=== PATIENT | male | born 1960 | race Caucasian/White ===

== ENCOUNTER 2016-07-16 12:22 | Emergency (ER) | payer OTHER ==
[~2016-07-16] VITALS: Ht 198.1 cm; Wt 104.3 kg
[2016-07-16] MEDS ORDERED: LOVASTATIN 20 M20 MG PO (12:30)
[2016-07-16] MEDS ORDERED: NEURONTIN600 MG PO (12:31)
[2016-07-16] MEDS ORDERED: PRINIVIL20 M1 PO (12:31)
[2016-07-16] MEDS ORDERED: PROAIR HFA8.5 GM INH (13:13)
[2016-07-16] MEDS ORDERED: DOXYCYCLINE 10100 MG PO (13:13)
[2016-07-16] MEDS ORDERED: PREDNISONE 20 M20 MG PO (13:13)
[2016-07-16 13:58] VITALS: BP 145/88
== END 2016-07-16 13:59 | disposition home or self-care (01) ==
LOC: ER 12:22
DX: J44.1 Chronic obstructive pulmonary disease with (acute) exacerbation (principal); J98.01 Acute bronchospasm; F17.200 Nicotine dependence, unspecified, uncomplicated; E11.9 Type 2 diabetes mellitus without complications; F17.210 Nicotine dependence, cigarettes, uncomplicated; I10 Essential (primary) hypertension; E78.00 Pure hypercholesterolemia, unspecified; Z88.0 Allergy status to penicillin

== ENCOUNTER 2018-11-10 09:19 | Emergency (ER) | payer OTHER ==
[~2018-11-10] VITALS: Ht 198.1 cm; Wt 99.8 kg
[~2018-11-10 09:19] MED LIST: DOXYCYCLINE 10100 MG PO; LOVASTATIN 20 M20 MG PO; NEURONTIN600 MG PO; PREDNISONE 20 M20 MG PO; PRINIVIL20 M1 PO; PROAIR HFA8.5 GM INH
[2018-11-10] MEDS ORDERED: CYMBALTA30 MG PO (09:24)
[2018-11-10] MEDS ORDERED: AMARYL2 MG PO (09:24)
[2018-11-10] MEDS ORDERED: GUAIFEN-CODEINE10 ML PO (10:09)
[2018-11-10 10:24] VITALS: BP 127/96
== END 2018-11-10 10:19 | disposition home or self-care (01) ==
LOC: ER 09:19
DX: J06.9 Acute upper respiratory infection, unspecified (principal); E11.9 Type 2 diabetes mellitus without complications; I10 Essential (primary) hypertension; E78.00 Pure hypercholesterolemia, unspecified; F17.210 Nicotine dependence, cigarettes, uncomplicated; Z88.0 Allergy status to penicillin; Z79.899 Other long term (current) drug therapy

== ENCOUNTER 2018-12-28 10:18 | Emergency (ER) | payer OTHER ==
[~2018-12-28] VITALS: Ht 198.1 cm; Wt 102.1 kg
[~2018-12-28 10:18] MED LIST changes: +AMARYL2 MG PO; +CYMBALTA30 MG PO; +GUAIFEN-CODEINE10 ML PO
[2018-12-28 10:25] VITALS: BP 145/78
[2018-12-28] MEDS ORDERED: MEDROLDOSEPACK PO (10:56)
== END 2018-12-28 11:07 | disposition home or self-care (01) ==
LOC: ER 10:18
DX: R21 Rash and other nonspecific skin eruption (principal); I10 Essential (primary) hypertension; E11.9 Type 2 diabetes mellitus without complications; E78.00 Pure hypercholesterolemia, unspecified; F17.210 Nicotine dependence, cigarettes, uncomplicated; Z88.0 Allergy status to penicillin

== ENCOUNTER → 2019-08-26 | Outpatient (CLI) | payer OTHER ==
[~2019-08-26] MED LIST changes: +MEDROLDOSEPACK PO
== END ==
LOC: ULTRA 11:28
DX: I70.213 Atherosclerosis of native arteries of extremities with intermittent claudication, bilateral legs (principal); E78.5 Hyperlipidemia, unspecified; I10 Essential (primary) hypertension; E11.40 Type 2 diabetes mellitus with diabetic neuropathy, unspecified; E11.9 Type 2 diabetes mellitus without complications

== ENCOUNTER → 2020-01-02 | Outpatient (CLI) | payer OTHER | LOC: CAT 13:31 | PROVIDERS: ATTEND Family Medicine | DX: Z12.2 Encounter for screening for malignant neoplasm of respiratory organs (principal); E78.5 Hyperlipidemia, unspecified; I10 Essential (primary) hypertension; E11.40 Type 2 diabetes mellitus with diabetic neuropathy, unspecified; R91.8 Other nonspecific abnormal finding of lung field; F17.200 Nicotine dependence, unspecified, uncomplicated ==

== ENCOUNTER → 2020-02-15 | Outpatient (CLI) | payer OTHER | LOC: PET 14:30 | PROVIDERS: ATTEND Internal Medicine | DX: R91.8 Other nonspecific abnormal finding of lung field (principal) ==

== ENCOUNTER 2020-03-09 06:08 | Inpatient (IN) | payer OTHER ==
[2020-03-06 10:51] LABS: BASOPHILS 2.2 % (0.0-2.0); EOSINOPHILS 1.7 % (0.0-3.0); HEMATOCRIT 46.3 % (42.0-52.0); HEMOGLOBIN 15.3 gm/dL (14.0-18.0); LYMPHOCYTES 28.1 % (24.0-44.0); MCHC 33.1 g/dL (28.0-37.0); MCV 90.5 fL (80.0-100.0); PLATELET COUNT 306 thou/uL (150-400); RBC 5.11 mil/uL (4.50-6.00); RDW 13.2 % (10.5-14.5); WBC 6.8 thou/uL (4.0-11.0)
[2020-03-06 11:05] LABS: URINE BILIRUBIN NEGATIVE (Negative); URINE BLOOD NEGATIVE (Negative); URINE CLARITY CLEAR; URINE COLOR YELLOW; URINE GLUCOSE-RANDOM* NEGATIVE (Negative); URINE KETONES NEGATIVE (Negative); URINE LEUKOCYTES-REFLEX NEGATIVE (Negative); URINE NITRITE-REFLEX NEGATIVE (Negative); URINE PROTEIN (DIPSTICK) NEGATIVE (Negative); URINE UROBILINOGEN 0.2 E.U./dl (0.2-1.0)
[2020-03-06 11:15] LABS: APTT 27.6 Seconds (24.5-32.8); PROTIME 10.5 Seconds (9.3-11.4)
[2020-03-06 11:18] LABS: ALBUMIN 4.2 g/dL (3.4-5.0); CALCIUM 9.4 mg/dL (8.5-10.1); CREATININE 0.9 mg/dL (0.7-1.3); POTASSIUM 4.5 mmol/L (3.5-5.1); TOTAL BILIRUBIN 0.6 mg/dL (0.2-1.0); TOTAL PROTEIN 7.3 g/dL (6.4-8.2)
--- NOTE | 2020-03-06 15:52 | EKG ---
[facility] [place] [address] ELECTROCARDIOGRAM REPORT Name: TRINITYSHAN Manuel Room #: PRE IN ..#: [id number] Admission: Attend Phys: Ankush Mandujano MD Discharge: Date of : 56 Report #: [id number] THIS REPORT FOR: cc: Gary Wade David J. 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
[~2020-03-09] VITALS: Ht 195.6 cm; Wt 107.3 kg
[~2020-03-09 06:08] MED LIST changes: +AMARYL2 MG PER TUBE; -AMARYL2 MG PO; +LOVASTATIN 20 M20 MG PER TUBE; -LOVASTATIN 20 M20 MG PO
[2020-03-09 07:53] VITALS: BP 141/79
[2020-03-09 14:39] VITALS: BP 117/64
[2020-03-09 15:39] VITALS: BP 112/56
[2020-03-09 16:38] VITALS: BP 113/55
--- NOTE | 2020-03-09 18:21 | NUR ---
PT ARRIVED TO ICU ROOM 251 VIA BED FROM PACU @ APPROX 1430. PT DROWSY BUT EASILY AWAKENED, IS APPROPRIATE AND FOLLOWS COMMANDS. O2 3L/MIN VIA NC PLACED, CONTINUOUS CARDIAC MONITORING W/ FREQUENT VS IN PROGRESS. R LAT CHEST TUBE TO 20CM SUCTION. CARDENE INFUSING @ 15MG/HR VIA PUMP. L RADIAL A-LINE IN PLACE AND FUNCTIONAL, ZEROED AND FLUSHED WITHOUT DIFFICULTY. GRADES 1 THRU 6 VISITING TEACHER SET UP UPON ARRIVAL TO UNIT. IV SITES BILATERAL FOREARMS FUNCTIONAL. PT REQUESTS "SOMETHING TO DRINK."
[2020-03-09 19:39] VITALS: BP 119/59
[2020-03-09 21:55] VITALS: BP 109/53
[2020-03-10] VITALS (15 sets, daily range): BP systolic 93–135; BP diastolic 49–75
[2020-03-10 06:21] LABS: HEMATOCRIT 38.9 % (42.0-52.0); HEMOGLOBIN 13.2 gm/dL (14.0-18.0); MCH 30.3 pg (26.0-34.0); MCV 89.3 fL (80.0-100.0); RBC 4.35 mil/uL (4.50-6.00); RDW 13.3 % (10.5-14.5); WBC 19.3 thou/uL (4.0-11.0)
[2020-03-10 06:56] LABS: CALCIUM 8.5 mg/dL (8.5-10.1); CREATININE 0.8 mg/dL (0.7-1.3); POTASSIUM 4.1 mmol/L (3.5-5.1)
--- NOTE | 2020-03-10 10:01 | NUR ---
SON CALLED AT 1000 TO CHECK ON THE PATIENT. HE WANTED TO MAKE SURE HE HAD A GOOD NIGHT AND WAS PROGRESSING IN HIS POC. I INFORMED HIM THAT HE IS IN PAIN DUE TO THE SURGERY AND CHEST TUBE BUT HAS BEEN SLEEPING OFF AND ON AND HE HAD A GOOD NIGHT. SON SAID HE WOULD CALL BACK THIS EVENING TO SEE HOW THE PATIENTS DAY WENT.
[2020-03-11] VITALS (68 sets, daily range): BP systolic 52–187; BP diastolic 31–102
--- NOTE | 2020-03-11 08:47 | NUR ---
ASSUMED CARE OF PT.PT UP IN CHAIR ON ARRIVAL INTO ROOM.VERY RESTLESS,ANXIOUS.GOTTEN BACK TO BED W ASSIST X1 (INITIALLY)-SAT ON SIDE OF BED.PT PALE,DIAPHORETIC,SKIN CLAMMY.HANDS,FINGERS,KNEES MOTTLED PURPLE.QUICK LISTEN WHILE PT UPRIGHT-JOHAN MOVING ANY AIR RT [place] POST.ASSITED INTO BED BY 2.O2 SATS DOWN INITIALLY TO .87-88%,HFNC UP TO 15L. HAD CALLED RE:? IV TYLENOL OR TORADOL PT SPLINTING,NOT COUGHING WELL, FULL OF RHONCHI. PCXR DONE (FULL UPRIGHT). PLACED ON BIPAP & UP TO 100%.2ND CALL TO .--VW
[2020-03-11 14:03] LABS: BE(vivo) -3.2 mmol/L (-2 to +3); HCO3 25.2 mmol/L (22.0-26.0); PCO2 58.8 mmHg (35.0-45.0); PO2 88.4 mmHg (80.0-100.0); sO2 95.2 % (92.0-98.0)
[2020-03-11 15:08] LABS: BE(vivo) -0.7 mmol/L (-2 to +3); HCO3 25.4 mmol/L (22.0-26.0); sO2 96.6 % (92.0-98.0)
--- NOTE | 2020-03-11 16:32 | NUR ---
CONSULTED TO PLACE A MIDLINE FOR A PATIENT NEEDING ADDITIONAL ACCESS. THE RIGHT CEPHALIC VEIN WAS WIDLEY PATENT. A #4F POWER INJECTABLE MIDLINE WAS PLACED. THE LINE WAS TRIMMED TO 12CM AND ADVANCED WITHOUT DIFFICULTY. SECURED AND RELEASED FOR USE
[2020-03-11 22:38] LABS: HEMATOCRIT 41.1 % (42.0-52.0); HEMOGLOBIN 13.1 gm/dL (14.0-18.0); MCH 29.6 pg (26.0-34.0); MCV 92.7 fL (80.0-100.0); RBC 4.44 mil/uL (4.50-6.00); RDW 13.8 % (10.5-14.5); WBC 19.1 thou/uL (4.0-11.0)
[2020-03-11 22:41] LABS: BE(vivo) -5.1 mmol/L (-2 to +3); HCO3 22.7 mmol/L (22.0-26.0); PCO2 53.5 mmHg (35.0-45.0); PO2 112.3 mmHg (80.0-100.0); sO2 97.3 % (92.0-98.0)
[2020-03-11 22:42] LABS: pH 7.246 (7.360-7.450)
[2020-03-11 22:44] LABS: CALCIUM 8.5 mg/dL (8.5-10.1); POTASSIUM 5.1 mmol/L (3.5-5.1)
[2020-03-12] VITALS (50 sets, daily range): BP systolic 88–162; BP diastolic 35–109
--- NOTE | 2020-03-12 03:51 | NUR ---
ASSUMED PT CARE AT 1900. VSS PT HOWEVER GETTING INCREASINGLY CONFUSED, WAS TRYING PULL ON BIPAP. PT STATED " I WANT SOMETHING TO DRINK, I AM TIRED, I DONT WANT TO THIS THIS ANYMORE, JUST PUT ME OUT, JUST KILL ME NOW." RN ATTEMPTED TO REASSURE AND EDUCATE PT. 1999; PT PULLED OUT LEFT RADIAL ART LINE 2007; DR. GUEVARA NOTIFIED OF ART BEING PULLED OUT BY PT AND THE STATEMENT PT MADE. RN NOTIFIED DR THAT PT WAS WEARING OUT. DR GUEVARA ASKED RN TO CALL DR LANGSTON AND UPDATE HIM ON PT STATUS SUGGESTING PT MAY NEED TO BE INTUBATED 2020; RN CALLED DR LANGSTON, RN UPDATED HIM ON PT STATUS, DR LANGSTON RX ONETIME DOSE OF 2MG ATIVAN AND THAT HE WILL CALL BACK 2028; DR LANGSTON CALLED RN BACK, ASKED THAT RN CALL ER DOC TO COME INTUBATE PT STAT. DR LANGSTON ALSO ORDERED ABG FOR 30 MINUTES POST INTUBATION. 2030; CALLED ER TO REQUEST DR PHAM FOR A STAT INUBATION
--- NOTE | 2020-03-12 04:13 | NUR ---
INTUBATION 2049; ASSISTED VENTILATION 2051; PADS APLLIED 2052; PT HR 48; 0.5 ATROPINE GIVEN PER ER DR. PHAM 2058; PT HR 52, 0.5 ATROPINE GIVEN 2099; PT BP 57/37, LEVO GTT STATED PER DR. PHAM 2106; 40MG OF ETOMIDATE 2107; 100MG OF ROCURONIUM 2108; PT INTUBAED BY DR. PHAM WITH A 8.0 ETT 25 AT LIP. VENT SETINGS; AC-20, TV-550, PEEP-5 & FIO2-80% 2112; OGT PLACED AT 60CM 2129; CXR TO CONFIRM TUBE PLACEMENT 2138; LEFT RADIAL ART LINE PLACED BY DR GUEVARA
[2020-03-12 04:18] LABS: BE(vivo) -0.8 mmol/L (-2 to +3); HCO3 24.4 mmol/L (22.0-26.0); PCO2 42.6 mmHg (35.0-45.0); PO2 245.7 mmHg (80.0-100.0); pH 7.376 (7.360-7.450); sO2 99.5 % (92.0-98.0)
--- NOTE | 2020-03-12 04:29 | NUR ---
PT IS STABLE NOW, PT CURRENTLY ON PROPOFOL, CARDIZEM, NS, AND INSULIN GTT. PT SPONTANEOUSLY OPENS EYES WHEN SEDATION IS LIGHTED, PT HAS POSIIVE COUGH AND GAG, FENTANYL 25-50MCG PRN. CHEST TUBES INTACT. WILL CONTINUE TO CLOSELY MOTITOR.
[2020-03-12 04:48] LABS: HEMATOCRIT 38.6 % (42.0-52.0); HEMOGLOBIN 12.7 gm/dL (14.0-18.0); MCH 30.1 pg (26.0-34.0); MCHC 32.8 g/dL (28.0-37.0); MCV 91.9 fL (80.0-100.0); RBC 4.2 mil/uL (4.50-6.00); RDW 13.8 % (10.5-14.5); WBC 14.7 thou/uL (4.0-11.0)
[2020-03-12 04:56] LABS: CALCIUM 8.7 mg/dL (8.5-10.1); CREATININE 0.9 mg/dL (0.7-1.3); POTASSIUM 4.7 mmol/L (3.5-5.1)
--- NOTE | 2020-03-12 07:15 | EKG ---
[facility] [place] [address] ELECTROCARDIOGRAM REPORT Name: SHAN PETERSEN Room #: 251-P ADM IN M.R.#: [id number] Admission: 03/09/20 Attend Phys: Ankush Mandujano MD Discharge: Date of : 56 Report #: [id number] THIS REPORT FOR: cc: Gary Wade David J. DO Santiago, Patrick MD 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[facility] : 1960 Requested By: Ankush Mandujano Order Number: [id number] MD: Vignesh Denson Measurements Intervals Rew Rate: 149 P: [place]: QRS: 63 QRSD: 103 T: 70 QT: 304 QTc: 479 Interpretive Statements Suspect Atrial flutter with varied AV block, Low voltage, extremity and precordial leads Compared to ECG 03/06/2020 10:46:58 ST (T wave) deviation now present Sinus rhythm no longer present Electronically Signed On 03-12-2020 7:15:12 ANALYST GEOCHEMICAL PROSPECTING by Vignesh Denson [email or web address] <ELECTRONICALLY SIGNED> By: Vignesh Denson MD, FACC 03/12/20 0715 134 134 Vignesh Denson MD, FACC /EPI
--- NOTE | 2020-03-12 07:31 | NUR ---
PT'S SON UPDATED ABOUT MOST RECENT EVENTS AT 0732AM.
--- NOTE | 2020-03-12 09:29 | NUR ---
UPDATED DR. GUEVARA AND GEORGE JEFFERSON ON PT STATUS INCLUDING HIS RESTLESSNESS, THEN ACCOMPANIED RESP DISTRESS, AFIB RVR.
--- NOTE | 2020-03-12 09:40 | NUR ---
pt became anxious, then despite rebecca wrist restraints intact, he pulled out his OGT and disconnected the vent tubing from the ett tube. copious clear saliva all over his lower face and neck. face red, pulling at rebecca wrist restraints, tachypneic, resp labored, afib rvr-150's, replaced on vent. sedation increased. pt nodding yes to complaint associated with alcohol withdraw- see ciwa.
--- NOTE | 2020-03-12 11:15 | NUR ---
VAT CONSULTED FOR A PICC FOR MORE ACCESS PT ONLY HAS A ML NOW. OTW EXCHANGE NOT DONE PT NEEDED ML FOR ACCESS FOR PROPOFOL AND NEED FOR PT TO REMAIN CALM FOR PROCEDURE. A 5FRTLPICC PLACED IN RUABRACHIAL AND CXR ORDERED FOR TIP CONFIRMATION. IF TIP IS IN THE SVC IT IS APPROPRIATE FOR USE. PLEASE SEE NI FOR DETAILS
--- NOTE | 2020-03-12 11:43 | NUR ---
ASSESSMENT: CM REVIEWED CHART. PT IS S/P BRONCH AND POD 3 RIGHT THORACTOMY. PT IS CURRENTLY ON THE VENTILATOR AND SEDATED. PT IS A RECENT DIAGNOSIS OF SMALL CELL LUNG CA. PT ADMITS FROM HOME WHERE HE LIVES ALONE. CM SPOKE WITH PATIENTS SON JANEEN WHO REPORTS HE IS ABLE TO HELP ASSIST PT NEEDED. PT LIVES IN A SPLIT LEVEL HOME WITH ABOUT 5 STEPS WITH HANDRAILS TO THE UPPER LEVEL AND ABOUT 5 STEPS WITH HANDRAILS TO THE LOWER LEVEL. PT IS NORMALLY INDEPENDENT WITH ADLS AND AMBULATION AND DOES NOT HAVE ANY DME. PT IS STILL DRIVING AND HAS NO HX OF HH/SNF/ACUTE REHAB. CM DISCUSSED ROLE. CM AVAILABLE TO ASSIST NEEDED ONCE PATIENT IS MORE STABLE TO ASSIST WITH ANY DISCHARGE NEEDS.
--- NOTE | 2020-03-12 12:00 | NUR ---
DR. SANDERSON PREVIOUSLY PRESENT. UPDATED ON PT STATUS INCLUDING RESTLESSNESS, PULLING OUT OG TUBE AND VENT TUBING DESPITE GREG WRIST RESTRAINTS. INFORMED OF PT NODDING YES TO THE MAJORITY OF THE CIWA SCALE SYMPTOMS.
--- NOTE | 2020-03-12 19:00 | NUR ---
PT ON LATERAL ROTATION, THEN WHEN ON RIGHT SIDE & EXPERIENCING RESP DISTRESS, HE BROUGHT UP LARGE AMOUNT THICK MERCADO SECRETIONS PER ETT. RESP STATUS IMPROVED, PT CALMER. STATUS IMPROVED AT THIS TIME. SON CALLED X 2 TODAY, INQUIRING REGARDING PT STATUS. UPDATED. ALL QUESTIONS ANSWERED.
[2020-03-13] VITALS (21 sets, daily range): BP systolic 104–165; BP diastolic 38–77
[2020-03-13 00:10] LABS: HEMATOCRIT 36.7 % (42.0-52.0); MCH 29.6 pg (26.0-34.0); MCHC 32.5 g/dL (28.0-37.0); MCV 90.9 fL (80.0-100.0); RBC 4.04 mil/uL (4.50-6.00); RDW 13.3 % (10.5-14.5); WBC 14.7 thou/uL (4.0-11.0)
--- NOTE | 2020-03-13 06:00 | NUR ---
REMAINS INTUBATED AND SEDATED WITH PROPOFOL GTT 30 MCG BECOMES VERY AGITATED AT TIMES. PRN MED FOR SEDATION. RESTRAINED 190 CC RIGHT CHEST TUBE drg this shift. cardizem 15 mg amio gtt 23 cc/hr insulin gtt. 1200 cc uo this shift will cont to monitor.
[2020-03-13 06:44] LABS: CALCIUM 8.3 mg/dL (8.5-10.1); CREATININE 0.6 mg/dL (0.7-1.3); POTASSIUM 3.7 mmol/L (3.5-5.1)
--- NOTE | 2020-03-13 09:08 | NUR ---
Recommend start enteral nutrition in next 24 hr. Suggest vital AF 1.2 at goal of 70ml/hr. If no feeding pump available, use jevity 1.5, 5 cartons per day. Cl lab is elevated, defer fluid needs to physician.
--- NOTE | 2020-03-13 16:37 | NUR ---
ASSUMED CARE @ 0700 03/13/20, PT ASSESSMENTS AND VSS COMPLETE PER ICU PROTOCOL. PT ENCOUNTERED ON A PROPOFOL GTT FOR VENT MANAGEMENT. DR GUEVARA AND JANEEN VAZQUEZ TO HERE THIS AM FOR TO ROUND, ORDERS FOR PRECEDEX PLACED TO TRY AND TITRATE OFF PROPOFOL OFF, RN NOTICES THAT PRECEDEX IS TITRATED UP , PT STARTS TO GET BRADYCARDIC, PRECEDEX TURNED OFF AND DR GUEVARA INFORMED, PT PLACED BACK ON PROPOFOL. DURING THIS BRADYCARDIC EPISODE, AMIO AND CARDIZEM GTT IS TURNED OFF AND DR GUEVARA AND DR CHEN IS MADE AWARE OF THIS. 09 HANNAH PETERSEN CALLED FOR AN UPDATE ON THE PATIENT, RN VERIFIES CODE AND UPDATE IS GIVEN AT THIS TIME.
[2020-03-14] VITALS (24 sets, daily range): BP systolic 97–151; BP diastolic 41–74
--- NOTE | 2020-03-14 04:04 | NUR ---
ASSUMED PT CARE AT 1900. PT INTUBATED AT SEDATED ON PROPOFOL AT 50MCG. PT DOESNT FOLLW COMMANDS BUT MOVES ALL EXTREMITIES WHENEVER SEDATION IS LIGHTENED. SYSTOLIC BP ELEVATED RANGE OF 180s - 200s AROUND 8PM.ENALAPRILAT GIVEN, BP DOWN TO 130s-150s. PT REMAINED STABLE OVER NOC, NO ACUTE EVENTS, WILL CONTINUE TO MONITOR PER POC.
--- NOTE | 2020-03-14 07:21 | NUR ---
PATIENT CONTINUES TO BE INTUBATED. WHEN SUCTIONING PATIENT RT GOT THICK WHITE/YELLOW WITHOUT A GAG FROM PATIENT.
[2020-03-14 09:44] LABS: CALCIUM 8.2 mg/dL (8.5-10.1); CREATININE 0.5 mg/dL (0.7-1.3); POTASSIUM 3.2 mmol/L (3.5-5.1)
--- NOTE | 2020-03-14 09:58 | 2DMMODE ---
[facility] [place] [address] 2 D/M-MODE ECHOCARDIOGRAM Name: SHAN PETERSEN Room #: 251-P ADM IN M.R.#: [id number] Admission: 03/09/20 Attend Phys: Ankush Mandujano MD Discharge: Date of : 56 Report #: [id number] THIS REPORT FOR: cc: Gary Wade,Vignesh Taylor MD [facility] ~ APPROVED REPORT Study performed: 03/14/2020 09:23:37 EXAM: Comprehensive 2D, Doppler, and color-flow Echocardiogram Patient Location: ICU Room #: 251 Status: routine BSA: 2.35 HR: 84 bpm BP: 118/50 mmHg Rhythm: Atrial Fibrillation Other Information Study Quality: Technically Difficult Technically limited study due to lung disease, patient on ventilator, inability to position patient. Indications Diabetes Atrial Fibrillation Hypertension/HDD 2D Dimensions IVC: 24.00 mm Aortic Valve AoV Peak Edil.: 0.71 m/s AO Peak Gr.: 2.04 mmHg LVOT Max P.58 mmHg LVOT Max V: 0.80 m/s Left Ventricle The left ventricle is normal size. There is normal LV segmental wall motion. There is normal left ventricular wall thickness. Left ventricular systolic function is normal. The left ventricular ejection fraction is within the normal range. LVEF is 55-60%. This study is not technically sufficient to allow evaluation of the LV diastolic function due to atrial fibrillation. [facility] [address] [place] [address] 2 D/M-MODE ECHOCARDIOGRAM Name: SHAN PETERSEN Room #: 251-P ADM IN M.R.#: [id number] Admission: 03/09/20 Attend Phys: Ankush Mandujano MD Discharge: Date of : 56 Report #: [id number] Right Ventricle The right ventricle is normal size. The right ventricular systolic function is normal. Atria The left atrium size is normal. The right atrium size is normal. Aortic Valve The aortic valve is normal in structure. No aortic regurgitation is present. There is no aortic valvular stenosis. Mitral Valve The mitral valve is normal in structure. There is no mitral valve regurgitation noted. No evidence of mitral valve stenosis. Tricuspid Valve The tricuspid valve is normal in structure. There is no tricuspid valve regurgitation noted. Pulmonic Valve The pulmonary valve is normal in structure. There is no pulmonic valvular regurgitation. Great Vessels The aortic root is normal in size. The inferior vena cava is dilated with no inspiratory collapse. Pericardium There is no pericardial effusion. <Conclusion> Study performed in atrial fibrillation Normal ventricular size and wall thickness Ejection fraction 55% Normal right ventricular size and function Normal atrial size No evidence of aortic/mitral valve dysfunction No tricuspid valve insufficiency No pericardial effusion <ELECTRONICALLY SIGNED> By: Vignesh Denson MD, [facility] 11/957 7 7 Vignesh Denson MD, FACC /INF
--- NOTE | 2020-03-14 20:06 | PATH ---
[facility] [place] [address] PATHOLOGY RPT PROCEDURE Name: CLIFFORD HI Room #: 251-P ADM IN M.R.#: [id number] Admission: 03/09/20 Date of : 56 Discharge: Report #: [id number] Path Case #: [id number] [facility] Accession Number: [id number] . 01 Material submitted: . PART A: lung - RIGHT LOWER LOBE BIOPSY - FS. Modifiers: right, lower lobe PART B: lymph node - RIGHT INTERLOBAR NODE 9. Modifiers: right PART C: lymph node - PULMONARY LIGAMENT LYMPH NODE 11 PART D: lymph node - HILAR LYMPH NODE 10 PART E: lymph node - SECOND HILAR NODE 10. Modifiers: second PART F: lymph node - THRID HILAR NODE 10. Modifiers: third PART G: lymph node - 11R LYMPH NODE PART H: lung - RIGHT LOWER LOBE LUNG. Modifiers: right, lower lobe . 01 Clinical history: . RIGHT LUNG MASS PATIENT UNDERGOING THORACOSCOPY, BRONCHOSCOPY AND THORACOTOMY. . 02 Frozen section diagnosis: . FROZEN SECTION DIAGNOSIS: (Marilyn Bond M.D.) . FSA1. Right lower lobe biopsy: - POSITIVE FOR MALIGNANCY, FAVOR NON-SMALL CELL CARCINOMA. . . These findings are discussed with Dr. Ankush Mandujano in OR7 at [facility] and a written report is placed in the patient's chart. . . FROZEN SECTION GROSS DESCRIPTION: A. Specimen is received fresh from the OR labeled with patient's name, and "right lower lobe biopsy", consists of 10 needle core biopsies of white kaye and necrotic tissue measuring an aggregate of 0.3 x 0.3 x 0.1 cm. These represent approximately three cores submitted on gauze. The specimen is entirely submitted for frozen section as FSA1, subsequently submitted for permanent sections as A1. . . Frozen section performed at [facility], [address] [place] [address] , [place] [address]. IZV/QMS . 03 Diagnosis: A. "Right lower lobe biopsy", biopsy: - INVASIVE NON-SMALL CELL CARCINOMA. . B. "Right inner lobar node 9", biopsy: [address] [address] PATHOLOGY RPT PROCEDURE Name: CLIFFORD HI Room #: 251-P [facility] IN .R.#: [id number] Admission: 03/09/20 Date of : 56 Discharge: Report #: [id number] Path Case #: [id number] - Lymph node with no evidence of metastatic carcinoma. (1 node). . C. "Pulmonary ligament lymph node 11", biopsy: - Lymph node with no evidence of metastatic carcinoma. (1 node). . D. "Hilar lymph node 10", biopsy: - Lymph node with no evidence of metastatic carcinoma. (1 node). . E. "Second hilar node 10", biopsy: - Lymph node with no evidence of metastatic carcinoma. (1 node). - Prominent blood vessel and nerve also present. . F. "Third hilar node 10", biopsy: - Lymph node with no evidence of metastatic carcinoma. (1 node). . G. "11 r lymph node", biopsy: - Lymph node with no evidence of metastatic carcinoma. (1 node). . H. "Right lower lobe lung", lobectomy: - LUNG WITH INVASIVE POORLY DIFFERENTIATED CARCINOMA SHOWING SQUAMOUS DIFFERENTIATION AND BASALOID FEATURES, MEASURING 4.8 CM GROSSLY; MARGINS FREE OF INVASIVE CARCINOMA, CLOSEST MARGIN (PARENCHYMAL STAPLE LINE) 0.2 CM AWAY. - Lymph nodes, 4 parenchymal, with no evidence of metastatic carcinoma. (4 nodes). . (CLW:marycruz; 03/14/2020) . . Surgical Pathology Cancer Case Summary LUNG: Resection . Procedure ___ Lobectomy . Specimen Laterality ___ Right . Tumor Site ___ Lower lobe of lung . Tumor Size Greatest dimension (centimeters): 4.8 cm . Tumor Focality ___ Single focus . Histologic Type [address] [address] PATHOLOGY RPT PROCEDURE Name: CLIFFORD HI Room #: 251-P ADM IN M.R.#: [id number] Admission: 03/09/20 Date of : 56 Discharge: Report #: [id number] Path Case #: [id number] ___ Other histologic type not listed (specify): Invasive poorly differentiated carcinoma with squamous differentiation and basaloid features. . + Histologic Grade + ___ G3: Poorly differentiated . Visceral Pleura Invasion ___ Not identified . Lymphovascular Invasion ___ Not identified . Direct Invasion of Adjacent Structures ___ No adjacent structures present . Margins ___ All margins are uninvolved by tumor . Margins examined (specify): Parenchymal and bronchovascular . Distance of invasive carcinoma from closest margin (centimeters): 0.2 cm Specify closest margin: Parenchymal . Regional Lymph Nodes Number of Lymph Nodes Involved: 0 . Number of Lymph Nodes Examined: 10 . Treatment Effect ___ No known presurgical therapy . Pathologic Stage Classification (pTNM) (AJCC 8th Edition) Primary Tumor (pT) ___ pT2b:Tumor >4 cm, but <=5 cm in greatest dimension . Regional Lymph Nodes (pN) ___ pN0:No regional lymph node metastasis . (CLW:marycruz; 03/14/2020) R 03/14/20201957 Local . 03 Comment: Properly controlled immunohistochemical stains are performed. . Block H4: AE1/AE3 - tumor cells very focally reactive; [address] [address] PATHOLOGY RPT PROCEDURE Name: CLIFFORD HI Room #: 251-P ADM IN M.R.#: [id number] Admission: 03/09/20 Date of : 56 Discharge: Report #: [id number] Path Case #: [id number] P63 - tumor cells very focally reactive; P40 - tumor cells very focally reactive; TTF-1 - tumor cells nonreactive; Napsin A - tumor cells nonreactive; CD56 - tumor cells nonreactive; Synaptophysin - tumor cells nonreactive; CK7 - tumor cells very focally reactive; CK20 - tumor cells nonreactive. . Block H7: AE1/AE3 - nonreactive. . Block H4 is co-reviewed with Dr. Ashley Mancera. Clinical and radiographic correlation is recommended. . (CLW:marycruz; 03/14/2020) . 03 Electronically signed: . Yelena Serrano MD, Pathologist NPI- [id number] . 01 Gross description: . A. PLEASE SEE GROSS DESCRIPTION UNDER FROZEN SECTION. . B. The specimen is received in formalin, labeled "Kolton Clifford, right interlobar node 9" and consists of a lymph node measuring 0.5 x 0.4 x 0.3 cm showing black-kaye cut surfaces. The specimen is entirely submitted in B1. . C. The specimen is received in formalin, labeled "Kolton, Clifford, pulmonary ligament lymph node 11" and consists of 2 segments of yellow-black tissue measuring 0.6 x 0.4 x 0.2 cm and 0.7 x 0.6 x 0.3 cm which are entirely submitted in C1. . D. The specimen is received in formalin, labeled "Hi Clifford, hilar lymph node 10" and consists cysts of a segment of black-yellow tissue measuring 1.4 x 1.4 x 0.7 cm showing black-hill cut surfaces. The specimen is entirely submitted in D1. . E. The specimen is received in formalin, labeled "Hi Clifford, second hilar node 10" and consists of a segment of yellow-black tissue measuring 0.6 x 0.4 x 0.3 cm which is entirely submitted in E1. . F. The specimen is received in formalin, labeled "HiClifford, third hilar node 10" and consists of a fragment of brown tissue measuring 0.4 x 0.4 x 0.2 cm which is entirely submitted in F1. . G. The specimen is received in formalin, labeled "Cliffodr Hi, 11R [facility] [address] [place] [address] PATHOLOGY RPT PROCEDURE Name: CLIFFORD HI E Room #: 251-P ADM IN M.R.#: [id number] Admission: 03/09/20 Date of : 56 Discharge: Report #: [id number] Path Case #: [id number] lymph node" and consists of a segment of black brown tissue measuring 1.4 x 1.2 x 0.8 cm showing black hill cut surfaces. The specimen is entirely submitted in G1. . H. The specimen is received in formalin, labeled "Clifford Hi, right lower lobe lung" and consists of a 244 g right lower lobe measuring 15.5 x 12.5 x 5.7 cm with a 0.5 cm long bronchovascular stump. There are 2 lines of irvin measuring 1.6 cm and 2.6 cm. The visceral pleural is purple with a palpable mass/induration that grossly approaches the longer staple line measuring approximately 4.2 cm in greatest dimension. The pleura in this area is inked blue, and the staple lines are removed and further inked yellow. The bronchi are opened revealing no gross lesions. Serial sectioning reveals a white mass with firm to friable cut surfaces measuring 4.8 x 3.1 cm that abuts the pleura, 0.8 cm to the bronchovascular stump, and approaches the longer staple line. The mass grossly approaches one bronchi. The uninvolved parenchyma is brown to maroon with no additional masses. 4 additional lymph nodes are identified at the hilum. [employer] sections are submitted as follows: . H1: Bronchovascular stump H2: Longer staple line H3: Mass to bronchi H4: Mass to pleura H5: Additional mass H6: Uninvolved parenchyma H7: 1 trisected lymph node H8: 3 intact lymph nodes (SDY; 03/11/2020) SYU/SYU 03/12/2020 0703 Local . 03 Pathologist provided ICD-10: C34.31 . 03 CPT . 032153, 198803, 058240, T75121, J15912 Specimen Comment: A courtesy copy of this report has been sent to [phone], [phone] Specimen Comment: [phone] Specimen Comment: Report sent to / DR MAGANA Performed at: [address] [id number] MD Kalin Brand MD Phone: [phone] Performed at: [address] [id number] MD Marilyn Bond MD Phone: [phone] Performed at: [address] [address] PATHOLOGY RPT PROCEDURE Name: CLIFFORD HI Room #: 251-P [facility] IN M.R.#: [id number] Admission: 03/09/20 Date of : 56 Discharge: Report #: [id number] Path Case #: [id number] [facility] [place] [address] [place] [address], [place], [place] [id number] MD Brooke Calles MD Phone: [phone]
[2020-03-15] VITALS (20 sets, daily range): BP systolic 91–140; BP diastolic 40–71
--- NOTE | 2020-03-15 03:53 | NUR ---
Arterial line went flat and nurse went to assess it. Nurse flushed it, pulse felt, it is weak. Waver form is back, however, it is dampened. Nurse to continue to monitor arterial line site.
--- NOTE | 2020-03-15 04:46 | NUR ---
Patient not progressing towards plan of care. When sedation lightened, he becomes tachypnic RR upper 20's, tachycardic with heart rates in the lower 100's, and hypertensive with blood pressures reading in the upper 100's. He opened his eyes and nurse asked him if he were in pain, in which he relied yes by nodding with eyes wide open. Pain medication was provided. Arterial line no longer has a good wave form and will not draw. Cuff pressures are 30-50 points higher. It is a dampened waveform. Nurse to continue to monitor patient status. Plan of care is to continue to evaluate readiness to wean off ventilator, lighten sedation as patient tolerates, monitor vital signs, monitor chest tube site and output. No crepitus noted.
[2020-03-15 06:23] LABS: CALCIUM 8.2 mg/dL (8.5-10.1); CREATININE 0.7 mg/dL (0.7-1.3); POTASSIUM 3.6 mmol/L (3.5-5.1)
--- NOTE | 2020-03-15 11:04 | O ---
[facility] [place] [address] OPERATIVE REPORT Name: SHAN PETERSEN Room #: 251-P [facility] IN M.R.#: [id number] Admission: 03/09/20 Attend Phys: Ankush Mandujano MD Discharge: Date of : 56 Report #: [id number] THIS REPORT FOR: cc: Gary Wade David J. DO Forman, John M. MD ~ CC: Gary Mandujano DATE OF SERVICE: 03/09/2020 PREOPERATIVE DIAGNOSIS: Right lower lobe of lung lesion. POSTOPERATIVE DIAGNOSIS: Right lower lobe of lung lesion, suspicious for non-small cell carcinoma by frozen section. OPERATION: Bronchoscopy, right thoracotomy with lower lobectomy and mediastinal lymph node dissection. SURGEON: Ankush Mandujano MD COVERAGE ANALYST: GEORGE Wall. ANESTHESIA: General. INDICATIONS: The patient is a 60-year-old with a right lower lobe pulmonary lesion found when the patient had a screening CT scan. PET scan shows activity in this lesion. The patient has decent pulmonary function by spirometry. 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 FINDINGS AND TECHNIQUE: After general anesthesia was established, a flexible diagnostic bronchoscopy was performed. No endobronchial lesions were noted. A double lumen tube was placed, but we could not get a good position of the tube and therefore, a standard tube was placed with a bronchial lois. This was positioned under bronchoscopic guidance. The patient was positioned with right side up. Exposure was obtained through right posterolateral thoracotomy entering the fifth interspace using a nerve sparing, rib sparing approach. The lesion in the lower lobe was along the oblique fissure, but did not appear across it grossly. Core biopsies were taken of this and this showed a suspicion of non-small cell carcinoma by frozen. With this information, the lobectomy was performed. Dissection was began at the hilum to expose the interlobar pulmonary artery dissection along the pleural [facility] [address] [place] [address] OPERATIVE REPORT Name: TRINITYSHAN Room #: 251-P [facility] IN ..#: [id number] Admission: 03/09/20 Attend Phys: Ankush Mandujano MD Discharge: Date of : 56 Report #: [id number] reflection of the mediastinum was performed. Pulmonary ligament was divided. Pulmonary ligament lymph nodes were submitted for permanent pathology. Inferior pulmonary vein was identified. Pulmonary arterial branches to the lower lobe were ligated and divided. Inferior pulmonary vein was stapled and divided. Centrally, the rudimentary fissure between the middle lobe and lower lobe was completed with the stapler to exclude any communication with the lower lobe. When all of the vessels were divided, the bronchus was clamped and the ventilation was tested. Bronchus was stapled and divided. The lobe was submitted for permanent pathology. Bronchial stump was tested and found to be secure. Hemostasis was ascertained. Lymph nodes in the hilum were dissected and submitted for permanent pathology and the area above the azygos vein was explored for nodes. When hemostasis was satisfactory, chest was irrigated with antibiotic solution. The middle lobe and upper lobe were tacked together to prevent torsion. Two chest tubes were brought through separate stab wounds and then the chest was closed in the usual fashion to complete the nerve sparing, rib sparing approach. The patient was taken to the recovery area in good condition having tolerated the procedure well. All counts reported as correct. <ELECTRONICALLY SIGNED> By: Ankush Mandujano MD 03/15/20 1104 1310 1355 Ankush Mandujano MD /nt
--- NOTE | 2020-03-15 14:37 | NUR ---
0700-ASSUMED CARE OF PT.--VW
[2020-03-16] VITALS (34 sets, daily range): BP systolic 87–216; BP diastolic 45–89
--- NOTE | 2020-03-16 05:23 | NUR ---
ASSUMED PT ARE AT 1900. VSS. PT INTUBATED AT SEDATED. SEDATION VACATION FOR 7 MINUTES FROM PROPOFOL AT 50MCG. PT FOLLOWS PARTIAL COMMANDS; WILL OPEN EYES BUT WONT SQUEEZ RN'S HANDS OR WIGGLE TOES. PT NOW ON 40MCG OF PROPOFOL; HE IS TOLERATING THIS WELL. DRESSING CHANGE TO R SIDE SURGICAL SITE THIS SHIFT, SITE UNDER DRESSING IS APPROXIMATED WELL AND INTACT. CHEST TUBE IN PLACE; DRESSING CDI. PT GOT I CARTON OF JEVITY 1.5 BOLUS AT 2029; TOLERATED WELL. PT IS STABLE FOR NOW. WILL CONTINUE TO CLOSELY MONITOR.
[2020-03-16 07:46] LABS: HEMATOCRIT 34.5 % (42.0-52.0); HEMOGLOBIN 11.7 gm/dL (14.0-18.0); MCH 30.1 pg (26.0-34.0); MCHC 33.7 g/dL (28.0-37.0); MCV 89.1 fL (80.0-100.0); RBC 3.88 mil/uL (4.50-6.00); RDW 13.4 % (10.5-14.5); WBC 15.7 thou/uL (4.0-11.0)
[2020-03-16 08:07] LABS: CREATININE 0.7 mg/dL (0.7-1.3); POTASSIUM 3.2 mmol/L (3.5-5.1)
[2020-03-16 11:57] LABS: BE(vivo) 2.3 mmol/L (-2 to +3); PO2 99.7 mmHg (80.0-100.0); pH 7.464 (7.360-7.450); sO2 97.9 % (92.0-98.0)
--- NOTE | 2020-03-16 12:23 | NUR ---
TOOK OVER CARE OF PATIENT AT 0700. CPAP TRIAL DONE AT 1030 TO 1130, RT ARLETH BLOOD FOR ABG. DR. HULL AT BEDSIDE AT 1200 AND SAID LONG PATIENTS ABG LOOKS GOOD AND DR. WICK IS OK WITH IT THEN WE WILL WORK ON EXTUBATION. DR. WICK AT BEDSIDE AT 1225 AND HE SAID LONG THE ABG RESULTS ARE GOOD THEN WE WILL WORK ON EXTUBATION.
[2020-03-16 16:11] LABS: BE(vivo) 1.6 mmol/L (-2 to +3); HCO3 25.2 mmol/L (22.0-26.0); PCO2 36.5 mmHg (35.0-45.0); PO2 77.2 mmHg (80.0-100.0); pH 7.457 (7.360-7.450); sO2 96.1 % (92.0-98.0)
[2020-03-17] VITALS (42 sets, daily range): BP systolic 82–158; BP diastolic 31–74
[2020-03-17 04:51] LABS: BE(vivo) -2.3 mmol/L (-2 to +3); HCO3 21.8 mmol/L (22.0-26.0); PCO2 35.3 mmHg (35.0-45.0); PO2 83.1 mmHg (80.0-100.0); pH 7.408 (7.360-7.450); sO2 96.4 % (92.0-98.0)
[2020-03-17 05:08] LABS: HEMATOCRIT 35.8 % (42.0-52.0); HEMOGLOBIN 11.4 gm/dL (14.0-18.0); MCHC 31.8 g/dL (28.0-37.0); MCV 91.2 fL (80.0-100.0); RBC 3.93 mil/uL (4.50-6.00); RDW 13.9 % (10.5-14.5); WBC 16.1 thou/uL (4.0-11.0)
[2020-03-17 05:18] LABS: POTASSIUM 3.1 mmol/L (3.5-5.1)
[2020-03-17 05:19] LABS: CALCIUM 7.8 mg/dL (8.5-10.1); CREATININE 0.8 mg/dL (0.7-1.3)
--- NOTE | 2020-03-17 10:35 | NUR ---
ASSUMED CARE OF PATIENT AT 0700. DR. MARCH AT BEDSIDE AT 0930 HE SAID HE THINKS THE PATIENT HAS CRITICAL CARE NEUROMYOPATHY AND THAT THE ONLY THING TO DO IS GIVE THE PATIENT TIME. HE CALLED BACK ABOUT 1 MINUTES LATER WITH NEW LAB PALLAVI.
[2020-03-17 14:06] LABS: ANA INTERPRETATION Negative (Negative)
[2020-03-18] VITALS (31 sets, daily range): BP systolic 104–159; BP diastolic 35–67
[2020-03-18 05:34] LABS: HEMATOCRIT 36.2 % (42.0-52.0); HEMOGLOBIN 11.8 gm/dL (14.0-18.0); MCH 29.1 pg (26.0-34.0); MCHC 32.5 g/dL (28.0-37.0); MCV 89.6 fL (80.0-100.0); RBC 4.04 mil/uL (4.50-6.00); RDW 13.6 % (10.5-14.5); WBC 19.2 thou/uL (4.0-11.0)
[2020-03-18 05:45] LABS: CALCIUM 7.9 mg/dL (8.5-10.1); CREATININE 0.6 mg/dL (0.7-1.3); POTASSIUM 3.8 mmol/L (3.5-5.1)
--- NOTE | 2020-03-18 09:00 | NUR ---
Assumed care from night RN, Danyelleece at 0700 today. Patient placed on a sedation vacation 0835 to 0855, please refer to vital sign entry. Patient would open eyes and look around but would not follow any commands. VSS except BP increased when awake. Tube feeding tiatrated for low residuals. Will continue to monitor.
[2020-03-18 11:34] LABS: HEMATOCRIT 35.7 % (42.0-52.0); HEMOGLOBIN 11.4 gm/dL (14.0-18.0); MCH 28.8 pg (26.0-34.0); MCHC 31.9 g/dL (28.0-37.0); MCV 90.1 fL (80.0-100.0); RBC 3.97 mil/uL (4.50-6.00); RDW 13.7 % (10.5-14.5); WBC 17.5 thou/uL (4.0-11.0)
[2020-03-18 11:48] LABS: INR 1.1; PROTIME 11.1 Seconds (9.3-11.4)
--- NOTE | 2020-03-18 13:15 | NUR ---
CARDIOLOGY IN AT 1200 AND INFORMED OF COOLER FOOT, NO ORDERS DR KO IN AT 1300 AND ALSO INFORMED OF LEFT FOOT BEING COOLER, ORDER NOTED. PATIENT IS ON HEPARIN DRIP FOR BILATERAL UPPER EXTERMITY CLOTS.
--- NOTE | 2020-03-18 19:00 | NUR ---
PATIENT IS SLOWLY PROGRESSING TOWARDS OUTCOME GOALS. WILL MOVE R ARM AND LEG WHEN SEDATION IS LIGHTENED, OPENS EYES SPONTANOUSLY. ARTERIAL DOPPLER OF LEFT LEG DONE AT BEDSIDE. TOLERATING TUBE FEEDING AND RATE INCREASED TO GOAL.
[2020-03-19] VITALS (24 sets, daily range): BP systolic 110–160; BP diastolic 49–75
--- NOTE | 2020-03-19 03:54 | NUR ---
ASSUMED PT CARE AT 1900. VSS. PT INTUBATED AND SEDATED. TRACKS WITH EYES BUT DOESNT FOLLOW COMMANDS. PT HAD AN UNEVENTFUL NIGHT. CHEST TUBE, SURGICAL DRESSING INTACT. PT IS STABLE, WILL CONTINUE TO MONITOR.
[2020-03-19 05:10] LABS: BE(vivo) 4.3 mmol/L (-2 to +3); HCO3 28.9 mmol/L (22.0-26.0); PCO2 43.2 mmHg (35.0-45.0); pH 7.443 (7.360-7.450); sO2 92.5 % (92.0-98.0)
[2020-03-19 06:09] LABS: HEMATOCRIT 34.9 % (42.0-52.0); HEMOGLOBIN 11.5 gm/dL (14.0-18.0); MCH 29.7 pg (26.0-34.0); MCV 89.9 fL (80.0-100.0); RBC 3.88 mil/uL (4.50-6.00); RDW 13.5 % (10.5-14.5); WBC 22.8 thou/uL (4.0-11.0)
[2020-03-19 06:19] LABS: CALCIUM 8.3 mg/dL (8.5-10.1); CREATININE 0.6 mg/dL (0.7-1.3); POTASSIUM 3.6 mmol/L (3.5-5.1)
--- NOTE | 2020-03-19 14:44 | NUR ---
chart review. unable to visit with annabella rt remains on vent, chest tube and has nutritional support. will cont following as needed for dc needs.
--- NOTE | 2020-03-19 15:33 | NUR ---
ASSUMED CARE OF THE PATIENT AT 0700. DR. GUEVARA AND JANEEN AT BEDSIDE AT [address] GUEVARA WONDERING IF THERE ARE ANY PLANS TO WEEN OR EXTUBATE HIM. I TOLD HIM I HADN'T HEARD OF ANY TODAY.
--- NOTE | 2020-03-19 17:58 | NUR ---
SPOKE TO SON AT 1100 AND JUST GAVE AN UPDATE BASED ON THE POC. SPOKE TO HER DAUGHTER IN ORDER TO FILL OUT THE MRI SHEET AT 1500. I ALSO GAVE HER AN UPDATE BASED ON POC AND SHE WOULD LIKE TO SEE IF IT'S POSSIBLE TO CALL AND SEE HER MOM. DR. RIVERA AT BEDSIDE AT 1659. NO NEW ORDERS GIVEN SPOKE TO DR. LANGSTON AT 1750 TO SEE IF HE WANTED TO START TUBE FEEDS BASED ON DIETARIES RECOMMENDATIONS AND HE SAID THAT WOULD BE FINE.
[2020-03-20] VITALS (24 sets, daily range): BP systolic 108–157; BP diastolic 49–85
[2020-03-20 04:57] LABS: HEMATOCRIT 34.6 % (42.0-52.0); HEMOGLOBIN 11.1 gm/dL (14.0-18.0); MCH 28.9 pg (26.0-34.0); MCHC 32.1 g/dL (28.0-37.0); MCV 90.1 fL (80.0-100.0); PLATELET COUNT 283 thou/uL (150-400); RBC 3.85 mil/uL (4.50-6.00); RDW 13.7 % (10.5-14.5); WBC 22.1 thou/uL (4.0-11.0)
[2020-03-20 05:03] LABS: BE(vivo) 4.6 mmol/L (-2 to +3); HCO3 28.8 mmol/L (22.0-26.0); PCO2 40.9 mmHg (35.0-45.0); PO2 61.1 mmHg (80.0-100.0); pH 7.465 (7.360-7.450); sO2 92.7 % (92.0-98.0)
--- NOTE | 2020-03-20 05:09 | NUR ---
Patient not progressing towards plan of care as evidenced by continued need for ventilator, no weaning trials at this time. Patient has large amount of inline sputum that is mainly brought up by coughing when sedation is paused. Patient has a strong gag/cough and does not tolerate lightened sedation as it alarms the vent and his oxygenation levels lower into the 90% range. When he is sedated, his respiratory rate and effort is not as labored and his coughing is not as strong, which appears to affect his breathing. Plan of care is to continue to monitor patient vital signs, assessments, and need for breathing support.
[2020-03-20 05:31] LABS: ALBUMIN 1.3 g/dL (3.4-5.0); CALCIUM 8.2 mg/dL (8.5-10.1); CREATININE 0.6 mg/dL (0.7-1.3); POTASSIUM 3.6 mmol/L (3.5-5.1); TOTAL BILIRUBIN 0.3 mg/dL (0.2-1.0); TOTAL PROTEIN 5.4 g/dL (6.4-8.2)
[2020-03-20 06:47] LABS: ABSOLUTE NEUTROPHILS 17.7 thou/uL (1.4-8.2); LARGE PLATELETS FEW; PLATELET ESTIMATE NORMAL
--- NOTE | 2020-03-20 15:42 | NUR ---
PT SEEN TODAY BY , PLAN IS TO DC THE AMIO GTT AND CONVERT TO PO, AND TO DECREASE PO DOSE IN COUPLE WEEKS. PT ALSO SEEN BY , NEUROLOGIST WOULD LIKE AN MRI DONE TO EVALUATE NEUROMUSCULAR FUNCTIONS OR LACK THEREOF. GAVE THE CLEARANCE FOR MRI WITH THE CHEST TUBE STILL IN PLACE, PER CHEST TUBE CAN COME OUT WHEN VENTILATOR IS NO LONGER A NECESSITY. ALSO WANTED TO DO A CERVICAL SPINE IMAGING DURING MRI. RADIOLOGY CALLED FOR CLARIFICATION. AT THIS CURRENT TIME. MRI IS NOT FEASIBLE DUE TO PATIENT CONDITION AND PT'S REQUIREMENT FOR DRIP MEDICATION (HEPARIN/PROPOFOL/AMIO), RN WILL COMMUNICATE WITH ONCOMING RN TO FACILIATE A GOAL TO WORK TOWADS WEANING PT OFF DRIPS TO GET DIAGNOSTICS DONE. 1509 - RN SPOKE WITH SON REGARDING PT'S CURRENT STATUS AND SPOKE ABOUT NOT BEING ABLE TO GO TO MRI WELL PT STILL NEEDING VENTILATION AND SEDATION GTT. PT ALSO STATED THAT HE WILL UPDATE PT'S FRIENDS ON HIS FATHER'S BEHALF. RN IS COMMUNICATING WITH RT AT THIS TIME TO FORMULATE A PLAN OF CPAP TRIAL, CURRENT HINDRANCES ARE INCREASES IN PT'S RR DURING PROPOFOL WEANING WELL SA THE RATE OF PROPOFOL INFUSION/PT'S TOLERANCE TO PROPOFOL. WILL CONTINUE TO ASSESS/INTERVENE UPDATE NEEDED
[2020-03-21] VITALS (20 sets, daily range): BP systolic 103–152; BP diastolic 45–91
[2020-03-21 05:19] LABS: BE(vivo) 3.2 mmol/L (-2 to +3); HCO3 26.7 mmol/L (22.0-26.0); PCO2 36.8 mmHg (35.0-45.0); PO2 62.3 mmHg (80.0-100.0); pH 7.478 (7.360-7.450); sO2 93.4 % (92.0-98.0)
[2020-03-21 06:26] LABS: HEMATOCRIT 31.5 % (42.0-52.0); HEMOGLOBIN 10.1 gm/dL (14.0-18.0); MCH 28.9 pg (26.0-34.0); MCHC 32.1 g/dL (28.0-37.0); MCV 89.9 fL (80.0-100.0); PLATELET COUNT 326 thou/uL (150-400); RDW 13.4 % (10.5-14.5); WBC 22.3 thou/uL (4.0-11.0)
--- NOTE | 2020-03-21 06:40 | NUR ---
PATIENT REMAINS SEDATED ON VENT. NO CHANGE IN VENT THIS SHIFT; TOLERATED. TOLERATED TUBE FEEDING WITH 20CC RESIDUALS. TUBE FEEDINGS AT GOAL. REMAINS WITH COPIOUS SECRETIONS. SUNCTIONED FREQUENTLY. BATH GIVEN. [id number]. REMAINS WITH MILD FEVER, TYNENOL GIVEN X1. DOES LIFT ARMS AND MOVES FINGERS AT TIMES. OPEN EYES SOME. CONTINUE TO WORK ON POC AND MONITOR CLOSELY.
[2020-03-21 06:49] LABS: ALBUMIN 1.3 g/dL (3.4-5.0); CREATININE 0.6 mg/dL (0.7-1.3); POTASSIUM 3.4 mmol/L (3.5-5.1); TOTAL BILIRUBIN 0.2 mg/dL (0.2-1.0); TOTAL PROTEIN 4.7 g/dL (6.4-8.2)
[2020-03-21 11:24] LABS: LARGE PLATELETS OCCASIONAL; METAMYELOCYTES 1 %
--- NOTE | 2020-03-21 12:14 | NUR ---
DIETARY CAME BY AT 0930 AND I ASKED ABOUT WATER FLUSHES. SHE SAID DUE TO THE EDEMA THAT WE NEEDED TO ASK DR. LANGSTON OR THE [employer] AT [facility] ABOUT IT.
[2020-03-22] VITALS (22 sets, daily range): BP systolic 90–166; BP diastolic 44–79
[2020-03-22 04:17] LABS: BE(vivo) 6.2 mmol/L (-2 to +3); HCO3 30.2 mmol/L (22.0-26.0); PCO2 41.3 mmHg (35.0-45.0); PO2 59.1 mmHg (80.0-100.0); pH 7.482 (7.360-7.450); sO2 92.3 % (92.0-98.0)
--- NOTE | 2020-03-22 04:59 | NUR ---
Assumed pt care at 1900. Pt sedated, opens eyes but unable to follow command. No sign of distress noted in pt. Vital signs stable. Fall precaution in place. Assessment completed and documented. Scheduled meds administered pt. No acute events overnight. Continue to monitor. No futher needs at this time.
[2020-03-22 06:45] LABS: HEMATOCRIT 31.3 % (42.0-52.0); MCH 28.7 pg (26.0-34.0); MCHC 31.9 g/dL (28.0-37.0); MCV 89.8 fL (80.0-100.0); PLATELET COUNT 357 thou/uL (150-400); RBC 3.48 mil/uL (4.50-6.00); RDW 13.8 % (10.5-14.5); WBC 17.6 thou/uL (4.0-11.0)
[2020-03-22 07:08] LABS: ALBUMIN 1.3 g/dL (3.4-5.0); CALCIUM 8.4 mg/dL (8.5-10.1); CREATININE 0.7 mg/dL (0.7-1.3); POTASSIUM 3.4 mmol/L (3.5-5.1); TOTAL BILIRUBIN 0.2 mg/dL (0.2-1.0); TOTAL PROTEIN 5.6 g/dL (6.4-8.2)
[2020-03-22 09:21] LABS: ABSOLUTE NEUTROPHILS 12.8 thou/uL (1.4-8.2); METAMYELOCYTES 2 %; MYELOCYTES 2 %
[2020-03-22 09:22] LABS: ANISOCYTOSIS SLIGHT
[2020-03-22 10:56] LABS: BE(vivo) 6.5 mmol/L (-2 to +3); HCO3 32.2 mmol/L (22.0-26.0); PCO2 49.8 mmHg (35.0-45.0); PO2 60.8 mmHg (80.0-100.0); pH 7.429 (7.360-7.450); sO2 91.6 % (92.0-98.0)
--- NOTE | 2020-03-22 17:53 | NUR ---
0800 CPAP TRIAL ORDERED PER IVIS. PT IN CPAP [phone]. RETURNED TO AC DUE TO HR 110'S AND SYSTOLIC BP IN 150'S. AFEBRILE. CONTINUING HEPARIN GTT. CHEST TUBE OUTPUT 70 ML THROUGHOUT SHIFT. PROGRESSING IN PLAN OF CARE
[2020-03-23] VITALS (29 sets, daily range): BP systolic 103–148; BP diastolic 41–78
--- NOTE | 2020-03-23 06:45 | NUR ---
ASSUMED PT CARE AT 1900. VSS. PT STILL ON PROPOFOL AND HEPARIN. HEPARIN ADJUSTED PER PT. PT STILL REQUIREING PROPOFOL AT 60MCG HE TRASHES AND BECOMES TACHPNEIC WHEN DOSE LESS THAN THAT. PT FOLLOWS COMMANDS WHEN SEDATION IS LIGHTENED, FACIAL GRIMACES TO PAIN AND HAS POSITIVE COUGH AND GAG. CHEST TUBE SITE INTACT. 150 OUT THIS SHIFT. WILL CONTINUE TO MONITOR.
--- NOTE | 2020-03-23 10:14 | NUR ---
ASSUMED CARE OF PATIENT AT 0700. DR. BARNES FROM NEURO AT BEDSIDE AT 1012. SHE INDICATED DUE TO THE SMOKING AND POOR LUNG HEALTH HE MAY BE DIFFICULT TO GET OFF THE VENTALATOR.
--- NOTE | 2020-03-23 15:44 | NUR ---
chart review. he cont to require vent, with nutritional support. cm visited with libia loza via home call, no concerns or needs voiced. " talk with staff often and going to be up for visit soon. thank you for calling"/libia loza. no anticipated dc over the weekend. will cont following as needed for dc needs.
[2020-03-24] VITALS (26 sets, daily range): BP systolic 91–144; BP diastolic 47–70
--- NOTE | 2020-03-24 01:22 | NUR ---
PATIENT HAD A BOWEL MOVEMENT, BATH GIVEN, TURNED SIDE TO SIDE. PATIENT HAS A PRODUCTIVE COUGH, HOWEVER, WHEN SUCTIONED, NOTHING COMES INLINE, SPUTUM ORTIZ. AFTER HIS BATH, HIS OXYGEN SATURATION DECREASED TO THE LOWEST AT 85%. NURSE PERFORMED 100% O2 SUCTION, WHICH ELEVATED HIS OXYGENATION LEVEL TO 95%. THIS HELPED FOR A BIT, THEN WHEN THE TIME FRAME WAS OVER, HIS OXYGENATION SATURATION DROPPED AGAIN, AT 40% FIO2. HME WAS CONGESTED, IT WAS CHANGED. SUCTION WAS PROVIDED AGAIN. NURSE TALKED WITH RT AND FIO2 WAS INCREASED TO 75%. AT THIS TIME, HIS OXYGENATION SATURATION IS 89%. NURSE TO TURN HIM BACK TO HIS BACK TO SEE IF THIS HELPS INCREASE HIS OXYGEN SATRUATION.
--- NOTE | 2020-03-24 03:35 | NUR ---
Patient not progressing towards plan of care as evidenced by when he is turned, he desaturates and does not tolerate it. He is able to communicate when he is in pain and nod yes/no. Chest tube is in place as documented. Plan is to wean off ventilator as tolerated and directed by physician.
[2020-03-24 04:48] LABS: HEMATOCRIT 31.6 % (42.0-52.0); MCH 28.5 pg (26.0-34.0); MCHC 31.5 g/dL (28.0-37.0); MCV 90.2 fL (80.0-100.0); RBC 3.5 mil/uL (4.50-6.00); RDW 13.9 % (10.5-14.5); WBC 20.8 thou/uL (4.0-11.0)
[2020-03-24 07:33] LABS: CALCIUM 8.9 mg/dL (8.5-10.1); CREATININE 0.6 mg/dL (0.7-1.3); POTASSIUM 3.6 mmol/L (3.5-5.1)
[2020-03-24 12:31] LABS: BE(vivo) 5.3 mmol/L (-2 to +3); HCO3 31.7 mmol/L (22.0-26.0); PCO2 55.9 mmHg (35.0-45.0); PO2 79.2 mmHg (80.0-100.0); pH 7.372 (7.360-7.450); sO2 95.2 % (92.0-98.0)
--- NOTE | 2020-03-24 12:43 | O ---
[facility] [place] [address] OPERATIVE REPORT Name: SHAN PETERSEN Room #: 251-P [facility] IN M.R.#: [id number] Admission: 03/09/20 Attend Phys: Ankush Mandujano MD Discharge: Date of : 56 Report #: [id number] THIS REPORT FOR: cc: Gary Wade,Gary Fraser,Ankush Villalobos MD ~ CC: Gary Mandujano DATE OF SERVICE: 03/23/2020 PREOPERATIVE DIAGNOSIS: Pulmonary dysfunction (status post right lower pulmonary lobectomy). POSTOPERATIVE DIAGNOSIS: Pulmonary dysfunction (status post right lower pulmonary lobectomy). PROCEDURE: Flexible bronchoscopy. SURGEON: Ankush Mandujano MD ANESTHESIA: IV sedation. INDICATIONS: The patient is a 60-year-old who approximately 10 days previously had a right lower pulmonary lobectomy. The patient had a satisfactory early postoperative course, but he had excessive secretions as well as toxic metabolic encephalopathy, requiring intubation. The patient has had a slow postoperative course and has failed extubation once for secretion problems. He is being treated for hospital-acquired pneumonia, but the essence of the problem appears to be problems with secretions. FINDINGS AND TECHNIQUE: After satisfactory propofol level was established, flexible diagnostic and therapeutic bronchoscopy was performed. The distal trachea and the bronchi were full of somewhat inspissated white secretions. No purulent secretions were encountered. Tedious suctioning was performed so that we could clear all of the subsegments, the bronchial stump and the right lower lobe was found to be well healed and the middle lobe was clearly open without evidence of torsion. Secretions were present in both the dependent portions of the right side as well as the left side. When all of the secretions had been cleared satisfactorily, the original [facility] [address] [place] [address] OPERATIVE REPORT Name: SHAN PETERSEN Room #: 251-P [facility] IN .R.#: [id number] Admission: 03/09/20 Attend Phys: Ankush Mandujano MD Discharge: Date of : 56 Report #: [id number] propofol regimen was reinstituted. The patient tolerated all of these well without drop in blood pressure or oxygen saturation. <ELECTRONICALLY SIGNED> By: Ankush Mandujano MD 03/24/20 1243 1016 1344 Ankush Mandujano MD /nt
--- NOTE | 2020-03-24 18:28 | NUR ---
[address] LANGSTON WHEN ROUNDING ABOUT STARTING PRECEDEX AND WEENING PROPOFAL. PLAN IS TO EXTUBATE TOMOROW PER IVIS. PT ON CPAP MODE FROM [phone]. PRECEDEX INTIATED AT 1500. PT AFEBRILE W/GOOD OUTPUT.
[2020-03-25] VITALS (25 sets, daily range): BP systolic 94–170; BP diastolic 43–85
[2020-03-25 10:33] LABS: BE(vivo) 5.8 mmol/L (-2 to +3); HCO3 31.8 mmol/L (22.0-26.0); PCO2 52.1 mmHg (35.0-45.0); PO2 70.8 mmHg (80.0-100.0); pH 7.404 (7.360-7.450); sO2 94.1 % (92.0-98.0)
--- NOTE | 2020-03-25 10:54 | NUR ---
ASSUMED CARE OF PATIENT AT 0700. DR. LANGSTON AT BEDSIDE AT 0900 AND WANTS TO TRY TO EXTUBATE HIM TODAY. SPOKE TO DR. LANGSTON AT 1051 AFTER CPAP TRIAL TO TELL HIM THE PT ABG'S. HE ASKED ME TO STOP THE PRECEDEX AND NOTIFY HIM WHEN PATIENT IS AWAKE AND INTERACTIVE AND HE WANTS TO EXTUBATE HIM AT THAT TIME.
[2020-03-25 17:56] LABS: BE(vivo) 5.8 mmol/L (-2 to +3); HCO3 37.8 mmol/L (22.0-26.0); sO2 96.8 % (92.0-98.0)
[2020-03-25 17:57] LABS: PCO2 105.6 mmHg (35.0-45.0); pH 7.172 (7.360-7.450)
[2020-03-25 19:52] LABS: BE(vivo) 4.4 mmol/L (-2 to +3); HCO3 31.4 mmol/L (22.0-26.0); PCO2 58.2 mmHg (35.0-45.0); sO2 86.6 % (92.0-98.0)
[2020-03-25 19:53] LABS: PO2 55.2 mmHg (80.0-100.0)
[2020-03-25 21:37] LABS: BE(vivo) 6.2 mmol/L (-2 to +3); HCO3 31.2 mmol/L (22.0-26.0); PCO2 46.6 mmHg (35.0-45.0); PO2 60.8 mmHg (80.0-100.0); pH 7.443 (7.360-7.450)
[2020-03-26] VITALS (58 sets, daily range): BP systolic 106–175; BP diastolic 53–90
[2020-03-26 04:41] LABS: HCO3 29.5 mmol/L (22.0-26.0); PCO2 38.4 mmHg (35.0-45.0); PO2 171.3 mmHg (80.0-100.0); pH 7.503 (7.360-7.450); sO2 99.3 % (92.0-98.0)
--- NOTE | 2020-03-26 05:19 | NUR ---
ASSUMED PT CARE AT 1900. PT WAS JUST INTUBATED 10 MINUTES PRIOR TO ASSUMPTION OF CARE, SATS 84% SO FIO2 TURNED UP TO 100%, ABGS GOTTEN, DR LANGSTON NOTIFIED; VENT SETTINGS ADUSTED THOUGH THE NOC PRN. PT NOW DOWN TO FIO2 OF 50% WITH PEEP OF 12. PT FOLOWS COMMANDS. AWAKENS WITH EASE ON PROPOFOL FOR VENT MNGT. PT IS STABLE NOW, ABGS BETTER THIS AM. U/O.1500 AFTER ONTIME DOSE OF LASIX. CHEST TUBE INTACT. WILL CONTINUE TO CLOSELY MONITOR PT.
[2020-03-26 06:17] LABS: HEMATOCRIT 29.7 % (42.0-52.0); HEMOGLOBIN 9.7 gm/dL (14.0-18.0); MCH 28.9 pg (26.0-34.0); MCHC 32.5 g/dL (28.0-37.0); RBC 3.34 mil/uL (4.50-6.00); RDW 14.1 % (10.5-14.5); WBC 21.8 thou/uL (4.0-11.0)
[2020-03-26 06:35] LABS: ALBUMIN 1.8 g/dL (3.4-5.0); CREATININE 0.7 mg/dL (0.7-1.3); POTASSIUM 4.3 mmol/L (3.5-5.1); TOTAL BILIRUBIN 0.2 mg/dL (0.2-1.0); TOTAL PROTEIN 6.5 g/dL (6.4-8.2)
--- NOTE | 2020-03-26 11:06 | NUR ---
Nutrition: REC restart tube feeds. Suggest 5 cartons Vital HP daily via gravity drip while pt with high propofol demands.
--- NOTE | 2020-03-26 16:33 | NUR ---
chart review. noted he was extubated over the weekend and requested to be intubated again. has require bronch as well. will cont following as needed for dc needs. bedside nurse has provide updates to libia loza.
--- NOTE | 2020-03-26 17:13 | NUR ---
1300 DR GUEVARA AT BEDSIDE FOR BRONCHOSCOPY. SON CALLED FOR CONSET AND UPDATED ON PT STATUS. 1600 SON AT BEDSIDE INQUIRING ABOUT PT STATUS. ASKING WHAT COULD BE CAUSE OF THE PT TENATIOUS SECRETIONS. INFORMED HIM THAT MAY BE A BETTER QUESTION FOR PULMONOLOGY BUT I WOULD INQUIRE. 1645 DR RIVERA AT BEDSIDE INFORMED PT ABOUT CURRENT PLAN OF CARE FROM ID STANDPOINT WELL POSSIBILITY OF TRACH.
--- NOTE | 2020-03-26 19:25 | NUR ---
Patient not progressing towards plan of care as evidenced by continued need for intubation and assistance with breathing, continued need for chest tube, and tachypnic when slightly awake. He is able to nod yes/no to pain, however he only intermittently follows commands. Heparin gtt was off for proceedure, then resumed when physician expressed to resume it. Tube feeding initated tonight per Dr. Galeana order. Plan of care is to continue to monitor patient vital signs, assessments, and need for sedation with ventilator.
[2020-03-27] VITALS (19 sets, daily range): BP systolic 104–151; BP diastolic 54–92
[2020-03-27 04:54] LABS: HEMATOCRIT 28.1 % (42.0-52.0); HEMOGLOBIN 8.9 gm/dL (14.0-18.0); MCH 28.4 pg (26.0-34.0); MCHC 31.8 g/dL (28.0-37.0); MCV 89.4 fL (80.0-100.0); RBC 3.14 mil/uL (4.50-6.00); RDW 14.4 % (10.5-14.5); WBC 20.1 thou/uL (4.0-11.0)
[2020-03-27 05:34] LABS: CREATININE 0.7 mg/dL (0.7-1.3); POTASSIUM 4.3 mmol/L (3.5-5.1)
--- NOTE | 2020-03-27 19:04 | NUR ---
ASSESSMENTS AND INTERVENTIONS DOCCUMENTED. RN ASKING DR. GUEVARA ABOUT CHEST TUBE REMOVAL DUE TO POTENTIAL FOR INFECTION. DR. GUEVARA STATING CHEST TUBE DAVID BE REMOVED ONCE PATIENT IS EXTUBATED. PATIENT RESTING THROUGH OUT SHIFT. URINE OUTPUT LOW, RN BLADDER SCANNING PATIENT 600 IN, RN FLUSHING NO OUTPUT. LOPEZ CHANGED DUE TO SEDIMENT. URINE OUTPUT IMPROVING. SON AT BEDSIDE AROUND 1645, RN CALLING DR. WICK FOR SON. DR. WICK SPEAKING TO SON ABOUT POC AND NEXT STEPS. PATIENT NOT PROGRESSING TOWARDS GOALS AT THIS MARY EVIDENCE BY REMIANING INTUBATED AT THIS TIME.
[2020-03-28] VITALS (19 sets, daily range): BP systolic 98–174; BP diastolic 53–87
[2020-03-28 04:56] LABS: HEMATOCRIT 27.8 % (42.0-52.0); HEMOGLOBIN 8.8 gm/dL (14.0-18.0); MCH 28.6 pg (26.0-34.0); MCHC 31.8 g/dL (28.0-37.0); RBC 3.09 mil/uL (4.50-6.00); RDW 13.9 % (10.5-14.5); WBC 13.6 thou/uL (4.0-11.0)
[2020-03-28 05:12] LABS: CALCIUM 8.8 mg/dL (8.5-10.1); CREATININE 0.5 mg/dL (0.7-1.3); POTASSIUM 4.2 mmol/L (3.5-5.1)
--- NOTE | 2020-03-28 10:22 | NUR ---
0700-ASSUMED CARE OF PT.--VW 0800- & JNAEENCV PA,IN.--VW
[2020-03-29] VITALS (17 sets, daily range): BP systolic 114–156; BP diastolic 51–99
[2020-03-29 05:48] LABS: HEMATOCRIT 29.6 % (42.0-52.0); HEMOGLOBIN 9.6 gm/dL (14.0-18.0); MCH 29.2 pg (26.0-34.0); MCHC 32.5 g/dL (28.0-37.0); RBC 3.29 mil/uL (4.50-6.00); RDW 13.6 % (10.5-14.5); WBC 14.6 thou/uL (4.0-11.0)
[2020-03-29 06:05] LABS: CALCIUM 8.6 mg/dL (8.5-10.1); CREATININE 0.5 mg/dL (0.7-1.3); POTASSIUM 3.7 mmol/L (3.5-5.1)
--- NOTE | 2020-03-29 14:02 | NUR ---
ASSESSMENTS AND INTERVENTIONS DOCCUMENTED. SON CALLING AROUND 1403. SON ASKING ABOUT TRACH AND PEG PLANS. RN UPDATING HIM ABOUT POC.
--- NOTE | 2020-03-29 14:37 | NUR ---
assumed care of pt.--vw
[2020-03-30] VITALS (17 sets, daily range): BP systolic 109–142; BP diastolic 51–71
--- NOTE | 2020-03-30 05:04 | NUR ---
ASSUMED PT AT 1900. VSS. PT ON PROPOFOL AND HEPARIN GTT. SEDATION VACATION FOR 10 MINS THIS AM, PT FOLLOWS COMMANDS; WILL SQUEEZ RN HANDS AND WIGGLE TOES, TRACKS WITH EYES, HAS POSITIVE COUGH AND GAG. BATH AND BM THIS SHIFT, TOTAL U/O OF 825ML THIS SHIFT. CHEST TUBE INTACT; 80ML OUT THIS SHIFT. PT IS STABLE, WILL CONTINUE TO GLCBF1P PER POC.
[2020-03-30 06:44] LABS: HEMOGLOBIN 10.2 gm/dL (14.0-18.0); MCH 28.3 pg (26.0-34.0); MCHC 31.8 g/dL (28.0-37.0); RBC 3.6 mil/uL (4.50-6.00); RDW 13.9 % (10.5-14.5); WBC 17.4 thou/uL (4.0-11.0)
[2020-03-30 07:04] LABS: CALCIUM 8.9 mg/dL (8.5-10.1); CREATININE 0.6 mg/dL (0.7-1.3); POTASSIUM 3.4 mmol/L (3.5-5.1)
--- NOTE | 2020-03-30 07:50 | NUR ---
ASSUMED CARE OF PATIENT AT 0700 DR. CHEN AT BEDSIDE AT 0747
--- NOTE | 2020-03-30 09:53 | NUR ---
ON-GOING ASSESSMENT: CM REVIEWED CHART. PT REMAINS ON THE VENT SEDATED. PT REMAINS ON HEP GTT, IV ANBX, AND IV STEROIDS. CM SPOKE WTIH DR. MCDONOUGH WHO REPORTS PLANS ARE FOR LIKELY TRACH/PEG NEXT WEEK. CM WILL CONTINUE TO FOLLOW TO ASSIST NEEDED.
[2020-03-30 10:45] LABS: MAGNESIUM 2.1 mg/dL (1.8-2.4)
[2020-03-31] VITALS (22 sets, daily range): BP systolic 115–150; BP diastolic 60–86
[2020-03-31 05:15] LABS: HEMATOCRIT 32.9 % (42.0-52.0); HEMOGLOBIN 10.4 gm/dL (14.0-18.0); MCH 28.5 pg (26.0-34.0); MCHC 31.6 g/dL (28.0-37.0); MCV 90.4 fL (80.0-100.0); RBC 3.64 mil/uL (4.50-6.00); RDW 13.9 % (10.5-14.5); WBC 22.2 thou/uL (4.0-11.0)
[2020-03-31 05:25] LABS: CALCIUM 9.1 mg/dL (8.5-10.1); CREATININE 0.5 mg/dL (0.7-1.3); POTASSIUM 3.5 mmol/L (3.5-5.1)
--- NOTE | 2020-03-31 05:30 | NUR ---
REMAINS INTUBATED AND SEDATED WITH PROPOFOL 40 MCG HEPARIN GTT PER PROTOCAL. FOLLOWS NO COMMANDS WILL OPEN EYES TO NAME AND THEN QUICKLY CLOSE ORALLY SUCTIONED FOR A MOD AMT SECRETIONS 1200 CC UO THIS SHIFT. SKIN INTACT. KAYLEE VITAL HP TF AT 60 CC/HR 30 CC CHEST TUBE DRAINAGE. BATHED. PLAN IS FOR TRACH AND PEG NEXT WEEK WILL CONT TO MONITOR.
--- NOTE | 2020-03-31 11:57 | O ---
[facility] [place] [address] OPERATIVE REPORT Name: SHAN PETERSEN Room #: 251-P [facility] IN M.R.#: [id number] Admission: 03/09/20 Attend Phys: Ankush Mandujano MD Discharge: Date of : 56 Report #: [id number] THIS REPORT FOR: cc: Gary Wade David J. DO Forman, John M. MD ~ DATE OF SERVICE: 03/26/2020 PREOPERATIVE DIAGNOSIS: Whiteout, right lung. POSTOPERATIVE DIAGNOSIS: Whiteout, right lung. OPERATION: Flexible bronchoscopy. SURGEON: Ankush Mandujano MD ANESTHESIA: IV sedation. INDICATIONS: The patient is a 60-year-old who has had a right lower pulmonary lobectomy. The patient has had pulmonary dysfunction requiring prolonged intubation. The patient was extubated on Thursday, but developed more problems with secretions and required reintubation today (Thursday). The chest x-ray shows a whiteout on the right side. FINDINGS AND TECHNIQUE: After IV sedation was established, the procedure was performed. Flexible bronchoscope was used to aspirate inspissated secretions; largely this was from the trachea on the right side, although there were some secretions on the left side. No endobronchial lesions were noted and the suture line in the lower lobe on the right side appeared secure. The middle lobe was patent and not torsed at least as it appears through the bronchoscope. It was a tedious procedure that required multiple placement and withdrawal of the bronchoscope to clear the inspissated secretions from both the patient and the scope. Nevertheless, we were able to accomplish this and at the end of the procedure, had good breath sounds bilaterally. No bleeding was incurred. The patient tolerated the procedure well and was returned to the regular sedation and ventilation regimen. Blood pressure and oxygen saturation were monitored throughout the case without and neither one showed any problem. <ELECTRONICALLY SIGNED> By: Ankush Mandujano MD 03/31/20 1157 1227 1247 Ankush Mandujano MD /nt
--- NOTE | 2020-03-31 18:12 | NUR ---
PT REMAINS SEDATED WITH PROPOFOL TODAY. SEDATION VACATION DONE BUT PT UNABLE TO TOLERATE. RR INCREASED AND FREQUENT COUGHING/GAGGING WHEN PROPOFOL OFF. TOLERATING TUBE FEEDING WELL WITH NO RESIDUALS. WILL CONTINUE TO MONITOR PATIENT.
[2020-04-01] VITALS (23 sets, daily range): BP systolic 108–156; BP diastolic 47–84
--- NOTE | 2020-04-01 03:07 | NUR ---
ASSUMED CARE AT 1900. 20 MINUTE SEDATION VACATION, PT ALERT, RESPONDED TO COMMAND TO SQUEEZE FINGERS AND WIGGLE TOES, PUPILS BRISKLY REACTIVE. RESUMED PROPOFOL DRIP. PASSIVE ROM COMPLETED. MEDIUM DARK GREEN STOOL; PT MORE RESTLESS AFTE TURN, INCREASED PROP GTT TO 50 THEN AFTER ABOUT 30 MINUTES DECREASED TO 45. RESTRAINTS IN PLACE, RELEASED Q2H PER POLICY. 0245-SPOKE TO EDGAR AYALA TO RENEW RESTRAINT ORDER.
[2020-04-02] VITALS (23 sets, daily range): BP systolic 97–162; BP diastolic 49–79
[2020-04-02 05:35] LABS: HEMATOCRIT 29.9 % (42.0-52.0); HEMOGLOBIN 9.8 gm/dL (14.0-18.0); MCH 29.6 pg (26.0-34.0); MCV 89.7 fL (80.0-100.0); RBC 3.33 mil/uL (4.50-6.00); RDW 13.9 % (10.5-14.5); WBC 19.8 thou/uL (4.0-11.0)
--- NOTE | 2020-04-02 05:40 | NUR ---
ASSUMED PT CARE AT 1900. VSS, PT ON PROPOFOL AND LIGHTLY SEDATED. PT OPENS EYES AND TRACKS WHILE CARE TEAM IS IN THE ROOM. PT NODS APPROPRIATELY AND FOLLOWS COMMANDS. PT IS STABLE, HAD AN UNEVENTFUL NOC, WILL CONTINUE TO MONITOR PER POC.
[2020-04-02 06:01] LABS: CREATININE 0.5 mg/dL (0.7-1.3); POTASSIUM 3.8 mmol/L (3.5-5.1)
--- NOTE | 2020-04-02 12:42 | NUR ---
0730-ASSUMED CARE OF PT. IN.--VW 0930-PROPOFOL AT 20MCG/KG/MIN p SEDATION VACATION.--VW 1230-PT W INCREASING RESTLESSNESS.VERY PURPOSEFUL, TRYING TO REACH ETT.ANGRY LOOKING,WOULD NOT SETTLE DOWN.PROPOFOL HAD TO BE INC'D FOR SAFETY OF TUBES & LINES.NOT FOLOWING COMMANDS.SPOKE W SON JANEEN, UPDATED.CONSENT FOR SURGERY OBTAINED.WILL ASK PHYSICIANS (SHARONDA & MANUEL) CALL & TOUCH BASE W SON.--VW
--- NOTE | 2020-04-02 13:56 | NUR ---
chart review. bedside has already spoken with libia loza. cm unable to visit with annabella rt remain on vent. annabella is on duc for trach and peg tomorrow with dr anaya. will cont following as needed for dc needs.
[2020-04-03] VITALS (26 sets, daily range): BP systolic 122–179; BP diastolic 50–80
--- NOTE | 2020-04-03 04:44 | NUR ---
ASSUMED CARE OF PATIENT AT 1900. MODERATE SEDATION. TURNED OF FOR SEDATION VACATION. AFTER 20 MINUTES, ABLE TO OPEN EYES AND SLOWLY BLINK EYES. SLIGHT SQUEEZE TO RIGHT HAND, NOT ABLE TO FOLLOW OTHER COMMANDS. TUBE FEED OFF AT MIDNIGHT, HEPARIN TO BE OFF AT 0500 FOR PLANNED TRACH/PEG.
--- NOTE | 2020-04-03 12:26 | NUR ---
AWAITING FOR SURGICAL TEAM AT THIS TIME, SEEN BY / THIS MORNING. PT IS AWAITING FOR SURGICAL TEAM AT THIS TIME. RN AWAITING CALL. NO SIGNFICANT CHANGES. TUBE FEEDING/HEPARIN GTT OFF WHEN RN PRESUMED CARE FOR PT PER 'S ORDERS. NO INSULIN GIVEN. WILL UPDATE WHEN PT IS TAKEN OFF THE UNIT FOR SURGERY
[2020-04-03 21:55] LABS: URINE BILIRUBIN NEGATIVE (Negative); URINE BLOOD NEGATIVE (Negative); URINE CLARITY CLEAR; URINE COLOR YELLOW; URINE GLUCOSE-RANDOM* NEGATIVE (Negative); URINE KETONES NEGATIVE (Negative); URINE LEUKOCYTES-REFLEX NEGATIVE (Negative); URINE NITRITE-REFLEX NEGATIVE (Negative); URINE PROTEIN (DIPSTICK) NEGATIVE (Negative); URINE UROBILINOGEN 0.2 E.U./dl (0.2-1.0)
[2020-04-04] VITALS (26 sets, daily range): BP systolic 79–170; BP diastolic 32–90
[2020-04-04 03:56] LABS: BE(vivo) 2.6 mmol/L (-2 to +3); HCO3 26.2 mmol/L (22.0-26.0); PCO2 36.6 mmHg (35.0-45.0); PO2 78.6 mmHg (80.0-100.0); pH 7.472 (7.360-7.450); sO2 96.4 % (92.0-98.0)
[2020-04-04 06:26] LABS: MCH 29.3 pg (26.0-34.0); MCHC 32.1 g/dL (28.0-37.0); PLATELET COUNT 479 thou/uL (150-400); RDW 14.5 % (10.5-14.5); WBC 14.9 thou/uL (4.0-11.0)
[2020-04-04 06:39] LABS: ALBUMIN 2.3 g/dL (3.4-5.0); CALCIUM 9.3 mg/dL (8.5-10.1); CREATININE 0.6 mg/dL (0.7-1.3); POTASSIUM 3.3 mmol/L (3.5-5.1); TOTAL BILIRUBIN 0.4 mg/dL (0.2-1.0); TOTAL PROTEIN 6.2 g/dL (6.4-8.2)
--- NOTE | 2020-04-04 07:13 | NUR ---
Pt was stable overnight, sinus gia with rates 48-54 when Propofol >50 mcg/kg/min, otherwise sinus rates 74-86. MAP remained > 65 throughout the shift. Pt tolerating vent well, good cough effort. Small to moderate amount of sanguinous drainage from new trache site, sputum thick and pink. PEG site clean, dry, drsg intact. Tube feeding started at 2315, initial rate 10 cc/hr, no residual at 0400 so rate increased to 20 cc/hr per physician orders. Pt had moderate amount of soft unformed greenish brown stool x1. On sedation vacation pt will open eyes, track speaker, moves upper extremities spontaneously but not to command, does not attempt to nod yes/no to questions. Right chest tube remains patent to -20 cmH2O without air leak or crepitous, minimal serous drainage.
[2020-04-04 10:47] LABS: ABSOLUTE NEUTROPHILS 10.4 thou/uL (1.4-8.2); METAMYELOCYTES 1 %; PLATELET ESTIMATE NORMAL
--- NOTE | 2020-04-04 12:09 | NUR ---
RECEIVED O.T. ORDERS THAT WERE WRITTEN PRIOR TO SURGERY: TRACHEOSTOMY AND PEG PLACEMENT. Pt WAS INTUBATED AND SEDATED FOLLOWING SURGERY. DUE TO CHANGE IN STATUS, NEW ORDERS NEEDED FOR O.T. EVALUATION. INFORMED RN.
--- NOTE | 2020-04-04 15:15 | NUR ---
Case reviewed and discussed with the care team. Pt had trach/peg placement yesterday. He remains sedated on the vent and tube feedings started. Chest tube injacob. [facility] referral for ongoing vent weaning and rehab. Will ask for OT to reeval. Will check with [employer] insurance regarding in network options for LTAC level of care. Will follow.
--- NOTE | 2020-04-04 17:59 | NUR ---
PT WAS SEEN TODAY BY , JOVANA VERNON, . PROPOFOL TITRATION HAS BEGUN PER NO LONGER INTUBATION AND TO PROGRESS TOWARDS TRANSFER/DC. PT STARTED AT 45 CURRENTLY AT 20. HEPARIN GTT HAS RESTARTED, PER NO BOLUS TO START AND APTT WAS DRAWN. PT APPEARED TO BE IN PAIN/DISTRESS THIS SHIFT, HR HAS BEEN INCREASING, WHEN FENTANY/LORAZEPAM IV IS ADMINSITERED, PT'S HR WOULD DECREASE TOWARDS BASELINE AT 80s OR 70s. PT IS PROGRESSING TOWARDS DISCHARGE R/T DEHISCENCE BEING INTERVENED, PROPOFOL DRIP BEING DECREASED, PT MAINTAINING SAT WITH TRACH USE, AND TRACH SITE HEALING. CONTINUING TO MONITOR WILL CONTINUE MONITOR AND UPDATE NECESSARY
[2020-04-05] VITALS (10 sets, daily range): BP systolic 126–209; BP diastolic 59–101
--- NOTE | 2020-04-05 07:23 | NUR ---
HEPARIN INCREASED BY 2.4, WAS RUNNING AT 17.39 NOW TO 19.04 UNITS. NEXT APTT IS 1300. CHANGES MADE AT 0700
--- NOTE | 2020-04-05 19:04 | NUR ---
PATIENT NOT PROGRESSING TOWARDS PLAN OF CARE. PATIENT CPAP TRIALX2 TODAY. PATIENT LASTED ABOUT OE HOUR EACH TIME PATIENT OFF PROPOFOL. PLANNING ON PRECDEX TO BE INITIATED. PATIENT HAVING INCREASING ANXIOUSNESS DURING THE COURSE OF THE DAY. AFTER CPAP TRIALS PATIENT HR AND SBP INCREASED. HYDRALAZINE GIVEN X2 FOR SBP >190. SPOKE WITH FAMILY ON THE PHONE TODAY FOR PATIENT UPDATE. TUBE FEEDINGS CONTINUE.
[2020-04-06] VITALS (24 sets, daily range): BP systolic 93–192; BP diastolic 48–82
--- NOTE | 2020-04-06 03:01 | NUR ---
ASSUMED PT CARE AT 1900. VSS, PT AWAKE BUT DROWSY. FOLLOWS COMMANDS; WILL SQUEEZ HANDS AND MOVE LEGS. PT ON VENT. TOLERATIN WELL PT WAS STARTED ON PRECEDEX AT 1. CHARGE NURSE KURT TOOK OVER PT CARE AT 0000. REPORT GIVEN TO DIRECTOR OF INDUSTRIAL RELATIONS AT 0255 THIS AM.
[2020-04-06 03:20] LABS: HEMATOCRIT 27.6 % (42.0-52.0); HEMOGLOBIN 8.8 gm/dL (14.0-18.0); MCH 28.8 pg (26.0-34.0); RBC 3.07 mil/uL (4.50-6.00); RDW 14.6 % (10.5-14.5); WBC 12.6 thou/uL (4.0-11.0)
[2020-04-06 03:21] LABS: PLATELET COUNT 363 thou/uL (150-400)
[2020-04-06 03:30] LABS: CALCIUM 8.9 mg/dL (8.5-10.1); CREATININE 0.6 mg/dL (0.7-1.3); TOTAL BILIRUBIN 0.5 mg/dL (0.2-1.0); TOTAL PROTEIN 5.5 g/dL (6.4-8.2)
[2020-04-06 04:09] LABS: HCO3 28.8 mmol/L (22.0-26.0); PCO2 39.4 mmHg (35.0-45.0); PO2 102.7 mmHg (80.0-100.0); pH 7.482 (7.360-7.450); sO2 98.1 % (92.0-98.0)
--- NOTE | 2020-04-06 10:23 | NUR ---
PT CURRENT HEPARIN WAS 21.79 UNIT/KG/HR. PTT 88.6 AT 0930. HEPARIN GTT REDUCED TO 19.79 UNIT/KG/HR. NEXT APTT IS 1530.
[2020-04-06 13:34] LABS: ABSOLUTE NEUTROPHILS 8.2 thou/uL (1.4-8.2)
[2020-04-06 13:35] LABS: METAMYELOCYTES 1 %
--- NOTE | 2020-04-06 14:28 | NUR ---
on-going assessment: CM REVIEWED CHART AND SPOKE WITH PTS SON JANEEN. PT REMAINS ON THE VENT. DISCUSSED POSSIBLE NEED FOR LTAC AT DISCHARGE BUT CM WORKING ON SEEING WHICH LTAC IS IN NETWORK WITH PTS INSURANCE VS IF PT WILL STAY HERE AT HOSPITAL FOR VENT WEANING. CM DISCUSSED WITH PTS SON AND WILL UPDATE.
--- NOTE | 2020-04-06 18:52 | NUR ---
ASSUMED PT CARE AT 0700. PT AWAKE AND RESPONSIVE THIS AM DURING 0800 ASSESSMENT. FOLLOWING COMMANDS AND NODDING HEAD TO QUESTIONS ALSO TRYING TO SPEAK. THIS FIRST BEGAN EARLY AM AROUND 0500. 1030 PT BEGAN CPAP TRIAL AND PLACED BACK ON AC AFTER BREATHING IN 30'S AND DECREASING IN SATS PER RT. 1100 PT AND OT AT BEDSIDE. RESPONDING TO QUESTIONS AND MOVING ALL 4 EXTREMITIES. STILL WEAK ONLY ABLE TO BEND AT [place] AND SLIGHTLY RIGID PER PT/OT.1200 DR JACKSON AT BEDSIDE INSPECTING TRACH SITE. DAILY DRESSING CHANGES NEEDED FOR TRACHEOSTOY PER MANUEL. 1345 SON AT BEDSIDE AND UPDATED REGARDING PROGRESS AND PLAN OF CARE. SON STATED HE WISHES TO SPEAK WITH CASE MANAGEMENT AND WOULD LIKE THEM TO CONTACT HIM AT THIS LISTED NUMBER. 1430 PRUVENA WOUND VAC IN PLACE ON PT R SHOULD SURGICAL SITE. PT IS PROGRESSING IN PLAN OF CARE. ADEQUATE OUTPUT. AFEBRILE. TOLERATING TUBE FEEDS W/MAX RESIDUAL 150 ML AT GOAL RATE 60 ML/HR.
[2020-04-07] VITALS (25 sets, daily range): BP systolic 101–136; BP diastolic 52–82
--- NOTE | 2020-04-07 02:00 | NUR ---
aPTT drawn at 0040 was 75.1, per protocol, rate decreased 2 units/kg/hr, heparin now infusing at 17.97 or 20.1 ml/hr. Weight also adjusted to 113 kg.
[2020-04-07 09:58] LABS: ABSOLUTE NEUTROPHILS 7.8 thou/uL (1.4-8.2); BASOPHILS 0.5 % (0.0-2.0); EOSINOPHILS 0.4 % (0.0-3.0); HEMATOCRIT 25.7 % (42.0-52.0); HEMOGLOBIN 8.3 gm/dL (14.0-18.0); LYMPHOCYTES 19.4 % (24.0-44.0); MCH 29.2 pg (26.0-34.0); MCHC 32.1 g/dL (28.0-37.0); MCV 90.9 fL (80.0-100.0); MONOCYTES 9.2 % (1.0-8.0); PLATELET COUNT 322 thou/uL (150-400); POLYS 70.5 % (36.0-66.0); RBC 2.83 mil/uL (4.50-6.00); RDW 14.9 % (10.5-14.5); WBC 11.1 thou/uL (4.0-11.0)
[2020-04-07 10:45] LABS: CALCIUM 9.1 mg/dL (8.5-10.1); CREATININE 0.5 mg/dL (0.7-1.3); MAGNESIUM 1.7 mg/dL (1.8-2.4); POTASSIUM 3.5 mmol/L (3.5-5.1); TOTAL BILIRUBIN 0.4 mg/dL (0.2-1.0); TOTAL PROTEIN 5.5 g/dL (6.4-8.2)
--- NOTE | 2020-04-07 17:11 | NUR ---
appt at 0918 69.2 - no change to gtt. redraw at 1630 71.0 decreased gtt by 2 units/kg/hr
--- NOTE | 2020-04-07 17:48 | NUR ---
DR. BERG LOOKING FOR LAB RESULTS, SPOKE WITH LAB AND STATED THEY WILL NOT BE RESULTS UNTIL TWO WEEKS FROM COLLECTION DATE, WHICH WOULD BE 04/18/20.
--- NOTE | 2020-04-07 18:04 | NUR ---
PATIENT STABLE THROUGH OUT THE SHIFT, TITRATING DOWN ON PRECEDEX GTT. REMOVED RESTRAINTS. PATIENT CALM AND FOLLOWING COMMANDS. CPAP TRIAL FOR 4 HOURS TODAY, TOLERATED WELL.
[2020-04-08] VITALS (22 sets, daily range): BP systolic 61–144; BP diastolic 25–75
[2020-04-08 06:25] LABS: ABSOLUTE NEUTROPHILS 8.5 thou/uL (1.4-8.2); BASOPHILS 0.7 % (0.0-2.0); EOSINOPHILS 0.4 % (0.0-3.0); HEMATOCRIT 25.9 % (42.0-52.0); HEMOGLOBIN 8.4 gm/dL (14.0-18.0); LYMPHOCYTES 19.6 % (24.0-44.0); MCH 29.3 pg (26.0-34.0); MCHC 32.5 g/dL (28.0-37.0); MCV 90.3 fL (80.0-100.0); MONOCYTES 9.2 % (1.0-8.0); PLATELET COUNT 320 thou/uL (150-400); POLYS 70.1 % (36.0-66.0); RBC 2.87 mil/uL (4.50-6.00); RDW 14.7 % (10.5-14.5); WBC 12.2 thou/uL (4.0-11.0)
--- NOTE | 2020-04-08 06:39 | NUR ---
Pt remains alert, oriented to person, place, somewhat to situation. Pt intially kept thinking he could get up to use restroom or get a drink, but now seems to accept that he is on vent and not able to get out of bed at this time. Has had periods of anxiety and restlessness; Precedex gtt titrated and Ativan given per tubee prn. Pt tolerating vent settings well, suctioning moderate amounts of thick hill-beige sputum approximately q 3-4 hours from trach and around trach. No signs of mucous plugging. Tolerating tube feeding well, no residuals or abdominal distention. Pt is having diarrhea, 100cc liquid brown stool in fecal management system. No changes in skin integrity.
[2020-04-08 06:46] LABS: MAGNESIUM 1.7 mg/dL (1.8-2.4); POTASSIUM 3.4 mmol/L (3.5-5.1)
[2020-04-08 07:03] LABS: CALCIUM 9.1 mg/dL (8.5-10.1); CREATININE 0.5 mg/dL (0.7-1.3); POTASSIUM 3.6 mmol/L (3.5-5.1)
--- NOTE | 2020-04-08 09:28 | NUR ---
0745- DR GUEVARA IN ROOM ROUNDING ON PT. NO NEW ORDERS RECEIVED. 0815- PT PLACED ON CPAP MODE AND PEEP DECREASED TO 5 BY RT.
--- NOTE | 2020-04-08 12:46 | NUR ---
RN CALLED AND SPOKE WITH PT'S SON JANEEN AND GAVE PT UPDATE. ALL QUESTIONS ANSWERED.
--- NOTE | 2020-04-08 18:10 | NUR ---
PT WAS STARTED ON CPAP TRIAL AT 0815 AND HAS REMAINED ON CPAP ENTIRE SHIFT. O2 SATS REMAINED 98-100%, ABG'S WERE DRAWN THIS AM AND RESULTS GIVEN TO DR. LANGSTON. PT IS PROGRESSING TOWARDS WEANING GOALS.
[2020-04-09] VITALS (24 sets, daily range): BP systolic 75–173; BP diastolic 40–136
--- NOTE | 2020-04-09 05:08 | NUR ---
ASSUMED PT CARE AT 1900. VSS, BP DROPS TO 40S WITH DEEP SLEEP. PT ON PRECEDEX AND HEPARIN DRIP. PT FOLLOWS COMMANDS. AROUND 10PM HE WAS GETTING MORE AGITTATED AND CONFUSED HE MENTIONED WANTING TO LEAVE. SO HE NEEDED MORE REASSURANCE, AND REORIENTING.. PT FINALLY SLEPT; HE RESTED WELL THROUGH THE NOC, HE IS STABLE, WILL CONTINUE TO MONITOR PER POC
[2020-04-09 08:51] LABS: PCO2 43.3 mmHg (35.0-45.0); PO2 84.5 mmHg (80.0-100.0); pH 7.443 (7.360-7.450)
[2020-04-09 08:52] LABS: BE(vivo) 4.4 mmol/L (-2 to +3); HCO3 28.9 mmol/L (22.0-26.0)
[2020-04-09 08:53] LABS: sO2 96.7 % (92.0-98.0)
--- NOTE | 2020-04-09 13:43 | NUR ---
AWAKE AND FOLLOWS COMMANDS, TITRATING PRECEDEX DOWN TOLERATED. VITALS STABLE. RIJ HD CATH IN PLACE. STARTED ON PUREED DIET PER SPEECH THERAPIST AND TOLERATING WELL. LOPEZ WITH ADEQUATE OUTPUT. WILL CONTINUE WITH POC.
--- NOTE | 2020-04-09 13:55 | NUR ---
ON THE VENT PER TRACH, VITALS STABLE. PLACED ON CPAP EARLIER TODAY BY R.T. TOLERATING TUBEFEEDING PER PEG TUBE. TITRATING PRECEDEX GTT TOLERATED. WOUND VAC AND CHEST TUBE DOCUMENTED. WILL CONTINUE WITH POC.
--- NOTE | 2020-04-09 16:12 | NUR ---
Case discussed with the care team. Pt is progressing slowly and now doing daily cpap trials for vent weaning. He is tolerating his peg tube feedings. Chest tube in place and draining. PT/OT working with pt. He is very weak but following commands. He is on a heprin and precedex gtt. DC needs and time frame are uncertain. Will follow.
[2020-04-10] VITALS (16 sets, daily range): BP systolic 107–160; BP diastolic 44–61
--- NOTE | 2020-04-10 11:38 | NUR ---
WOUND CARE F/U; F/U WAS ATTEMPTED TODAY. THE RN TODAY HAD ALREADY COMPLETED THE DRESSING CHANGE STATING THAT IT LOOKS THE SAME PREVIOUS ASSESSMENT. WE DISCUSSED THE PATIENTS NEEDS. THE RN STATED THE THE CARDIO THORASIC PA CAME AND CHANGED THE PRAVENA DRESSING ON THE RIDE SIDE OF THE BACK. WE ALSO DISCUSSED TURNING. RECOMMENDATIONS; 1-NO CHANGES AT THIS TIME. RN PRESENT
--- NOTE | 2020-04-10 18:37 | NUR ---
ON THE VENT PER TRACH, VITALS STABLE. PLACED ON CPAP EARLIER TODAY AND TOLERATED WELL. CHEST TUBE PLACED TO WATER SEAL BY JANEEN THIS AFTERNOON. TUBEFEEDING PER PEG, [employer] [facility] MANAGER CHANGED THE FORMULA TODAY AND ADDED WATER BOLUSES. PATIENT CONTINUES TO HAVE COPIOUS AMOUNTS OF SECRETIONS AROUND THE TRACH, SAMPLE SENT TO LAB FOR CULTURES. FLAVIA AND JESSICA DOCUMENTED. PATIENT'S SON CAME TO VISIT THIS EVENING. WILL CONTINUE WITH POC.
--- NOTE | 2020-04-10 18:41 | NUR ---
HEPARIN GTT DC'D THIS EVENING PER ORDER AND WILL BE STARTED ON LOVENOX TONIGHT.
[2020-04-11] VITALS (19 sets, daily range): BP systolic 125–194; BP diastolic 33–106
[2020-04-11 05:10] LABS: HEMATOCRIT 27.7 % (42.0-52.0); HEMOGLOBIN 8.9 gm/dL (14.0-18.0); MCH 29.1 pg (26.0-34.0); MCHC 31.9 g/dL (28.0-37.0); RBC 3.05 mil/uL (4.50-6.00); RDW 14.5 % (10.5-14.5); WBC 16.8 thou/uL (4.0-11.0)
[2020-04-11 05:12] LABS: CALCIUM 8.9 mg/dL (8.5-10.1); CREATININE 0.5 mg/dL (0.7-1.3)
--- NOTE | 2020-04-11 16:17 | NUR ---
ON THE VENT PER TRACH, VITALS STABLE. RESTLESS AND MORE CONFUSED THIS AFTERNOON AND STARTED PULLING GOWN AND CABLES OFF, TUGGING ON TRACH TUBING AND LOPEZ. REDIRECTED MULTIPLE TIMES AND ANTI ANXIETY PRN MEDS ADMINISTERED W/O SUCCESS. DR. MCDONOUGH NOTIFIED AND ORDERS RECEIVED FOR WRIST RESTRAINTS. DR. RIVERA RECONSULTED FOR POSITIVE SPUTUM CULTURES AND PATIENT STARTED ON ANTIBIOTICS. TOLERATING TUBEFEEDING PER PEG. WILL MONITOR CLOSELY.
[2020-04-12] VITALS (20 sets, daily range): BP systolic 108–163; BP diastolic 49–69
--- NOTE | 2020-04-12 06:44 | NUR ---
WOUND PICS UPDATED THIS SHIFT. COMPLETE BATH AND LINEN CHANGE. CT HAS LITTLE AMOUNT OF DRAINAGE. LARGE AMOUNT OF STOOL IN FMS; LEAKING AROUND TUBE; REPOSITIONED FMS; MALODOROUS OUTPUT; PASSING LARGE AMOUNT OF FLATUS IN TUBE. 11OO CC URINE IN LOPEZ OVERNIGHT. PT DOES NOT LIKE ORAL CARE. COUGHING WITH SUCTIONING. LARGE AMOUNT OF THICK YELLOW/GREEN SECRETIONS FROM TRACH SITE. DRESSING CHANGED NUMEROUS TIMES THROUGHOUT NIGHT. PT AGITATED AT TIMES; PRECEDEX GTT GIVEN THROUGHOUT NIGHT; DC'D AT 0600.
--- NOTE | 2020-04-12 07:22 | NUR ---
ASSUMMED CARE FROM THE NIGHT NURSE, MYLENE REYNOSO. PATIENT IS RESTING QUIETLY ON THE VENT WITH STABLE VS.
--- NOTE | 2020-04-12 08:45 | NUR ---
DR GUEVARA AND GEORGE KWONG IN TO EXAMINE RT THORACOTOMY WOUND. WOUND DEBRIDED BY MAUREEN AND WOUND VAC REINFORCED AND PATENT.
[2020-04-12 11:44] LABS: BE(vivo) 3.6 mmol/L (-2 to +3); HCO3 27.7 mmol/L (22.0-26.0); PCO2 39.8 mmHg (35.0-45.0); PO2 96.9 mmHg (80.0-100.0); sO2 97.7 % (92.0-98.0)
--- NOTE | 2020-04-12 16:00 | NUR ---
SPOKE WITH PATIENT'S SON, MAUREEN AND UPDATED HIM ON HIS FATHER CONDITION AND POC.
--- NOTE | 2020-04-12 19:00 | NUR ---
PATIENT IS PROGRESSING TOWARDS OUTCOME GOALS EVIEDENT BY REMAINING ON CPAP SINCE THIS AM WITH O2 SAT IN THE UPPER 90'S AND VSS. MONITOR SHOWING NSR. TOLERATING TUBE FEEDINGS WITH SMALL RESIDUALS. CONTINUES TO HAVE COPIOUS AMT OF YELLOW SECRETIONS AROUND THE TRACH, SWEET ODOR, AND REDNESS NOTED. AFEBRILE.
[2020-04-13] VITALS (14 sets, daily range): BP systolic 131–168; BP diastolic 57–76
--- NOTE | 2020-04-13 06:00 | NUR ---
REMAINS TRACHED AND VENTED. LARGE AMT OF THICK SECRETIONS FROM AROND TRACH MUCH MORE AWAKE THIS AM. RESTRAINTS REMOVED EARLIER. 1500 CC UO. ZERO CHEST TUBE AND ZERO FROM FMS. HAS A SMALL AMT BROWN LIQUID STOOL BATHED. PT IS AWAITING AN LTAC BED. WHEN AVAILABLE. PROGRESSING TOWARD GOALS.
[2020-04-13 06:03] LABS: CREATININE 0.5 mg/dL (0.7-1.3); POTASSIUM 3.6 mmol/L (3.5-5.1)
[2020-04-14] VITALS (17 sets, daily range): BP systolic 123–173; BP diastolic 57–82
--- NOTE | 2020-04-14 06:00 | NUR ---
REMAINS TRACHED AND ON CPAP FOR PAST 2 DAYS KAYLEE WELL. FREQ TRACH CARE GIVEN AREA IS REDDENED. SUTURES REMAIN IN PLACE. LARGE AMT THICK YELLOWISH FOUL SMELLING TRACH SECRETIONS. JEVITY AT 65 CC/HR VIA PEG WITH 300 CC WATER FLUSHES Q 6 HRS. LARGE AMT OF SOFT BROWN STOOL FROM AROUND FMS. RIGHT LATERAL CHEST TUBE WITH 70 CC YELLOWISH DRG AND 1300 CC UO THIS SHIFT. BATHED. WILL CONT TO MONITOR. ATIVAN AND FENTANYL PRN RESTLESSNESS AND COMFORT PROGRESSING TOWARD GOALS. AWAITING LTAC PLACEMENT.
--- NOTE | 2020-04-14 10:53 | NUR ---
0930-O.TElizabeth IN,WORKING W PT.--VW 1030- IN.--VW
[2020-04-14 12:26] LABS: ABSOLUTE NEUTROPHILS 8.1 thou/uL (1.4-8.2); BASOPHILS 0.5 % (0.0-2.0); HEMATOCRIT 30.6 % (42.0-52.0); HEMOGLOBIN 9.9 gm/dL (14.0-18.0); LYMPHOCYTES 14.1 % (24.0-44.0); MCH 29.5 pg (26.0-34.0); MCHC 32.3 g/dL (28.0-37.0); MCV 91.4 fL (80.0-100.0); MONOCYTES 10.1 % (1.0-8.0); PLATELET COUNT 268 thou/uL (150-400); POLYS 72.3 % (36.0-66.0); RBC 3.35 mil/uL (4.50-6.00); RDW 15.4 % (10.5-14.5); WBC 11.3 thou/uL (4.0-11.0)
[2020-04-14 12:33] LABS: ALBUMIN 2.3 g/dL (3.4-5.0); CREATININE 0.5 mg/dL (0.7-1.3); MAGNESIUM 1.9 mg/dL (1.8-2.4); PHOSPHORUS 3.4 mg/dL (2.6-4.7); POTASSIUM 3.7 mmol/L (3.5-5.1); TOTAL BILIRUBIN 0.3 mg/dL (0.2-1.0); TOTAL PROTEIN 5.8 g/dL (6.4-8.2)
[2020-04-15] VITALS (23 sets, daily range): BP systolic 118–163; BP diastolic 60–79
--- NOTE | 2020-04-15 07:34 | NUR ---
Pt has remained stable off vent overnight. Initially on 30% per T-piece, but changed to trache mask around 0300. Pt has good cough effort, requires suctioning q 2-3 hours when awake. Sputum thick greenish-yellow, small to moderate amounts through and around trache. Trache care done several times during shift. No new areas of skin breakdown. Tolerating tube feedings and water boluses well, no residual. Diarrhea beginning to slow down, minimal stool this shift in FMS. Wound vac on right thoracotomy incision remains clean, dry, intact.
--- NOTE | 2020-04-15 19:29 | NUR ---
RECEIVED PT'S CARE AROUND 729; PT. ON BED; ALERT; SR ON THE MONITOR; DR. GUEVARA ROUNDING; UPDATED ABOUT PT. OFF OF VENTILATOR DURING THE NIGHT; CT TUBE D/C BY DR. GUEVARA; DURING AM ASSESSMENT PT. ALERT TO PERSON, PLACE, SITUATION; FORGETFUL; ST. "I AM GOING HOME TODAY"; REMAINED ABOUT THE IMPORTANCE OF STAYING AT THE HOSPITAL UNTIL D/C BY PHYSICIAN; NO ANSWER BACK; AM MEDICATIONS GIVEN; NO C/O PAIN; THROUGH THE DAY SUCTIONED COPIUS SECREATIONS; PHYSICIAN AWARE OF IT; TRACH AND PEG TUBE DRESSING CHANGED; BUTTOCKS DRESSING CHANGED; TURNED FROM SIDE TO SIDE; NO RESIDUAL THROUGH THE DAY; ASSESSMENT CHARGED; FOLLOWING POC; PASSED ON REPORT;
[2020-04-16] VITALS (23 sets, daily range): BP systolic 139–216; BP diastolic 50–97
--- NOTE | 2020-04-16 03:24 | NUR ---
ASSUMED PT CARE AT 1900. VSS. PT ALERT, AWAKE, FOLLWS COMMANDS AND ABLE TO MOUTH WORDS TO COMMUNICATE HIS NEEDS. PT HAS A TRACH MASK TO 15L 35% O2. FREQUENT SUCTION NEEDED PT HAS LOTS OF SECRETIONS AROUND HIS TRACH. PT RESTED WELL OVER NOC. PT IS STABLE NO ISSUES. WILL CONTINUE TO MONITOR PER POC
--- NOTE | 2020-04-16 12:28 | NUR ---
WOUND CARE F/U; THE PATIENTS LEFT BUTTOCKS WOUND HAS IMPROVED. NO S/S OF INFECTION. THE VAC DRESSING IS INTACT AND WNL. RECOMMENDATIONS; CONTINUE CURRENT TREATMENT. RN PRESENT
--- NOTE | 2020-04-16 14:56 | NUR ---
on-going assessment: CM REVIEWED CHART. PT IS S/P RIGHT LOWER PLUMONARY LOBECTOMY. PT IS CURRENTLY ON TRACH SHIELD 15L. PT HAS THORACOTOMY WOUND WITH PREVENA SEALED ON. [facility] CONSULT WAS PLACED FOR PATIENT. [facility] IS FOLLOWING BUT STATES AT THIS TIME PT IS NOT APPROPRIATE FOR 5N BUT THEY WILL CONTINUE TO MONITOR HIS PROGRESSION. DISCHAREG PLANNING CONSIDERING REHAB VS LTAC. CM SPOKE WITH PATIENTS HANNAH VERNON AND HE STATES A REFERRAL CAN BE SENT TO AN LTAC AND JUST WANTS TO KNOW OPTIONS. CM FAXED REFERRAL TO [facility]. SHE REPORTS FOR LTAC IF WOULD FOLLOW UNDER HIS BCBS PLAN AND THEY ARE NOT ACCEPTING ANY BCBS. CM WILL FOLLOW UP FOR MORE CLARIFICATION WELL LTAC IS AN OPTION OR NOT FOR THIS PATIENT.
--- NOTE | 2020-04-16 21:00 | NUR ---
ASSESSMENT CHARTED - MEDS PER JUN - MEDS GIVEN VIA PEG TUBE - WATER FLUSHES GIVEN Q 6 AND JEVITY RUNNING AT 65CC AN HOUR. PT TURNED AND WEDGES USED AND PATIENT WOULD SCOOT BACK ONTO BACK AND BOTTOM. COPIOUS AMOUNSTS OF SPUTUM VIA TRACH. TRACH CARE GIVEN MULTIPL TIMES. SEEN BY WOUND CARE THIS SHIFT - CARDIO PA CHECKED WOUND VAC TO ENSURE HEALING OCCURRING. PT WITH REHAB CONSULT - SEEN BY PHY AND OCC THERAPY THIS SHIFT. PT WITH KAYLEN BACA INSITU. ENTERED PATIENT ROOM AFTER CARING FOR ANOTHER PATIENT TO FIND PICC LINE LAYING OF THE FLOOR AND PEG TUBE PULLED OUT AND LAYING IN BED. PT AGITATED AT TIMES THROUGHOUT DAY BUT WOULD REDIRECT AND CALM DOWN - PATIENT AGGITATED AND WANTING TO GO HOME LEGS OVER THE SIDE RAIL. NEW IV STARTED PER IV TEAM - DR CHRISTINE CALLED AND MEDICATIONS REVIEWED AND CHANGED UNTIL TUBE CAN BE REPLACED- ALEJANDRO CALLED ( [facility]ONG) AND NOTIFIED THAT PATIENT HAD PULLED OUT PEG - HOLDOL ORDERED FOR PATIENT AND IV FLUIDS - PATIENT CAN BE RESTRINED IF NEED BE PER ORDER IF MEDICATIONS DO NOT ASSIST WITH CALMING PATIENT DOWN.
[2020-04-17] VITALS (21 sets, daily range): BP systolic 121–193; BP diastolic 57–141
--- NOTE | 2020-04-17 00:25 | NUR ---
CALLED RACHAEL AYALA NP AT 2220, TO REPORT, NO IV ACCESS, NO PEG TUBE, NO LOPEZ CATH. SHE ADVISED TO REPLACE URINARY CATHETR LONG NOT DIFFICULTY WITH REPLACEMENT. SHE ADVISED CALLING DR GUEVARA TO ASK HOW TO DEAL WITH REPLACING CENTRAL LINE IV ACCESS. NO ONE WAS BELL HOLE DIGGER FOR HIS SERVICE. THIS RN THEN CALLED DR LANGSTON AT 2226 TO GET ADVISE ON NEXT ACTION. CLONIDINE PATCH ORDERED FOR HTN WITH NO IV OR PEG TUBE ACCESS, DC WHEN OBTAINED. LOPEZ CATHETER REPLACED AT 1054. 2300 ONE PIV OBTAINED, IV BP MED WAS GIVEN.
[2020-04-17 04:54] LABS: BE(vivo) 8.5 mmol/L (-2 to +3); HCO3 32.8 mmol/L (22.0-26.0); PCO2 44.5 mmHg (35.0-45.0); pH 7.485 (7.360-7.450); sO2 97.3 % (92.0-98.0)
--- NOTE | 2020-04-17 16:34 | NUR ---
ON-GOING ASSESSMENT: TRACI REACHED OUT TO [facility] WHO REPORTS THEY MAY BE ABLE TO ACCEPT PT AT DISCHARGE PENDING INSURANCE AUTH. TRACI REACHED OUT TO THE PRE-AUTH LINE GIVEN BY [employer] YESTERDAY [phone] AND SPOKE WITH SONNY WHO STATES THAT WITH [employer] LTAC IS NOT A COVERED BENEFIT UNDER OUR THAT PLAN. SHE STATES THAT LTAC IS NOT A COVERED BENEFIT AND WOULD BE PRIVATE PAY. TRACI ASKED IF THEN IT WOULD BE COVERED UNDER BCBS AND SHE STATED NO IT IS NOT A COVERED BENEFIT. TRACI NOTIFIED UR RN AND CM DIRECTOR WELL JESUS TRIMBLE WHAT WAS TOLD THAT IT IS NOT A COVERED BENEFIT. JESUS TRIMBLE STATED THEY WERE TRYING TO VERIFY BENEFITS BUT UNCERTAIN AT THIS TIME. SHE STATES CURRENTLY THEY SEE THAT PATIENT HAS LTAC BENEFITS AND POTENTIAL OPTION FOR A BETTER REIMBURSEMENT RATE OR THE REGULAR BCBS COMMERICAL RATE. TRACI NOTIFIED CM DIRECTOR WE WILL NEED FURTHER CLARIFICATION.
--- NOTE | 2020-04-17 19:26 | NUR ---
ASSUMED CARE OF PT AT SHIFT CHANGE. ASSESSMENTS CHARTED. MEDS GIVEN PER JUN. PT ALERT TO SELF. TRACH IN PLACE, PT PRODUCING COPUIS AMTS OF SECRETIONS. NO C/O PAIN. PERIPHERAL IV IN PLACE, LOPEZ IN PLACE. PEG TUBE TO BE REPLACED TOMORROW MORNING. CONSENT SIGNED. PT IN SOFT WRIST RESTRAINSTS. REPORT GIVEN TO NOC NURSE.
[2020-04-18] VITALS (22 sets, daily range): BP systolic 124–185; BP diastolic 48–134
--- NOTE | 2020-04-18 07:35 | NUR ---
Pt has remained stable overnight. Good cough effort, able to clear secretions to top of trache. Secretion load decreased from last week. Suction required approximately q 4 hours, sputum thick yellowish-white. Pt remains in bilateral soft wrist restraints due to attempting to disconnect tracheostomy and baeza catheter. Urine output 2550 cc for this shift. Monitor remains sinus rhythm. Wound vac to right thoracotomy incision remains clean, dry and intact. No changes in skin integrity this shift.
--- NOTE | 2020-04-18 10:24 | NUR ---
PT TAKEN TO SURGEY TO HAVE PEG REPLACED.
--- NOTE | 2020-04-18 10:24 | NUR ---
PT AWAKE VENT TRACH. PT WILL FOLLOW VERBAL COMMANDS. BP ELEVATED OTHER VSS. IVF INFUSING PER ORDER. PLANS TO REPLACE PEG TUBE TODAY. SPOKE WITH PT SON TO GIVE VERBAL CONSENT ALONG WITH WILL CONTINUE TO MONITOR
[2020-04-19] VITALS (19 sets, daily range): BP systolic 113–176; BP diastolic 51–87
--- NOTE | 2020-04-19 14:18 | NUR ---
ALERT AND FOLLOWS COMMANDS. VITALS STABLE. ON TRACH MASK AT 35% AND TOLERATING WELL. PEG TUBE CLAMPED AT THIS TIME. NO DISTRESS NOTED AT THIS TIME. WORKING WITH PT AND OT. WILL CONTINUE WITH POC.
--- NOTE | 2020-04-19 16:06 | PATH ---
[facility] [address] [place] [address] PATHOLOGY RPT PROCEDURE Name: SHAN PETERSEN Room #: 251-P ADM IN .R.#: [id number] Admission: 03/09/20 Date of : 56 Discharge: Report #: [id number] Path Case #: [id number] Note [facility] Accession Number: [id number] TESTS RESULT FLAG UNITS REF RANGE LAB Clinician Provided Cytology Information No. of containers..01 Other (Miscellaneous) Source: 01 RT MAINSTEM BAL DIAGNOSIS: 02 RIGHT MAINSTEM BAL NEGATIVE FOR MALIGNANT EPITHELIAL CELLS. REACTIVE BRONCHIAL CELLS ARE PRESENT. PULMONARY MACROPHAGES (DUST CELLS) ARE PRESENT. THIS INTERPRETATION INCLUDES EVALUATION OF A CELL BLOCK. Pathologist ICD10: 02 R91.8 Signed out by: 02 Marilyn Bond MD, Pathologist NPI- [id number] Performed by: Sharan Kearney, Instructional Paraprofessional ([facility]) Gross description: 01 10ML, MERCADO, 1TP 1CB /LCS 04/18/2020 0602 Local FLAG LEGEND: L-Low Normal,H-High Normal,LL-Alert Low,HH-Alert High <-Panic Low,>-Panic High,A-Abnormal,AA-Critical Abnormal Performed at: [address] [place] [address] Kalin Brand MD, [address] [id number] Marilyn Bond MD, Specimen Comment: A courtesy copy of this report has been sent to [phone] Specimen Comment: Report sent to Performed at: [address], [place], [place] [id number] MD Kalin Brand MD Phone: [phone]
[2020-04-20] VITALS (16 sets, daily range): BP systolic 101–157; BP diastolic 56–81
--- NOTE | 2020-04-20 04:17 | NUR ---
ASSUMED PT CARE AT 1900. VSS. PT ALERT, AWAKE, FOLLOWS COMMANDS AND MOUTH'S WORDS. PT HAD A FAIRLY DECENT NOC. NO ISSUES. JEVITY 1.5 STARTED TONIGHT, NOW AT 30ML/HR. PT TOLERATING TUBE FEEDS WELL. PT IS STABLE, WILL CONTINUE TO MONITOR PER POC.
--- NOTE | 2020-04-20 15:30 | NUR ---
PATIENT TRANSFERED TO ROOM 206 VIA BED WITH O2 AND BELONGINGS. REPORT GIVEN TO 2N NURSE.
--- NOTE | 2020-04-20 15:58 | NUR ---
ASSUMED CARE OF PT AT 1600. PT TRANSFER FROM ICU. PT ALERT AND ORIENTED TIMES THREE. VSS. PT HAS TRACH/ 35%FIO2. WOUND VAC IN PLACE. LOPEZ AND FMS BOTH TO DD. PT DENIES PAIN. PT SLOWLY PROGRESSING TOWRADS POC GOALS.
[2020-04-21] VITALS: BP 119/48
--- NOTE | 2020-04-21 03:56 | NUR ---
VSS-AFEBRILE. C/O GENERALIZED ALL OVER BODY ACHES. MEDICATED FREQUENTLY WITH IV PAIN MEDICATION, REPORTED RELIEF AND WAS ABLE TO REST. ALERT AND ORIENTED X 4, LUNGS COURSE, COPIUS AMOUNTS OF YELLOW SPUTUM. TRACH SHIELD REMAINS IN PLACE. LOPEZ AND FMS CONTINUE TO DRAIN WITHOUT DIFFICULTY. TURNED, AND PROVIDED ORAL CARE EVERY TWO HOURS FOR COMFORT. RELEASED RESTRAINTS DUE TO ABILITY TO FOLLOW INSTRUCTIONS, AND ACKNOWLEDGE ORDERS NOT TO PULL ON ANY LINES OR TUBING. FALL PRECAUTIONS IN PLACE.
[2020-04-21 04:14] LABS: HEMATOCRIT 29.8 % (42.0-52.0); HEMOGLOBIN 9.7 gm/dL (14.0-18.0); MCH 29.4 pg (26.0-34.0); MCHC 32.4 g/dL (28.0-37.0); MCV 90.5 fL (80.0-100.0); RBC 3.3 mil/uL (4.50-6.00); RDW 14.7 % (10.5-14.5); WBC 10.4 thou/uL (4.0-11.0)
[2020-04-21 04:37] LABS: ALBUMIN 2.2 g/dL (3.4-5.0); CALCIUM 8.8 mg/dL (8.5-10.1); CREATININE 0.5 mg/dL (0.7-1.3); MAGNESIUM 1.6 mg/dL (1.8-2.4); TOTAL BILIRUBIN 0.3 mg/dL (0.2-1.0); TOTAL PROTEIN 5.3 g/dL (6.4-8.2)
[2020-04-21 04:45] LABS: POTASSIUM 2.5 mmol/L (3.5-5.1)
[2020-04-21 05:05] VITALS: BP 156/39
--- NOTE | 2020-04-21 06:07 | NUR ---
RESTRAINTS REMOVED AT 2300, NO ISSUES PULLING ON TUBES OR LINES. RESTRAINTS LEFT OFF.
[2020-04-21 08:10] VITALS: BP 118/60
[2020-04-21 11:45] VITALS: BP 132/60
[2020-04-21 16:30] VITALS: BP 133/65
--- NOTE | 2020-04-21 18:21 | NUR ---
PT HAS NOT NEEDED RESTRAINTS TODAY, ALERT AND ORIENTED X 4, PLEASANT, DECLINED PAIN MEDS A COUPLE TIMES AND TOOK THEM THE OTHER TIMES THEY WERE OFFERED, PT AWARE OF POSSIBLE DISCHARGE TO 5N ANTICIPATED ON THURSDAY OR THURSDAY, SPOKE WITH SON WHO ALSO IS AWARE OF POC AND PLANS TO VISIT PT TOMORROW. L BUTTOCK NO LONGER RED, BUT APPLIED Z-GUARD CREAM, R BUTTOCK OPEN, CLEANSED AND DRESSING ON, SKIN AROUND SCROTUM AND THIGHS REDDENED, INTERDRY CLOTH APPLIED,
[2020-04-21 19:00] VITALS: BP 147/58
[2020-04-22 03:56] VITALS: BP 119/52
--- NOTE | 2020-04-22 07:50 | NUR ---
ASSUMED PATIENT CARE AT 1845. VITAL SIGNS STABLE WITH PATIENT HAVING NO COMPLAINTS OF NAUSEA. PATIENT DID COMPLAIN OF PAIN AND WAS TREATED APPROPRIATELY THROUGH MEDICATION AND REPOSITIONING. MOSTLY ORIENTED PATIENT IS ABLE TO MAKE MOUTH NEEDS. BREATHING STABLE ON TRACH SHIELD EVIDENCED BY ASSESSMENTS AND CONTINUOUS SATURATION MONITORING. FREQUENT SUCTIONING PROVIDED. PATIENT REFUSED ORAL CARE FROM NURSE FREQUENTLY. TURNS AND SKIN CARE PROVIDED. AROUND 1100 CC'S OUT THROUGH LOPEZ CATHETER. CONTINUE PLAN OF CARE.
[2020-04-22 07:55] VITALS: BP 135/68
[2020-04-22 12:05] VITALS: BP 151/75
[2020-04-22 16:55] VITALS: BP 147/69
--- NOTE | 2020-04-22 18:20 | NUR ---
AAOX4. NONVERBAL D/T TRACH. COPIOUS YELLOW/WHITE SECRETIONS, FREQUENT SUCTIONING. SR PER TELE. ABLE TO MAKE NEEDS KNOWN. K+ 3.2, REPLACED. FALL PRECAUTIONS IN PLACE.
[2020-04-22 20:00] VITALS: BP 146/72
[2020-04-23 03:26] VITALS: BP 153/62
[2020-04-23 04:19] LABS: CALCIUM 9.1 mg/dL (8.5-10.1); CREATININE 0.6 mg/dL (0.7-1.3); MAGNESIUM 1.6 mg/dL (1.8-2.4); POTASSIUM 3.2 mmol/L (3.5-5.1)
[2020-04-23 04:41] LABS: HEMOGLOBIN 10.1 gm/dL (14.0-18.0); MCHC 31.7 g/dL (28.0-37.0); MCV 91.6 fL (80.0-100.0); RBC 3.49 mil/uL (4.50-6.00); RDW 14.8 % (10.5-14.5); WBC 11.2 thou/uL (4.0-11.0)
--- NOTE | 2020-04-23 04:43 | NUR ---
PT IS ALERT AND ORIENTED X4. MOUTHS WORDS WITH NURSING CARE. PT TOLERATING TUBE FEEDS NO RESIDUAL. TURN Q 2 HOURS. LOPEZ CATH PRESENT. FECAL MANAGEMENT PRESENT. INLINE SUCTION WITH TRACH. YELLOW THICK SECREATIONS NOTED. COPIOUS SECREATIONS. WEARS THE BINDER. CHEST SITE DRY AND INTACT. TYLENOL GIVEN FOR PAIN REQUESTED SLEEPING MEDS. INFORM PT TO DISCUSS WITH PHSYICAN. ABDOMEN IS SOFT AND FLAT. SPONGE BATH GIVEN. CALL LIGHT WITHIN REACH IF NEEDS ASSISTANCE.
[2020-04-23 08:00] VITALS: BP 150/88
[2020-04-23 12:00] VITALS: BP 159/68
[2020-04-23 12:32] LABS: ALBUMIN 2.5 g/dL (3.4-5.0); DIRECT BILIRUBIN < 0.1 mg/dL (<0.1-0.2); LIPASE 139 U/L (73-393); SGOT 16 U/L (15-37); SGPT 37 U/L (30-65); TOTAL BILIRUBIN 0.3 mg/dL (0.2-1.0); TOTAL PROTEIN 5.5 g/dL (6.4-8.2)
--- NOTE | 2020-04-23 14:01 | NUR ---
WOUND CARE F/U; I WAS CALLED TO ASSESS THE PATIENT'S RIGHT PLANTAR FOOT. THERE IS A BRUISE UNDER THE SKIN THAT IS CALLUSED SKIN. IT WAS NOTED PREVIOUS. I CANNOT RULE OUT A DEEP TISSUE INJURY. wE WILL CONTINUE TO EVALUATE. RECOMMENDATIONS; PAINT WITH BETADINE DAILY/PRN DISCUSED WITH RN
[2020-04-23 15:25] VITALS: BP 159/65
--- NOTE | 2020-04-23 17:03 | NUR ---
BUSIER DAY FOR THIS PLEASANT BUT UNFORTUNATE PATIENT. MORE WORK WITH PT AND OT TOWARD A 5N TRANSFER. WOUND CARE TREATS. MEDICATED FOR NAUSEA WITH ZOFRAN AND PEPSID. SR PER TELE. FALL PRECAUTIONS IN PLACE.
[2020-04-23 20:02] VITALS: BP 138/61
--- NOTE | 2020-04-24 02:11 | NUR ---
PT IS SLEEPING TONIGHT . IS ALERT AND ORINENTED X4. LUNGS ARE COARSE. THICK YELLOW SECREATIONS. COMPLAINTS OF PAIN NOTED AND PAIN MEDS GIVEN WHICH I THINK TOO HELPED HIM REST. LOPEZ AND A FECAL MANAGMENT SYSTEM IN PLACE. BOOTS ON BILAERAL. TOLERATING TUBE FEEDING. ABDOMINAL BINDER ON AND CHEST DRESING IN PLACE DRY AND INTACT. MOUTHS WORDS FOR COMMUNICATION WITH STAFF. CALL LIGHT WTIHIN REACH IF NEEDS ASSISTANCE.
[2020-04-24 03:15] VITALS: BP 125/61
--- NOTE | 2020-04-24 07:45 | NUR ---
PT SELF PULLED HIS TRACH OUT AND RT AT BEDSIDE. AND REPLACED. AND OXYGEN SATURATION IS 97 PERCENT BUT WITH WHEN WE ENTERED THE ROOM HE WAS PALE AND BOO IN COLOR. RESTRAINTS APPLYIED NOW DUE TO INCIDENT WITH HIM PULLING HIS OWN TRACH OUT WILL NOTIFIY PULMONARY AND OBATAIN CHEST X RAY.
[2020-04-24 08:00] VITALS: BP 131/61
--- NOTE | 2020-04-24 08:05 | NUR ---
DR. WICK UPDATED AND NOTIFED OF SELF EXTUBATION NOTED ON THE PT AND RT REPLACED WITH BACK UP AND PT STABLE AT THIS TIME.
[2020-04-24 12:00] VITALS: BP 126/66
--- NOTE | 2020-04-24 12:53 | NUR ---
Per Director of Carmella Tolbert with no LTAC benefit. Cont plan for care inpatient with transition to 5N.
[2020-04-24 19:47] VITALS: BP 149/71
[2020-04-25 03:41] VITALS: BP 142/71
[2020-04-25 08:15] VITALS: BP 157/81
--- NOTE | 2020-04-25 08:30 | NUR ---
ASSUME CARE 1900. PT A/O X 4. DENIES ANY PAIN. MODERATE TOLERANCE TO ACTIVITY. PT HELPS OUT WITH TURSNS. SR ON MONITOR. ADEQUATE REST/NO DISTRESS NOTED THROUGH THE NIGHT. ASSESSMENT CHARTED. PROGRESSING WELL WITH POC. PLAN IS TO CONTINUE MONITORING RESP FUNCTION AND MONITOR FOR INFECTIO/WOUND HEALING. WILL CONTINUE TO FOLLOW WITH POC
--- NOTE | 2020-04-25 08:37 | NUR ---
RESTAINTS NOT USED. PT A/O X 4 AND DOES NOT PULL ON MEDICAL DEVICES. APPROPRIATEL BEHAVIOR NOTD. RESTRAINTS COMPLETED AND NOT RENEWED. WILL CONTINUE TO FOLLOW WITH POC
--- NOTE | 2020-04-25 11:46 | NUR ---
WOUND CAR F/U; THE WOUNDS TO THE BILATERAL FEET AND ANKLES ARE STABLE USING BETADINE AND BORDERED FOAMS. 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 CONT CURRENT TREATMENT. DISCUSSED WITH EDGARDO
[2020-04-25 11:59] VITALS: BP 107/60
--- NOTE | 2020-04-25 12:35 | NUR ---
Recommend discontinue D5 .45NS fluids since pt already on water flushes of 300ml every 6hr.
--- NOTE | 2020-04-25 12:53 | NUR ---
dc plan for patient is to discharge to 5N. Per phys patient stabe at this time.
[2020-04-25 16:33] VITALS: BP 142/66
--- NOTE | 2020-04-25 18:53 | NUR ---
PT IS ALERT AND ORIENTED. PT HAS TRACH WITH T TUBE, AND ONLY CAN MOUTH WORDS. NURSE SHOULD TAKE TIME TO READ LIPS OF PT. PT UP IN CARDIAC CHAIR FOR AM. PT HAD BRONCHOSCOPY IN AM. PT FECAL MGMT SYSTEM D/C'D. PT NEW IV IN L FOREARM, PROXIMAL TO PREVIOUS IV. PT/OT CONSULTED. DR OBANDO CONSULTED. RT CONTINUE POC. NURSING POC IS TO CONTINUE TO PREPARE PT FOR TRANSFER 5N FOR REHAB. PT SON AT BEDSIDE AT PM. FALL PRECAUTIONS IN PLACE. NO CONCERNS AT THIS TIME.
[2020-04-25 19:52] VITALS: BP 144/65
[2020-04-26 04:52] VITALS: BP 144/69
[2020-04-26 08:46] VITALS: BP 137/63
[2020-04-26 11:20] VITALS: BP 126/57
--- NOTE | 2020-04-26 13:34 | NUR ---
Pt cleared for dc to 5N acute rehab per CTS/Pulm. [facility] is getting report and plan for admission around 5:30pm today. All parties updated.
[2020-04-26] MEDS ORDERED: HYDROCODON-ACE1 EAC7 PER TUBE (13:38)
[2020-04-26] MEDS ORDERED: LORAZEPAM 1 MG T1 MG PER TUBE (13:39)
[2020-04-26] MEDS ORDERED: PRENATAL COMPL1 EACH PER TUBE (13:41)
[2020-04-26] MEDS ORDERED: LOPRESSOR50 PO (13:41)
[2020-04-26] MEDS ORDERED: VITAMIN B-1100 M2 PER TUBE (13:41)
[2020-04-26] MEDS ORDERED: ZESTRIL30 MG PO (13:41)
[2020-04-26] MEDS ORDERED: IPRAT-ALBUT 0.5-3 ML INH (13:41)
[2020-04-26] MEDS ORDERED: PERIDEX 0.12%473 M1 MUCOUS MEM (13:41)
[2020-04-26] MEDS ORDERED: S2 RACEPINEPHR1 EACH INH (13:41)
[2020-04-26] MEDS ORDERED: PACERONE 200 M200 M1 PER TUBE (13:41)
[2020-04-26] MEDS ORDERED: BENADRYL ALLERG25 MG PO (13:41)
[2020-04-26] MEDS ORDERED: ROBITUSSIN100 MG/53 PER TUBE (13:41)
[2020-04-26 15:20] VITALS: BP 134/39
--- NOTE | 2020-04-26 18:28 | NUR ---
ASSUMED CARE OF PT AT SHIFT CHANGE. ASSESSMENTS CHARTED. MEDS GIVEN PER JUN. PT A&OX4, NO C/O PAIN. TOLERATING TRACH WELL, SECRETIONS HAVE REDUCED SIGNIFICANTLY. PT SAT UP IN CARDIAC CHAIR, BUT COMPLAINED HIS "BUTT HURT" AFTER 2 HOURS SO MOVED HIM BACK INTO BED. DISCHARGE ORDERS COMPLETE. PT MOVED TO 5N, ROOM 504.
== END 2020-04-26 17:51 | DRG 4 ==
LOC: ICU 06:08 → TBA 06:08 → PRE 10:13 → ICU 14:30 → 2N 04-20 15:37
PROVIDERS: Hospitalist; Internal Medicine; Internal Medicine Pulmonary Disease; Nurse Practitioner Family; Pediatrics; Physician Assistant; Specialist; ADMIT Surgery Vascular Surgery; ATTEND Surgery Vascular Surgery
PROC: 07B Lymphatic and Hemic Systems, Excision (ICD-10-PCS; principal; 2020-03-09)
PROC: 0W9930Z Drainage of Right Pleural Cavity with Drainage Device, Percutaneous Approach (ICD-10-PCS; principal; 2020-03-09)
PROC: 0BBF8ZZ Excision of Right Lower Lung Lobe, Via Natural or Artificial Opening Endoscopic (ICD-10-PCS; principal; 2020-03-09)
PROC: 5A09357 Assistance with Respiratory Ventilation, Less than 24 Consecutive Hours, Continuous Positive Airway Pressure (ICD-10-PCS; 2020-03-10)
PROC: 5A09357 Assistance with Respiratory Ventilation, Less than 24 Consecutive Hours, Continuous Positive Airway Pressure (ICD-10-PCS; 2020-03-11)
PROC: 05HB33Z Insertion of Infusion Device into Right Basilic Vein, Percutaneous Approach (ICD-10-PCS; 2020-03-11)
PROC: 02H633Z Insertion of Infusion Device into Right Atrium, Percutaneous Approach (ICD-10-PCS; 2020-03-12)
PROC: 0B9F8ZZ Drainage of Right Lower Lung Lobe, Via Natural or Artificial Opening Endoscopic (ICD-10-PCS; 2020-03-23)
PROC: 0BJ08ZZ Inspection of Tracheobronchial Tree, Via Natural or Artificial Opening Endoscopic (ICD-10-PCS; 2020-03-25)
PROC: 5A09357 Assistance with Respiratory Ventilation, Less than 24 Consecutive Hours, Continuous Positive Airway Pressure (ICD-10-PCS; 2020-03-25)
PROC: 0B918ZZ Drainage of Trachea, Via Natural or Artificial Opening Endoscopic (ICD-10-PCS; 2020-03-26)
PROC: 0DH68UZ Insertion of Feeding Device into Stomach, Via Natural or Artificial Opening Endoscopic (ICD-10-PCS; 2020-04-04)
PROC: 0B110F4 Bypass Trachea to Cutaneous with Tracheostomy Device, Open Approach (ICD-10-PCS; 2020-04-04)
PROC: 0B938ZZ Drainage of Right Main Bronchus, Via Natural or Artificial Opening Endoscopic (ICD-10-PCS; 2020-04-17)
PROC: 0DH68UZ Insertion of Feeding Device into Stomach, Via Natural or Artificial Opening Endoscopic (ICD-10-PCS; 2020-04-18)
PROC: 0BJ08ZZ Inspection of Tracheobronchial Tree, Via Natural or Artificial Opening Endoscopic (ICD-10-PCS; 2020-04-25)
DX: C34.90 Malignant neoplasm of unspecified part of unspecified bronchus or lung (principal); J96.21 Acute and chronic respiratory failure with hypoxia; G92 Toxic encephalopathy; E43 Unspecified severe protein-calorie malnutrition; J15.1 Pneumonia due to Pseudomonas; G72.81 Critical illness myopathy; J93.9 Pneumothorax, unspecified; I82.613 Acute embolism and thrombosis of superficial veins of upper extremity, bilateral; J98.11 Atelectasis; I48.20 Chronic atrial fibrillation, unspecified; K94.23 Gastrostomy malfunction; I48.0 Paroxysmal atrial fibrillation; I82.819 Embolism and thrombosis of superficial veins of unspecified lower extremity; J44.0 Chronic obstructive pulmonary disease with (acute) lower respiratory infection; I10 Essential (primary) hypertension; E78.5 Hyperlipidemia, unspecified; E11.9 Type 2 diabetes mellitus without complications; F17.210 Nicotine dependence, cigarettes, uncomplicated; R41.0 Disorientation, unspecified; B96.1 Klebsiella pneumoniae [K. pneumoniae] as the cause of diseases classified elsewhere; F10.20 Alcohol dependence, uncomplicated; T17.990A Other foreign object in respiratory tract, part unspecified in causing asphyxiation, initial encounter; Z95.1 Presence of aortocoronary bypass graft; X58.XXXA Exposure to other specified factors, initial encounter; E87.6 Hypokalemia; D64.9 Anemia, unspecified; I25.10 Atherosclerotic heart disease of native coronary artery without angina pectoris; B96.5 Pseudomonas (aeruginosa) (mallei) (pseudomallei) as the cause of diseases classified elsewhere; R13.10 Dysphagia, unspecified; Y83.8 Other surgical procedures as the cause of abnormal reaction of the patient, or of later complication, without mention of misadventure at the time of the procedure; Y93.89 Activity, other specified; Y92.89 Other specified places as the place of occurrence of the external cause; Y99.8 Other external cause status; Z88.0 Allergy status to penicillin; Z90.49 Acquired absence of other specified parts of digestive tract; Z71.6 Tobacco abuse counseling; Y82.8 Other medical devices associated with adverse incidents; Z20.822 Contact with and (suspected) exposure to COVID-19
CPT/HCPCS: 10078; 10081; 10203; 27000; 47405; 50010; 50101; 50386; 50403; 50417; 50455; 50497; 50550; 50739; 50740; 50850; 50953; 51046; 51301; 52191; 52301; 52303; 54118; 56455; 56524; 56525; 56526; 56527; 56528; 62110; 62900; 65020; 65040; 65105; 70005; 85026

== ENCOUNTER 2020-04-26 14:11 | Inpatient (IN) | payer OTHER ==
[~2020-04-26] VITALS: Ht 198.1 cm; Wt 94.1 kg
[~2020-04-26 14:11] MED LIST changes: +BENADRYL ALLERG25 MG PO; +HYDROCODON-ACE1 EAC7 PER TUBE; +IPRAT-ALBUT 0.5-3 ML INH; +LOPRESSOR50 PO; +LORAZEPAM 1 MG T1 MG PER TUBE; +PACERONE 200 M200 M1 PER TUBE; +PERIDEX 0.12%473 M1 MUCOUS MEM; +PRENATAL COMPL1 EACH PER TUBE; +ROBITUSSIN100 MG/53 PER TUBE; +S2 RACEPINEPHR1 EACH INH; +VITAMIN B-1100 M2 PER TUBE; +ZESTRIL30 MG PO
[2020-04-26 18:10] VITALS: BP 136/59
--- NOTE | 2020-04-26 20:13 | NUR ---
PATIENT ADMITTED TO ROOM 504 AT 1810. TRACHE WAS OPEN, AND A PORTABLE O2 TANK WAS SET UP AT 6L VIA SIMPLE MASK, WHICH HAD BEEN STRAPPED OVER THE OPEN TRACHE. PATIENT WAS SLIGHTLY DYSPNEIC, AND NOTED THAT O2 SAT WAS 86-87%. RESPIRATORY THERAPY WAS CALLED IMMEDIATELY FOR SETUP WITH HUMIDIFIED TRACHE COLLAR OR T-PIECE AND THEY ARRIVED SHORTLY AFTER BEING CALLED. PT WAS PLACE DON T-PIECE WITH IN-LINE SUCTION, AND WAS SUCTIONED DEEPLY, WITH LARGE AMOUNT WHITE SECRETIONS. NOTED THAT PT HAS LOW-GRADE TEMP OF 99.1 AND DENIES ANY DISCOMFORT. LUNGS ARE COARSE THROUGHOUT. NOTED PRAVENA DRESSING IS INTACT AND HOOKED TO THE WOUND VAC. SURGICAL DRESSING REMAINS C/D/I TO RT LATERAL CHEST AND TORSO. ABD BINDER WAS UNHOOKED AND SKIN ASSESSED, THEN BINDER REPLACED AFTER PEG TUBE CLEANED. PT IS ON CONTINUOUS TUBE FEEDINGS AND INSPECTOR FINISHING HAS BEEN CONSULTED. NOTED ABS IS SOFT AND NON-TENEDER WITH ACTIVE BS'S. PT HAD SMALL INCONT PASTY BROWN BM WHEN SKIN AT BUTTOCKS WAS ASSESSED. WOUND NOTED AT LEFT BUTTOCK, PHOTO AND MEASUREMENTS TAKEN, AND PERIWOUND SKIN IS FRAGILE, PURPLE IN COLOR, AND COVERED IN Z-GUARD. AREA CLEANED AND MEPILEX BORDER DRESSING APPLIED. NOTED RED AND PURPLE RASK AT GROIN, AND THIS HAS POWDER TO THE AREA. PT DENIES PAIN. LOPEZ PATENT AND URINE CLEAR. CATH SECURE PLACED ON OPPOSITE LEG. NOTED EDEMA TO BLE AT ANKLES, LEFT SLIGHTLY WORSE THAN RIGHT. POSTERIOR TIBIAL PULSES 2+ BILAT. WOUND NOTED AT RT LATERAL MALLEOLUS AND RT LATERAL AND PLANTAR FOOT. PHOTOS AND MEASUREMENTS NOTED. DRESSING SEEN AT LEFT LATERAL ANKLE, AND THIS WAS REMOVED TO REVEAL NO SKIN ISSUE UNDERNEATH, SO THIS DRESSING REMAINS OFF. IV AT LEFT WRIST WAS LEAKING, SO SL REMOVED. NOTED IV AT LEFT FOREARM IS #22 AND DATED FOR 04/25. THIS SL FLUSHES WELL WITH GOOD BLOOD RETURN AND WILL REMAIN IN PLACE FOR NOW. RESPIRATORY THERAPY HAS RETURNED NOW TO COMPLETE TRACHE CARE. THEY HAVE REPLACED THE INNER CANNULA, PLACED A DRAIN SPONGE, AND REPOSITIONED THE T-PIECE. PT IS RESTING COMFORTABLY AND REPORT WAS GIVEN TO THE ONCOMING SHIFT.
--- NOTE | 2020-04-27 00:10 | NUR ---
PT ALERT AND ORIENTED X 4. LOPEZ PATENT DRAINING ADEQUATE AMTS CLEAR YELLOW URINE. PEG TUBE INTACT AND PATENT. JEVITY 1.5 INFUSING AT 65 ML/HR. NO RESIDUAL AT HS. MEDS GIVEN PER PEG ORDERED. WOUND VAC INTACT TO RIGHT BACK. LEFT BUTTOCKS DRESSING C/D/I. PT SUCTIONED FREQUENTLY FOR WHITE SPUTUM. INCONT OF SOFT BROWN STOOL. PT REFUSES TO BE TURNED TO SIDE. BED ALARM ON FOR SAFETY. PT CHECKED ON HOURLY ROUNDS. CALLS OUT FREQUENTLY FOR VARIOUS THINGS. APPEARS TO BE SLEEPING AT INTERVALS.
[2020-04-27 05:33] LABS: HEMATOCRIT 30.3 % (42.0-52.0); HEMOGLOBIN 9.7 gm/dL (14.0-18.0); MCH 29.1 pg (26.0-34.0); MCHC 32.1 g/dL (28.0-37.0); MCV 90.6 fL (80.0-100.0); RBC 3.35 mil/uL (4.50-6.00); RDW 14.7 % (10.5-14.5); WBC 10.4 thou/uL (4.0-11.0)
[2020-04-27 05:41] LABS: CALCIUM 9.5 mg/dL (8.5-10.1); CREATININE 0.6 mg/dL (0.7-1.3); POTASSIUM 3.3 mmol/L (3.5-5.1)
[2020-04-27 08:00] VITALS: BP 134/74
[2020-04-27 12:09] LABS: % SATURATION 14 % (20-39); IRON 26 ug/dL (65-175); TIBC 186 ug/dL (250-450)
[2020-04-27 12:37] LABS: FOLIC ACID 16.1 ng/mL (8.6-58.9)
--- NOTE | 2020-04-27 17:16 | NUR ---
Case opened to follow for dc planning. Pt admitted to acute rehab yesterday evening after a lengthy and complex hospital course. The pt is s/p rt lobectomy on 03/10/20 due to small cell lung cancer. His post surgical course involved being reintubated with trach and peg placement. Pt was able to wean off the vent and is now on O2 per shukri welsh. He continues to have a preevna vac on his surgical wound being managed by CTS. He is being seen by PT/OT/ST for intensive rehabiliation. The pt was working in the [facility] prior to admission. He was indep, active and driving. He lives alone in a split level home with 4 steps in and 5/5 to go upstairs or downstairs. His son Jagdish is his emergency contact and will be participating in dc planning discussions as the pt's main support. The pt has no prior dme/hh/snf history. Team conference next Thursday and Jagdish would like to be updated on his father's progress. Pt's goal is to get stronger. Will follow.
--- NOTE | 2020-04-27 18:51 | NUR ---
TRACH SUCTIONED NEEDED THROUGHOUT SHIFT-RT TO UNIT X 2 TO PROVIDE ADDITIONAL TRACH CARE-ON CONTINOUS 02 SAT MONITOR AND SATS RANGING FROM 94-98 PERCENT.JEVITY INFUSING VIA PEG TUBE 65 CC/HR-H20 FLUSHES Q 4-6 HOURS-ABDOMEN SOFT NON-TENDER WITH LESS THAN 10 CC RESIDUAL PRIOR TO MEDS AND [id number] CARE DONE TO RIGHT FOOT/ANKLE AND COCYX WOUND CLEANSED AND Z-JEFF APPLIED PER ORDER. ABLE TO REPOSITION SELF IN BED AND SITS AT SIDE OF BED X2 WITH MINIMAL ASSIST. SALINE LOCK LEFT FOREARM FLUSHES WITHOUT DIFFICULTY-NO REDNESS,EDEMA,TENDERNESS NOTED. HEEL PROTECTORS ON PER ORDER. LOPEZ PATENT DRAINING STRAW COLORED YELLOW URINE.
[2020-04-27 20:00] VITALS: BP 136/70
[2020-04-27 23:06] LABS: GLYCOHEMOGLOBIN (HGB A1C) 6.5 % (4.8-5.6)
--- NOTE | 2020-04-28 03:21 | NUR ---
ASSUMED CARE APPROX 1900 EVENING 04/27. PT LYING IN BED AT CHANGE OF SHIFT DOZING OFF AND ON. LOPEZ TO DD WITH YELLOW URINE TO BAG. WOUND VAC IN PLACE FUNCTIONING PROPERLY. TRACH IN PLACE WITH SHIELD AND SUCTIONING PRN. CONTINUOUS PULSE OXIMETER IN PLACE WITH SATS 92% AND GREATER. PT NPO WITH PEG TUBE IN PLACE WITH CONTINUOUS TUBE FEEDING AT 65/HR. MEDS CRUSHED AND GIVEN PER PEG TUBE. PRAFO BOOTS ON. BED ALARM ON AND CALL LIGHT IN REACH. WILL CONTINUE TO MONITOR.
[2020-04-28 07:20] VITALS: BP 120/65
--- NOTE | 2020-04-28 10:00 | NUR ---
ASSUMED CARE AT 0700. PT SLEPT FAIRLY WELL. ALERT, NON VERBAL, ABLE TO MAKE NEEDS KNOWN AND FOLLOW COMMANDS. MOUTH WORDS. DENIES ANY PAIN. GOOD BILATERAL FOOD MANAGEMENT AIDE. TRACH INTACT WITH VENTRIMASK AT 13L 02. CONT PULSE 02 AT 96-99% PT NOT IN ANY DISTRESS. INLINE SUCTIONING PRN WITH MODERATE AMT OF THICK GRAYISH SPUTUM. GOOD COUGH EFFORT AND YANKEUR USED PRN. PT TOLERATES PROCEDURE WELL. ST PLACED SPEAKING VALVE AND PT TOLERATED 20MIN X 2 WITH NO 0XYGEN. RT NOTIFIED OF PROGRESS. ALSO PLAN FOR SWALLOW STUDY ON THURSDAY PER ST. PT PARTICIPATED WITH PHY THERAPY AND ABLE TO STAND AND WALK A COUPLE OF STEPS WITH ASSISTANCE. INCONTINENCE OF BOWEL, HAD A LARGE BM TODAY. DRESSING CHANGE TO COCCYX, SKIN DRY AND SMALL AMOUNT OF SEROUS DRAINAGE. PT REFUSED MOUTH WASH, EDUCATION GIVEN. LUNGS CLEAR AND COARSE. PEG TUBE INTACT WITH CONT FEEDING AT 65ML/HR AND WATER BOLUS 200ML Q 4HR. NO RESIDUAL NOTED. MEDS CRUSHED AND GIVEN VIA PEG. LOPEZ DRAINING WELL WITH LARGE AMOUNT OF YELLOW URINE. WOUND VAC TO R RIB CAGE INTACT WITH MIN DRAINAGE AND CONT SUCTIONING. PT TURNED Q2-3 HOURS AND PT ABLE TO MOVE TO SIDE AND WEDGE APPLIED TO BACK. PRAFO BOOTS TO BOTH LEGS. ACCUCHECKS CHECKED AND TREATED WITH INSULIN.
[2020-04-28 19:16] VITALS: BP 137/66
--- NOTE | 2020-04-29 03:03 | NUR ---
assumed care approx 0 evening 04/28. pt awake, calm and cooperative. trach in place with shield and suctioning prn. baeza to dd with yellow urine to bag. peg tube in place with Jevity 1.5 continuous at 65/hr. continuous pulse oximeter on with sats 92% and greater. pt incontinent of bowel, assisted with turning and changing. prafo boots on. bed alarm on and call light in reach. will continue to monitor.
[2020-04-29 09:54] VITALS: BP 140/64
--- NOTE | 2020-04-29 12:51 | NUR ---
PT ALERT AND ORIENTED TIMES FOUR. PT MOUTHES WORDS DUE TO HAVING TRACH. VSS. PEG TUBE IN PLACE, PT TOLERATES TUBE FEEDING. WOUND VAC IN PLACE. DRESSING TO RIGHT LE CHANGED THIS SHIFT. JESSICA TO INGA. PT WORKED WELL WITH PT TODAY STANDING AT THE SIDE OF THE BED. PT PROGRESSING TOWRADS POC GOALS.
[2020-04-29 19:32] VITALS: BP 165/93
--- NOTE | 2020-04-29 23:04 | NUR ---
PT ASSESSMENT COMPLETED AND VSS. MEDS GIVEN ORDERED VIA PEG. TF RESIDUAL 20. FLUSHES GIVEN ORDERED. TF RUNNING CONT AT GOAL RATE OF 65. ASST WITH REPOSITION FOR COMFORT. TRACH CARE PROVIDED AND INTACT. SAT WNL ON MONITOR 98%. WOUND VAC WNL. DSG ON R FOOT DRY AND INTACT. PRAFO BOOTS IN PLACE. LOPEZ DRAINING DARK YELLOW URINE. PRN PAIN MEDICATION WORKING WELL. WILL CONTINUE TO MONITOR BG. SLEEPING. WILL CONTINUE TO MONITOR FREQUENTLY.
[2020-04-30 07:15] VITALS: BP 125/61
--- NOTE | 2020-04-30 12:47 | NUR ---
ASSUMED CARE AT 0700. PATIENT IS ALERT AND ORIENTED X4. PATIENT CACERES'S, BUT IS VERY WEAK. PATIENT IS ON LOW ENDURANCE PROGRAM WITH THERAPY. PATIENT HAS A TRACH AND IS BEING SUCTIONED PRN. PATIENT HAS HUMIDIFIED 02 TO HIS TRACH. PATIENT IS NPO AND IS ON T.F. JEVITY 1.5 AT 65 CC/HR PER PEG TUBE. PATIENT HAS WOUND VAC TO HIS BACK AND BOTH THE G-TUBE AND WOUND VAC ARE COVERED BY ABD BINDER. PATIENT HAD VIDEO SWALLOW TODAY. PATIENT ASPIRATED NECTAR THICK LIQUIDS, BUT NOT HONEY THICK. S.T. WILL CONTINUE TO WORK WITH THE PATIENT ON A DAILY BASIS. PATIENT HAS A I.V. IN HIS LEFT FORARM. PATIENT HAS LOPEZ TO DD, DRAINING TOMAS COLORED URINE. PATIENT HAS WOUND ON HIS ANKLE AND LEFT BUTTOCKS AND OPTIFOAM CHANGED.FALL AND SAFETY PROTOCOLS IN PLACE. DENIES PAIN AT THIS TIME. CONTINUES TO PROGRESS SLOWLY TOWARDS D/C GOALS. WILL CONTINUE TO MONITER.
--- NOTE | 2020-04-30 15:21 | NUR ---
WOUND CARE F/U; ALL THE WOUNDS SHOW IMPROVEMENT. THE LEFT BUTTOCKS, BILATERAL MALLEOLOUS, THRIGHT PLANTAR FOOT. TODAY THE LEFT BUTTOCKS IS SLOW TO JORDANA. I NOTIFIED THE RN AND EDITOR FARM JOURNAL WELL THE SUBSTATION ELECTRICIAN SUPERVISOR. NO S/S OF INFECTION TODAY. THIS PATIENT IS OVERALL BETTER SINCE HIS ADMISION. RECOMMEDATIONS; 1-TURN PATIENT Q2H (SPOKE WITH NURSING STAFF. DISCUSSED WITH RN
[2020-04-30 19:32] VITALS: BP 141/73
--- NOTE | 2020-04-30 23:04 | NUR ---
ASSUMED CARE OF PT AT 1915. PT IS ALERT. DENIES PAIN. TRACH INTACT WITH O2 ON 10L. PT PT IS STABLE. IS SUCKED PRN. JEVITY 1.5 AT 70 ML/HR/ PEG TUBE. ABD BINDER IN PLACE. IS UP WITH ASSIST X3, GB. FALL PRECAUTIONS & HOURLY ROUNDING CONTINUED THIS SHIFT. LABS & VITALS REVIEWED. PT IS TURNED Q2H FROM L TO R. HEELS OFF LOADED. DRSGS TO ANKLE & BUTTOCKS C/D/I. WOUND VAC IN PLACE. PT IS CURRENTLY ASLEEP. CALL LIGHT WITHIN REACH. WILL CONTINUE TO MONITOR.
[2020-05-01 07:20] VITALS: BP 129/74
[2020-05-01 07:21] LABS: ABSOLUTE NEUTROPHILS 7.5 thou/uL (1.4-8.2); EOSINOPHILS 2.2 % (0.0-3.0); HEMATOCRIT 33.1 % (42.0-52.0); HEMOGLOBIN 10.4 gm/dL (14.0-18.0); LYMPHOCYTES 15.8 % (24.0-44.0); MCH 28.7 pg (26.0-34.0); MCHC 31.4 g/dL (28.0-37.0); MCV 91.2 fL (80.0-100.0); MONOCYTES 9.6 % (1.0-8.0); PLATELET COUNT 366 thou/uL (150-400); POLYS 71.4 % (36.0-66.0); RBC 3.63 mil/uL (4.50-6.00); RDW 14.6 % (10.5-14.5); WBC 10.5 thou/uL (4.0-11.0)
[2020-05-01 07:35] LABS: CALCIUM 9.7 mg/dL (8.5-10.1); CREATININE 0.7 mg/dL (0.7-1.3); MAGNESIUM 1.9 mg/dL (1.8-2.4)
[2020-05-01 07:36] LABS: POTASSIUM 4.1 mmol/L (3.5-5.1)
--- NOTE | 2020-05-01 10:18 | EKG ---
[place] [address] [facility] [place] [address] ELECTROCARDIOGRAM REPORT Name: SHAN PETERSEN Room #: 504-1 ADM IN M.R.#: [id number] Admission: 04/26/20 Attend Phys: Gary Sarabia MD Discharge: Date of : 56 Report #: [id number] [facility] Test Date: 2020-05-01 Test Time: 09:42:58 Pat Name: SHAN PETERSEN Department: Room: [facility] Gender: M Exhibition Specialist: RONAK : 1960 Requested By: Amy Gamboa Order Number: [id number] MD: Vignesh Denson Measurements Intervals [place] Rate: 128 P: 70 IN: 156 QRS: 19 QRSD: 82 T: 68 QT: 299 QTc: 437 Interpretive Statements Sinus tachycardia Probable left atrial enlargement Low voltage, extremity and precordial leads Baseline wander in lead(s) V2 Compared to ECG 03/11/2020 13:42:55 Atrial flutter no longer present Electronically Signed On 05-01-2020 10:18:39 HOUSEMAN by Vignesh Denson [email or web address] <ELECTRONICALLY SIGNED> By: Vignesh Denson MD, [facility] 05/01/20 1018 0942 Vignesh Denson MD, [facility] /EPI
--- NOTE | 2020-05-01 10:52 | NUR ---
ASSUMED CARE AT 0700. PATIENT IS ALERT AND ORIENTED X4. PATIENT CACERES'S, FAMILY MEMBER CARETAKER ARE EQUAL. LUNGS ARE DEMINISHED WITH 02 TO TRACH SHIELD. ABD IS SOFT WITH BSX4. PATIENT HAD BM TODAY. G.T. PATENT. T.F. OF JEVITY 1.5 INFUSING AT 65 CC/HR. PLAN TO CHANGE TO BOLUS FEEDING AT 1200. LOPEZ TO BE D/C'D AT 1200. LOPEZ IS DRAINING TOMAS COLORED URINE. OPTIFOAM TO BUTTOCKS INTACT. PATIENT IS TURNING HIMSELF Q 2 HOURS. OPTIFOAM TO ANKLE DRY AND INTACT. S.L. IN PAITENTS LEFT FORARM IS INTACT. PATIENT SUCTIONED FOR THICK WHITE SECRETION. UP IN THE CHAIR FOR ST. PATIENT IS UP WITH WALKER TO AMBULATE BACK TO BED. WILL CONTINUE TO MONITER.
--- NOTE | 2020-05-01 16:01 | NUR ---
TEAM CONFERENCE: PT ADMITTED TO ARU W/DX OF [facility]. PT HAS TRACH, PT ASPIRATED ON NECTAR THCK LIQUIDS. PT IS NPO. PT HAD SWALLOW STUDY DONE YESTERDAY. PT HAS MILD TO MOD COGNITIVE DEFICIT AND MEMORY HAS TO BE ASSESSED. GAIT IS 1O FT W/ FWW AND MOD ASSIST. WOUND CARE FOLLOWING. PT NOTIFIED OF TEAM FINDINGS. PT SON, JANEEN ALSO NOTIFIED. JANEEN SAID HE AND HIS BROTHER ARE AVAIL TO PROVIDE BHARGAVI CHECKS AND/OR PT CAN STAY AT JANEEN'S HOME NEED BE, CURRENTLY JANEEN AND HIS ARE WORKNG FROM HOME AND THEY HAVE TEENAGERS. D/C PLAN IS TO RE-TEAM.
[2020-05-01 19:46] VITALS: BP 133/69
--- NOTE | 2020-05-02 02:52 | NUR ---
assumed care approx 1900 evening 05/01. pt appropriate and cooperative. trach in place with shield, suctioned prn. continuous pulse oximeter in place sats 92% and greater. wound vac in place operating without difficulty. pt voiding per urinal. pt NPO. peg tube in place with continous tube feeding. pt with no nausea, vomiting. call light in reach. will continue to monitor.
[2020-05-02 09:00] VITALS: BP 110/57
--- NOTE | 2020-05-02 15:31 | H ---
[facility] [place] [address] HISTORY AND PHYSICAL Name: SHAN PETERSEN Room #: 504-1 ADM IN M.R.#: [id number] Admission: 04/26/20 Attend Phys: Gary Sarabia MD Discharge: Date of : 56 Report #: [id number] THIS REPORT FOR: cc: Gary Wade David J. DO Smithson, David G. MD ~ DATE OF SERVICE: 04/26/2020 HISTORY OF PRESENT ILLNESS: The patient is now been admitted for acute in-hospital inpatient rehabilitation. Please see my prior consult note addendums and I agree with the history and physical as is documented. The patient's secretions have adequately decreased and he has improved as far as his overall orientation and ability to follow commands. He did pull out his trach a couple of days ago and was restrained, but has no longer needed restraint and appears appropriate as far as understanding the need for the trach. He is very low level as far as his functional endurance, but is felt to be ready for admission for acute in-hospital inpatient rehabilitation on a low endurance program. As far as past medical history, allergies, social history, habits, please see the above documentation. MEDICATIONS: Per the MAR. REVIEW OF SYSTEMS: As documented. He does have the secretions with coughing, but they have decreased down and he is able to cough them out of his trach. He does not have any specific chest pain, shortness of breath, or abdominal discomfort. PHYSICAL EXAMINATION: GENERAL: As documented. HEENT: He is on the T-tube. He is able to mouth his words. VITALS SIGNS: Are as noted. LUNGS: Coarse. CARDIOVASCULAR: Regular rate and rhythm. ABDOMEN: Bowel sounds positive. PEG tube with minimal drainage. He has Soler. RECTAL: He had a rectal tube before on acute which has been removed. CHEST: He has wound VAC on right posterior chest. EXTREMITIES: Bilateral large blisters noted on foot. NEUROMUSCULOSKELETAL: He follows basic one-step commands. He is min to mod assist with bed mobility, which is an improvement. He has not been able to ambulate, although we are getting him up sitting in a chair. ASSESSMENT: Are as documented. 1. He has critical illness myopathy. [address] [address] HISTORY AND PHYSICAL Name: SHAN PETERSEN Mar Room #: 504-1 ADM IN ..#: [id number] Admission: 04/26/20 Attend Phys: Gary Sarabia MD Discharge: Date of : 56 Report #: [id number] 2. Acute metabolic encephalopathy. 3. Non-small lung cancer, status post right thoracotomy. 4. Right lower lobectomy and lymph node dissection on 03/09/2020. 5. He has a history of upper respiratory infection with Pseudomonas aeruginosa. 6. History of recurrent hypoxic respiratory failure, status post trach on 04/04/2020. 7. Protein-calorie malnutrition, status post percutaneous endoscopic gastrostomy tube placement on 04/04/2020. 8. Buttock and ankle pressure wounds, bilateral cephalic veins, nonocclusive thrombus. 9. Atrial fibrillation, now in normal sinus rhythm. 10. Hypertension. 11. Diabetes mellitus type 2 with peripheral neuropathy. 12. Chronic obstructive pulmonary disease. 13. Hypertension. 14. Hyperlipidemia. 15. History of alcohol and tobacco abuse. PLAN: He is involved in the inpatient rehabilitation program. He has the multiple clinical documentation consultant physicians that are involved. We are continuing him with his DVT prophylaxis with Lovenox as he remains at significant risk with his lower level. He will be on the low endurance program. He will be monitored closely regarding his pulmonary status and Respiratory Therapy will be involved along with nursing care. The goal is to further maximize his functional independence, strength, and endurance. We will have the consultants continue to follow regarding his multiple medical comorbidities. The goal is to hopefully return him back to the home setting. We would anticipate a long acute inpatient rehabilitation stay at least 3-4 weeks. This is a history and physical addendum. Please see the documentation by Zahra Ramesh, nurse practitioner. <ELECTRONICALLY SIGNED> By: Gary Sarabia MD 05/02/20 1531 [id number] [id number] Gary Sarabia MD /nt
--- NOTE | 2020-05-02 15:31 | PLAN ---
[facility] [place] [address] REHAB UNIT PLAN OF CARE Name: SHAN PETERSEN Room #: 504-1 ADM IN M.R.#: [id number] Admission: 04/26/20 Attend Phys: Gary Sarabia MD Discharge: Date of : 56 Report #: [id number] THIS REPORT FOR: cc: Gary Wade David J. DO Smithson, David G. MD ~ DATE OF SERVICE: 04/28/2020 PROGRESS NOTE AND OVERALL PLAN OF CARE SUBJECTIVE: The patient was seen back earlier in followup. He is in no distress. Last recorded temperature 36.8, pulse 81, respirations 18, blood pressure is 120/65. He is alert. Noted to have the trach with trach tube, PEG tube, wound VAC to the upper back, Soler catheter. He is doing better as far as basic bed mobility. He is able now to participate in therapy and was standby assistance with basic bed mobility. He is able to sit at the edge of bed with standby without loss of balance and starting to work on basic reaching activities. He did actually complete 3 sit to stand with bed elevated with min assist x 2. He was able to stand up to 30 seconds on the first attempt. In occupational therapy, they are working with him in therapies as well. He is min assist lower body dressing. He does tend to fatigue, but is definitely motivated. Speech therapy is also involved. He is currently on tube feedings. ASSESSMENT: 1. Critical illness myopathy. 2. Acute metabolic encephalopathy. 3. Non-small cell lung cancer, status post right thoracotomy, right lower lobectomy and lymph node dissection on 03/09/2020. 4. Upper respiratory infection with Pseudomonas aeruginosa. 5. Recurrent hypoxic respiratory failure, status post tracheostomy. 6. Protein-calorie malnutrition, status post PEG tube placement. 7. Buttock and ankle pressure wounds. 8. Atrial fibrillation, now in normal sinus rhythm. 9. Diabetes mellitus type 2 with peripheral neuropathy. 10. Chronic obstructive pulmonary disease. 11. Hypertension. 12. Hyperlipidemia. PLAN: The overall plan of care is based on the preadmission screen and information garnered from therapy assessments. 1. Estimated length of stay is probably quite long, at least 3 weeks-4 weeks. 2. Medical prognosis is reasonably good. 3. Anticipated interventions includes the interdisciplinary acute inpatient rehabilitation program. 4. Anticipated functional outcomes would be for the patient to hopefully wean [address] [address] REHAB UNIT PLAN OF CARE Name: TRINITYSHAN Room #: 504-1 ADM IN ..#: [id number] Admission: 04/26/20 Attend Phys: Gary Sarabia MD Discharge: Date of : 56 Report #: [id number] off the trach, be able to start eating and decreased tube feeding, improve his overall strength and endurance and independence. 5. Discharge destination would be back to the home setting. He does have a supportive son who is in town. 6. Expected therapy by discipline includes PT, OT and speech 1 hour per day each 5 days a week throughout the duration of the acute inpatient rehabilitation program. He is on the low endurance program. The patient's prognosis for significant practical improvement within a reasonable period of time appears good. Given the patient's complex medical condition and risk of further medical complications, rehabilitation services could not be safely provided at a lower level of care such as a halfway facility. <ELECTRONICALLY SIGNED> By: Gary Sarabia MD 05/02/20 1531 [id number] Gary Sarabia MD /[facility]
--- NOTE | 2020-05-02 16:00 | NUR ---
ASSUMED CARE AT 0700. ALERT AND ORIENTATED. NON VERBAL AND ABLE TO MOUTH WORDS AND MAKE NEEDS KNOWN. DENIES ANY PAIN. TRACH MASK INTACT WITH 02 AT 10L WITH CONT PULSE 02 AT 99%. HAD A SMEAR THIS MORNING. WOUND CARE DONE AND DOCUMENTED. PARTICIPATING WITH THERAPY AND SHOWING SLOW PROGRESSSION AND ABLE TO WALK WITH WALKER WITH PHY THERAPY. NOCTURNAL FEEDING 2CAL HN AT 60ML/HR STARTED AT 1600, NO RESIDUAL NOTED. SPOKE TO SEAFOOD MANAGER ABOUT DAY FEEDING AND CLARIFY PT IS ON HIGH FORMULA AND NOCTURNAL FEEDING IS SUFFICIENT WITH BOLUS FEEDING Q4H. BENEPROTEIN GIVEN WITH FLUSHES. PT TOLERATED FEEDING. CONT TO MONITOR.
[2020-05-02 19:10] VITALS: BP 126/76
[2020-05-02 20:45] VITALS: BP 137/83
--- NOTE | 2020-05-02 23:06 | NUR ---
PT ALERT AND ORIENTED X 4. NO RESP DISTRESS AT START OF SHIFT. AT 2024, PT SOB, RESTLESS. SUCTIONED FOR SMALL AMT WHITE SPUTUM. BECAME INCREASINGLY MORE SOB AND WAS COUGHING AND TURNING RED IN THE FACE. CALLED RT TO COME UP AND ASSESS PT. AT 2034 PT BECAME BLUE AND HIS EYES ROLLED BACK IN HIS HEAD. DARCY CABELLO CALLED. RT RESPONDED AND FOUND T-TUBE OXYGEN WITH CAP ON. RT HAD BEEN IN EARLIER TO HOOK PT UP TO IN LINE SUCTION. WHEN CAP REMOVED, PT BECAME ALERT AND RESPONSIVE. RESP IMPROVED AND O2 SAT UP T0 97%. 02 SAT WENT DOWN TO THE 80'S WHEN IN RESPIRATORY DISTRESS. DARCY CABELLO CANCELLED. VS AT 2044 WERE 137/83, HR 107, RR 24. PT CHECKED ON EVERY 15 MINUTES SINCE THIS INCIDENT AND HE APPEARS TO BE SLEEPING WITH NO RESPIRATORY DISTRESS. CONT O2 SAT MONITOR ON AND SATS IN HIGH 90'S. PEG TUBE PATENT. KAYLEE FEEDINGS WELL. WOUND VAC INTACT TO RIGHT BACK. RIGHT ANKLE WITH OPTIFOAM DRESSINGS. PRAFO BOOTS ON. PT C/O HEADACHE. HYDROCODONE GIVEN AND PT SLEEPING UPON REASSESSMENT. BED ALARM ON FOR SAFETY.
[2020-05-03 06:13] LABS: ABSOLUTE NEUTROPHILS 6.5 thou/uL (1.4-8.2); BASOPHILS 0.9 % (0.0-2.0); EOSINOPHILS 1.8 % (0.0-3.0); HEMOGLOBIN 9.9 gm/dL (14.0-18.0); LYMPHOCYTES 24.8 % (24.0-44.0); MCH 29.1 pg (26.0-34.0); MCHC 31.8 g/dL (28.0-37.0); MCV 91.4 fL (80.0-100.0); MONOCYTES 9.1 % (1.0-8.0); PLATELET COUNT 352 thou/uL (150-400); POLYS 63.4 % (36.0-66.0); RBC 3.39 mil/uL (4.50-6.00); RDW 15.1 % (10.5-14.5); WBC 10.3 thou/uL (4.0-11.0)
[2020-05-03 06:29] LABS: ALBUMIN 2.6 g/dL (3.4-5.0); CALCIUM 9.4 mg/dL (8.5-10.1); CREATININE 0.7 mg/dL (0.7-1.3); POTASSIUM 3.4 mmol/L (3.5-5.1); TOTAL BILIRUBIN 0.3 mg/dL (0.2-1.0)
[2020-05-03 08:00] VITALS: BP 139/72
--- NOTE | 2020-05-03 11:40 | NUR ---
WOUND CARE F/U; THE PATIENT OVERALL HEALTH IS IMPROVING. THE RIGHT FOOT WOUNDS ARE HEALED. I WILL CONTINUE TO FOLLOW FOR ANY PROBLEMS. THE LEFT BUTTOCK WOUND IS CLINICALLY BETTER. THERE ARE NO S/S OF INFECTION. THIS PATIENT IS MOTIVATED. CONTINUE CURRENT ORDERS. DISCUSSED WITH EDGARDO
--- NOTE | 2020-05-03 15:00 | NUR ---
ASSUMED CARE AT 0700. ALERT AND ORIENTATED, NON VERBAL. TRACH MASK INTACT WITH 02 AT 35%. TOLERATING WELL WITH NO SIGN OF DISTRESS. SUCTIONING DONE PRN. LUNG COARSE AND RHONCHI. PT POSITIONED TO SEMI FOWELRS. TOLERATED NOCTURNAL FEEDING AND WATER BOLUSES WITH NO RESIDUAL. WOUND VAC TO R RIB CAGE SITE. WOUND CARE DONE ORDERED. PARTICIPATING WITH THERAPIES. PROGRESSING SLOWLY. SPOKE TO RT ABOUT FLUTTER PT IS HAVING DIFFICULTY WITH USING INCENTIVE SPIROMETRY. PT ALSO ENC TO SIT UP IN THE WC TO FACILITATE WITH BREATHING AND PREVENTION OF ANY WORSENING OF PRESSURE SORES. HE MANAGED TO SIT FOR 30 MIN AND REQUESTED TO LIE BACK IN BED DUE TO FATIGUE. GOAL IS TO ENC PT TO INCREASE DURATION OF SITTING EACH DAY.
[2020-05-03 19:49] VITALS: BP 127/62
--- NOTE | 2020-05-03 23:46 | NUR ---
PT ASSESSMENT COMPLETED AND VSS. MEDS GIVEN ORDERED AND WELL TOLERATED. FALL PRECAUTIONS IN PLACE. TRACH WNL AND SUCTIONED PRN. PEG TUBE FEEDING/FLUSHES/AND RESIDUAL CHECKS CONTINUE. ASST WITH REPOSITION FOR COMFORT. GREG PRAFO BOOTS ON. DENIES NEEDS. PRN PAIN MEDICATION WORKING WELL. SLEEPING. WILL CONTINUE TO MONITOR FREQUENTLY.
[2020-05-04 07:15] VITALS: BP 116/63
--- NOTE | 2020-05-04 07:51 | NUR ---
ASSUMED CARE AT 0700. PATIENT IS ALERT AND ORIENTED X4. PATIENT CACERES, DISTRICT FIRE MANAGEMENT OFFICER ARE EQUAL. LUNGS ARE COARSE AND DEMINISHED. PATIENT HAS 35% 02 TO TRACH. PATIENT SUCIONED FOR SMALL AMOUNT OF THICK WHITE SECRETIONS. PATIENT CONTINUES ON RESPIRATORY TX. ABD IS SOFT WITH BSX4. PATIENT HAS PEG TUBE WIH T.F. OF 2NHN INFUSING AT 60CC/HR PER PUMP TILL 8AM, THEN OFF. PATIENT HAS WOUND TO HIS BUTTOCKS, OPTIFOAM IN PLACE. RIGHT ANKLE OPEN TO AIR TX COMPLETED. PATIENT IS VOIDING TOMAS COLORED URINE PER URINAL. FALL AND SAFETY PROTOCOLS IN PLACE. DENIES PAIN AT THIS TIME. CONTINUES TO PROGRESS SLOWLY TOWARDS D/C GOALS. PATIENT HAS S.L. IN HIS LEFT FORARM. WILL CONTINUE TO MONITER.
--- NOTE | 2020-05-04 12:02 | EKG ---
[address] [place] [address] ELECTROCARDIOGRAM REPORT Name: SHAN PETERSEN Room #: 504-1 ADM IN M.R.#: [id number] Admission: 04/26/20 Attend Phys: Gary Sarabia MD Discharge: Date of : 56 Report #: [id number] [facility] Test Date: 2020-05-04 Test Time: 11:31:56 Pat Name: SHAN PETERSEN Department: Room: 504 Gender: M Technical Translator: RONAK : 1960 Requested By: Rose Marie Blackwell Order Number: [id number] MD: Vignesh Denson Measurements Intervals [place] Rate: 84 P: 55 UT: 173 QRS: 20 QRSD: 78 T: 52 QT: 356 QTc: 421 Interpretive Statements Sinus rhythmQ V1-2, old Baseline wander in lead(s) V5 Compared to ECG 05/01/2020 09:42:58 Sinus tachycardia no longer present Electronically Signed On 05-04-2020 12:02:18 [employer] by Vignesh Denson [email or web address] <ELECTRONICALLY SIGNED> By: Vignesh Denson MD, LOCATED WITHIN [facility] 05/04/20 1202 30 30 Vignesh Denson MD, LOCATED WITH[facility] /EPI
[2020-05-04 20:00] VITALS: BP 124/72
--- NOTE | 2020-05-05 03:45 | NUR ---
assumed care approx 1900 evening 05/04. pt lying in bed with head of bed elevated at change of shift. trach in place with shield on. pt with large amt white, cloudy secretions suctioned by RT and this technical document writer prn. pt voiding per urinal. pt NPO. peg tube in place with feeding infusing 60/hr. wound vac in place with little to no drainage in canister. meds crushed and given per peg without difficulty. pt appropriate and cooperative. continuous pulse oximeter in place with sats 92% and greater. pt with large bm in bedpan tonight. bed alarm on and call light in reach. will continue to monitor.
[2020-05-05 08:00] VITALS: BP 113/64
--- NOTE | 2020-05-05 10:42 | NUR ---
ASSUMED CARE AT 0700. SLEPT FAIRLY WELL. ALERT, NON VERBAL, TRACH WITH MASK AT 35% 10L 02. SUCTIONING PRN. TUBE FEEDING STOPPED AT 0800 THIS MORNING.TOLERATED FEEDING WITH MIN RESIDUAL. DENIES ANY PAIN. GIVEN HIS AM MEDS WITH BENEPROTEIN AND WATER FLUSHES. PARTICIPATING WITH FRANCISCA THERAPIES. PT ENC TO SIT ON THE CHAIR LONG TOLERATED AND PT IS COMPLIANT WITH REQUEST. USES URINAL AND DIURESING ADEQUATELY. 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 NO OTHER CONCERNS, WILL CONT TO MONITOR.
[2020-05-05 19:10] VITALS: BP 112/70
--- NOTE | 2020-05-06 01:33 | NUR ---
UP TO BSC WITH GAIT BELT AND ONE PERSON ASSIST TO HAVE LARGE BM. VOIDING PER URINAL. TOLERATING TUBE FEEDING AT 60 PER HOUR WITH WATER FLUSHES AND BENEPROTEIN EVERY 4 HOURS. WOUND VAC INTACT, FRESH OPTIFOAM BORDER TO LEFT BUTTOCK AFTER EDGE OBSERVED PEELING, MOVING, AND EXPOSING EDGE OF WOUND. MIDNIGHT BLOOD SUGAR = 144. SUCTIONING REQUESTED BY PATIENT AT 0050.
[2020-05-06 06:13] LABS: ALBUMIN 2.8 g/dL (3.4-5.0); CREATININE 0.7 mg/dL (0.7-1.3); MAGNESIUM 1.9 mg/dL (1.8-2.4); PHOSPHORUS 3.2 mg/dL (2.5-4.9); POTASSIUM 3.9 mmol/L (3.5-5.1); TOTAL BILIRUBIN 0.2 mg/dL (0.2-1.0); TOTAL PROTEIN 6.1 g/dL (6.4-8.2)
[2020-05-06 06:19] LABS: ABSOLUTE NEUTROPHILS 6.4 thou/uL (1.4-8.2); EOSINOPHILS 2.1 % (0.0-3.0); HEMATOCRIT 30.7 % (42.0-52.0); HEMOGLOBIN 9.9 gm/dL (14.0-18.0); LYMPHOCYTES 20.4 % (24.0-44.0); MCH 29.1 pg (26.0-34.0); MCHC 32.3 g/dL (28.0-37.0); MCV 90.2 fL (80.0-100.0); MONOCYTES 10.6 % (1.0-8.0); PLATELET COUNT 352 thou/uL (150-400); POLYS 65.9 % (36.0-66.0); RDW 14.9 % (10.5-14.5); WBC 9.7 thou/uL (4.0-11.0)
[2020-05-06 07:06] VITALS: BP 119/66
--- NOTE | 2020-05-06 12:39 | NUR ---
ASSUMED CARE AT 0700. SLEPT WELL. ALERT, NON VERBAL, ABLE TO MOUTH WORDS. TRACH MASK INTACT WITH 35% 10L 02. SUCTIONING PRN WITH THIN WHITE SECRETIONS. DENIES ANY PAIN FOR NOW. TOLERATED NOCTURNAL FEEDING WITH MIN RESIDUAL. ON 4HR H20 BOLUS WITH BENEPROTEIN GIVEN. DIURESING ADEQUATELY. HAD A LARGE BM LAST NIGHT AND A SMALL THIS MORNING. WOUND VAC TO R RIB CAGE AREA WITH SUCTIONING AND NO DRAINAGE. PT WALKED WITH PHY THERAPY AND SAT ALMOST AN HOUR IN THE WC. DR VOSS SAW PT AND ORDER FOR A REPEAT CXR.
[2020-05-06 19:01] VITALS: BP 94/63
--- NOTE | 2020-05-06 23:17 | NUR ---
PT ASSESSMENT COMPLETED AND VSS. MEDS GIVEN ORDERED VIA PEG TUBE. PT REMAINS NPO. TF/RESIDUAL CHECKS AND FLUSHES CONTINUE. 0 RESIDUAL. BENEPROTEIN GIVEN WITH FLUSHES. TRACH WNL. PRN SUCTION. ASST WITH REPOSITION FOR COMFORT. DSG ON LEFT BUTTOCK INTACT. PRAFO BOOTS ON. PRN PAIN MEDICATION HELPFUL FOR GENERALIZED PAIN. SLEEPING WELL. WILL CONTINUE TO MONITOR FREQUENTLY.
[2020-05-07 07:15] VITALS: BP 98/59
--- NOTE | 2020-05-07 10:19 | HC ---
[facility] [place] [address] CONSULTATION Name: SHAN PETERSEN Room #: 504-1 ADM IN M.R.#: [id number] Admission: 04/26/20 Attend Phys: Gary Sarabia MD Discharge: Date of : 56 Report #: [id number] THIS REPORT FOR: cc: Gary Wade David J. DO Deutch,Glenn Trimble. PhD ~ DATE OF SERVICE: 04/29/2020 BEHAVIORAL STATUS EXAM ATTENDING PHYSICIAN: Gary Sarabia MD SERVICES ACCOUNT MANAGER: Glenn Murphy, PhD CLINICAL PRESENTATION: The patient is a 60-year-old male admitted to [facility] for a comprehensive inpatient rehabilitation program. He has a past medical history that includes hypertension, hyperlipidemia, diabetes, history of tobacco and heavy alcohol use. He has recently been diagnosed with non-small cell carcinoma. He was admitted to the [facility] on 03/09/2020 and underwent a right thoracotomy, right lower lobectomy with lymph node dissection. The patient had developed AFib with RVR, Cardiology service consulted and involved in the management of medication. He underwent a tracheostomy on 04/04/2020 with PEG tube placement on 04/18/2020. The patient underwent an assessment for myasthenia gravis and a stroke workup that was unremarkable. Weakness, encephalopathy were attributed to alcohol withdrawal and prolonged intubation. Prior to this most recent admission to the hospital, the patient was living independently in his own home. He was independent with instrumental activities of daily living including driving. The patient is a high school graduate. 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 He has 2 children. The patient reported to have had excessive alcohol use approximately 12-15 beers every night. Tobacco use was also very high. While he has had no formal treatment for anxiety or depression, his son indicates longstanding issues with anxiety. TECHNIQUES UTILIZED: Clinical interview, review of medical records, staff consultation and behavioral observation, family interview -- son. EXAMINATION FINDINGS: The patient is reported to have had a period of severe confusion and disorientation approximately 2-3 weeks ago. Currently, his son indicates that the patient appears well oriented. Delirium has likely resolved. Current symptoms are reported to include difficulty with sleep, tiredness and fatigue along with anxiety and depression. He appears alert and was oriented [facility] [address] [place] [address] CONSULTATION Name: TRINITYSHAN Manuel Room #: [address] [place] [address] [place] [facility].#: [id number] Admission: 04/26/20 Attend Phys: Gary Sarabia MD Discharge: Date of : 56 Report #: [id number] and time. Reading comprehension was satisfactory. A formal assessment is very difficult given current tracheostomy placement. His mood appears despondent. He is not showing agitation or variability in mood currently. DIAGNOSTIC IMPRESSIONS: Delirium -- acute -- resolved. Neurocognitive disorder, likely due to anoxia/hypoxia -- extent to be determined. Adjustment disorder with anxiety and depressed mood. Alcohol use disorder-persistent Tobacco abuse disorder RECOMMENDATIONS: A followup neuropsychological assessment upon weaning of the trach will help clarify cognitive status. Continued psychiatric management of medication for mood/behavior as needed during his hospitalization. The patient will likely require increased supervision and structure upon his discharge home. Driving will require more thorough evaluation prior to resumption. The patient will likely require assistance in the management of medication, finances and nutrition until a more formal assessment of cognitive functioning can be completed. Continued use of speech therapy to assist with stimulation and utilization of compensatory strategies. Thank you very much for allowing me to provide the consultation on this patient. <ELECTRONICALLY SIGNED> By: Glenn Murphy, PhD 05/07/20 1019 [id number] [id number] Glenn Murphy, PhD /nt
--- NOTE | 2020-05-07 11:36 | NUR ---
ASSUMED CARE AT 0700. PATIENT IS ALERT AND ORIENTED X4.PATIENT CACERES'S, PATIENT ACCOUNTS MANAGER ARE EQUAL . LUNGS ARE COARSE AND DEMINISHED. PATIENT REMAINS ON RESPIRATORY TX AND 35% 02 TO HIS TRACH SHIELD. PATIENT CONTINUES TO BE SUCIONED PRN FOR THICK WHITE SECRETIONS FROM HIS TRACH. PATIENT HAS WOUND VAC TO HIS UPPER BACK AREA. PATIENT IS VOIDING TOMAS COLORED URINE PER URINAL. WOUND TO BOTTOM CHANGED ACCORDING . ANKLE PAINTED WITH BETADINE AND LEFT OPEN TO AIR. PATIENT HAS BOOTS ON. FALL AND SAFETY PROTOCOLS IN PLACE. DENIES PAIN AT THIS TIME. CONTINUES TO PROGRESS SLOWLY TOWARDS D/C GOALS. PATIENT HAS S.L. IN HIS LEFT FORARM. WILL CONTINUE TO MONITER.
--- NOTE | 2020-05-07 11:42 | NUR ---
PATIENT HAS G-TUBE IN PLACE. PATIENT GETS T.F. AT 4PM 2 IKER HN AT 60CC/HR. PATIENT GETS 300CC H20 FLUSHED WITH PROTEIN Q 4 HOURS. WILL CONTINUE TO MONITER.
--- NOTE | 2020-05-07 14:10 | NUR ---
Patient admits with pharynegeal abscess. Rec consult to notify patients employment that he will be off work. Rec a call from Gal in sx while patient in sx requesting casemgt call Jared Rios [phone] to notify his employment he is in hospital and will be out from work. Sp with Jared who rec email from patient as well. Patient will need a note for patient to "return to work." Both patient and are deaf. Communicated using tablet with interpretor. 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 Updated communicated with his employment and will need return to work notice. reports patient has apt on with PCP Dr Cely Ndiaye with [facility]. Patient to have thyroid checked. She questions if to keep apt. At this time advised to keep apt. Anticipate no dc needs except for letter. casemgt following.
[2020-05-07 20:23] VITALS: BP 118/64
--- NOTE | 2020-05-08 05:13 | NUR ---
PT ASSESSMENT COMPLETED AND VSS. MEDS GIVEN ORDERED AND WELL TOLERATED. FALL PRECAUTIONS IN PLACE. TRACH WNL. TF RUNNING/0 RESIDUALS/FLUSHES CONTINUE. ASST WITH REPOSITION FOR COMFORT. PRAFO BOOTS ON. SUCTION PROVIDED PRN. VOIDING LARGE AMOUNT OF DARK YELLOW URINE. SLEEPING WELL. WILL CONTINUE TO MONITOR FREQUENTLY.
[2020-05-08 08:00] VITALS: BP 121/75
--- NOTE | 2020-05-08 10:49 | NUR ---
ASSUMED CARE AT 0700. PATIENT IS ALERT AND ORIENTED X4. PATIENT CACERES'S, ARCHITECTURAL DESIGN PROFESSOR ARE EQUAL. LUNGS ARE COARSE AND DEMINISHED. PATIENT HAS TRACH IN PLACE AND RECIEVES RESPIRATORY TX. PATIENT CONTINUES TO BE SUCTIONED NEEDED FOR CLEAR TO THICK WHITE SECRETIONS. ABD IS SOFT WITH BSX4. PATIENT HAS PEG TUBE IN PLACE AND CONTINUES ON T.F. AT 60CC/HR AT 4PM TO 8AM DAILY. PATIENT CONTINUES ON WATER BOLUSES OF 300CC WITH 1 PACKET OF PROTEIN POWDER. PATIENT WOUND VAC D/C'D. TRANSPARENT DRESSING ON AND INTACT. OPTIFOAM TO COCCYX AREA . LEFT ANKLE CLEANED WITH BETADINE AND IS OPEN TO AIR. PATIENT IS VOIDING PER URINAL TOMAS COLORED URINE. FALL AND SAFETY PROTOCOLS IN PLACE. DENIES PAIN AT THIS TIME. CONTINUES TO PROGRESS TOWARDS D/C GOALS. WILL CONTINUE TO MONITER.
--- NOTE | 2020-05-08 12:34 | NUR ---
REHAB TEAM CONFERENCE: PT ADMITTED TO ARU FOR CIM. PT HAS TRACH. ST RECOMMENDS TRACH "BE DOWNSIZED." PT MAKING PROGRESS. GAIT 175FT W/FWW AND MOD-MAX ASSIST D/T KNEE INSTABILITY. PER ST, MOD MEMORY DEFICIT AND MILD TO MOD COGNITIVE DEFICIT. D/C PLAN IS T RE-TEAM.
--- NOTE | 2020-05-08 13:03 | NUR ---
WOUND F/U; THE BRUISE TO THE RIGHT PLANTAR FOOT HAS NOT ADVANCED. THEREFORE, I WILL CALL THIS HEALED. THE ONLY REMAINING WOUND IS TO THE LEFT BUTTOCK. THE WOUND IS PROGRESSING. NO S/S OF INFECTION. THE WOUND IS IMPROVED AT LEAST 10% SINCE LAST ASSESSMENT. WE ARE CURRENTLY USING THERAHONEY AND A BORDER FOAM. RECOMMENDATIONS; NO CHANGES. DISCUSSED WITH EDGARDO
[2020-05-08 19:20] VITALS: BP 113/59
--- NOTE | 2020-05-09 03:39 | NUR ---
SUCTIONED WITH AIDENAUER WHEN COUGHING MODERATELY THICK WHITE SPUTUM FROM TRAECH. HUMIDIFIED O2 THRU TRAECH SHIELD. TUBE FEEDING AT 60 CC PER HOUR WITH 325 WATER AND PACKAGE OF BENEPROTEIN EVERY 4 HOURS. USING URINAL
[2020-05-09 08:00] VITALS: BP 111/69
--- NOTE | 2020-05-09 11:07 | NUR ---
ASSUMED CARE AT 0700. PT IS ALERT AND AWARE OF SURROUNDING AND FOLLOW COMMANDS WELL. NON VERBAL D/T TRACH INSITU. ON TRACH MASK WITH 10L 002. SUCTIONING PRN WITH THICK BEIGE COLORED SPUTUM. PT FEEDING STOPPED AT 0830. NO RESIDUAL. HE TOLERATED HIS MEDS AND WATER FLUSHES WELL. DENIES ANY PAIN. PT IS UP WITH WALKER AND IS SITTING ON THE RECLINER. PARTICIPATING WITH THERAPY AND PROGRESSING WELL. ACCUCHECKS DONE WITH INSULIN AND METFORMIN GIVEN. ALSO RECEIVED A CAN OF 2CAL HN BOLUS, TOLERATED WELL. WOUND CARE DONE ORDERED. WILL CONT TO MONITOR.
--- NOTE | 2020-05-09 13:42 | NUR ---
MORAIMA placed call to Angel in HR at [employer] ( ) to determine if pt has short-term disability. Pt does have short-term disability and a claim needs to be filed. Angel states she will work on the employer portion. Pt/family will need to complete ppwk, as well as a physician. MORAIMA spoke with pt's son, Jagdish, via phone to provide update and discuss need to complete ppwk. Jagdish will be at [facility] later this afternoon and will work on ppwk with pt. MORAIMA met with pt to notify as well. Ppwk left in room. MORAIMA provided ppwk to hospitalist PRE SALES TECHNICAL ENGINEER. Once all documentation has been completed and faxed to [employer], it will take 5-7 days for determination to be made. MORAIMA is following to assist as needed with discharge planning.
[2020-05-09 19:00] VITALS: BP 113/62
--- NOTE | 2020-05-10 00:19 | NUR ---
PT ALERT AND ORIENTED X 4. TRACH INTACT. SUCTIONED BY RT THIS EVENING. COUGH PRODUCTIVE OF WHITE SPUTUM. PEG TUBE PATENT. KAYLEE FEEDINGS WELL. FLUSHED Q4H WITH WATER ORDERED. NO RESIDUALS. PT C/O PAIN IN HIS LEGS. HYDROCODONE GIVEN AT HS PER PT REQUEST. VOIDING LARGE AMTS CLEAR YELLOW URINE PER URINAL. CONT PULSE OX ON. SAT'S IN HIGH 90'S. BED ALARM ON FOR SAFETY. PT CHECKED ON HOURLY ROUNDS.
[2020-05-10 08:00] VITALS: BP 108/64
--- NOTE | 2020-05-10 10:18 | NUR ---
ASSUMED CARE AT 0700. PT SLEPT FAIRLY WELL. RECEIVED HYDROCODONE FOR LE DISCOMFORT LAST NIGHT. ALERT, ABLE TO MOUTH WORDS. TRACH INTACT WITH MASK AT 35% 10L 02. SUCTIONING PRN. DENIES ANY PAIN. LAST BM ON 05/06. TOLERATING NOCTURNAL TUBE FEEDING WITH MIN RESIDUAL. HE RECEIVED ONE BOLUS CAN YESTERDAY AND COMPLAINED OF FEELING INDIGESTION, NO COMPLAINS OF NAUSEA. WOUND CARE TO R POSTERIOR CHEST, COCCYX AND R ANKLE DONE. DIURESING ADEQUATELY. PARTICIPATING IN SCHEDULED THERAPIES. PLAN FOR DOWNSIZING HIS TRACH SHILLEY THIS WEEK. NO OTHER CONCERNS, CONT TO MONITOR.
--- NOTE | 2020-05-10 10:48 | NUR ---
TRACI SPK W/MIKE IN [facility] HR TO GATHER MORE INFO RE ST DISABILITY. PER MIKE, IF PT IS APPROVED FOR ST DISABILITY, HE WILL RECEIVE A MONETARY BENEFIT, AND PT "SHOULD" RECEIVE RETRO-PAY. 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 TRACI SPK TO PT'S SON AND EXPLAINED THIS AT A HIGH-LEVEL; HOWEVER, TRACI ADVISED JANEEN TO CALL MIKE W/ PT ON PHONE SO SHE CAN DISCUSS THIS IN DETAIL. JANEEN HAD AGREED. TRACI TO CONT TO FOLLOW.
[2020-05-10 19:21] VITALS: BP 109/67
--- NOTE | 2020-05-11 02:09 | NUR ---
ASSESSMENT: PT REMAIN ALERT AND ORIENT TIMES THREE. C/O PAIN IN GREG LE. PRN HYDROCODONE GIVEN WITH GOOD RELIEF. PT SLEEPING POST PAIN MED. MINIMAL SUCTIONING PER TRACH AND ORALLY. WHITISH SECRETIONS NOTED. VSS, AFEBRILE. DRESSING C/D/I. SLOW PROGRESS, WILL CONTINUE TO MONITOR
[2020-05-11 05:59] LABS: ABSOLUTE NEUTROPHILS 4.3 thou/uL (1.4-8.2); BASOPHILS 1.4 % (0.0-2.0); HEMATOCRIT 31.8 % (42.0-52.0); HEMOGLOBIN 10.4 gm/dL (14.0-18.0); LYMPHOCYTES 27.1 % (24.0-44.0); MCH 29.2 pg (26.0-34.0); MCHC 32.5 g/dL (28.0-37.0); MCV 89.9 fL (80.0-100.0); PLATELET COUNT 355 thou/uL (150-400); POLYS 56.5 % (36.0-66.0); RBC 3.54 mil/uL (4.50-6.00); RDW 14.8 % (10.5-14.5); WBC 7.7 thou/uL (4.0-11.0)
[2020-05-11 06:06] LABS: CALCIUM 9.5 mg/dL (8.5-10.1); CREATININE 0.6 mg/dL (0.7-1.3); MAGNESIUM 1.9 mg/dL (1.8-2.4); POTASSIUM 4.1 mmol/L (3.5-5.1)
[2020-05-11 07:52] VITALS: BP 109/69
--- NOTE | 2020-05-11 13:03 | NUR ---
ASSUMED CARE OF PT. THIS MORNING. PT. LYING IN BED. COOPERATIVE WITH VITAL AND ASSESSMENT. VSS, NO ABNORMAL ASSESSMENT NOTED. PT. HAS TRACH. IN PLACE. DR. JACKSON HERE TO CHANGE TO A SMALLER SIZE. PT. COOPERATIVE WITH THIS. RESPIRATORY NOTIFIED OF DR. JACKSON ARRIVAL ON THE UNIT. FEEDING STOPPED AT 0800. TUBE FLUSHED WITH WATER. MEDICATIONS CRUSHED AND GIVEN TO PT. IN STOMACH TUBE. STOMACH TUBE PATENT. HE IS A & OX4. HE GETS A BLOOD SUGAR Q 6 HOURS. AT 1200 IT WAS 144. NO INSULIN GIVEN.
--- NOTE | 2020-05-11 16:10 | NUR ---
MORAIMA faxed completed short term disability ppwk from pt and attending physician to [employer] ( ). Received confirmation. MORAIMA placed call to customer service: [phone] to follow up. On hold for 35 minutes. No answer or option to leave voice message to confirm info was received. MORAIMA is following to assist as needed.
[2020-05-11 20:00] VITALS: BP 92/43
[2020-05-11 21:18] VITALS: BP 101/52
--- NOTE | 2020-05-12 04:22 | NUR ---
assumed care approx 0 evening 05/11. pt lying in bed with head of bed elevated dozing off and on. trach in place with continuous pulse oximeter with sats 92% and greater. pt voiding per urinal. pt NPO. peg tube in place with tube feeding continuous at night 60/hr. pt suctioned twice so far this night and trach care done prn. bed alarm on and call light in reach. will continue to monitor.
[2020-05-12 07:15] VITALS: BP 103/65
--- NOTE | 2020-05-12 11:20 | NUR ---
ASSUMED CARE AT 0700. SLEPT FAIRLY WELL. ALERT, NON VERBAL RELATED TO TRACH INSITU, INNER CANNULA DOWNSIZED YESTERDAY. SUCTIONING DONE PRN WITH THICK BEIGE/WHITE SPUTUM. ON TRACH MASK AT 35% AT 10L. DENIES ANY PAIN. ABLE TO MAKE NEEDS KNOWN. DRESSING TO BACK AND SACRUM INTACT AND ORDERS TO CHANGE MWF/PRN. TOLERATING PEG TUBE FEEDING AND STOPPED AT 0830. NO RESIDUAL. MEDS GIVEN VIA PEG TUBE. PT STILL HAS NO BM SINCE 05/06, CURRENTLY ON MIRALAX BID. BOWEL SOUNDS PRESENT, ABDOMEN SOFT. DR MCDONOUGH NOTIFIED, WILL ORDER COLACE AND DULCOLAX BOWEL SOUNDS PRESENT, ABDOMEN SOFT. DR MCDONOUGH NOTIFIED, TO ORDER COLACE AND DULCOLAX SUPP. WORKED WITH OT TODAY, SAT AT THE SIDE OF THE BED. CALL LIGHT WITHIN REACH.
[2020-05-12 19:24] VITALS: BP 118/62
--- NOTE | 2020-05-13 03:32 | NUR ---
assumed care approx 1900 evening 05/12. pt lying in bed with head of bed elevated at change of shift dozing off and on. trach in place intact and pt suctioned prn tolerating well. continuous pulse oximeter on with sats within normal limits. pt NPO. meds crushed and given in peg tube. tube feeding infusing at 60/hr. pt appears to be sleeping soundly with hourly rounding checks. bed alarm on and call light in reach. will continue to monitor.
[2020-05-13 09:07] VITALS: BP 105/65
--- NOTE | 2020-05-13 10:12 | NUR ---
ASSUMED CARE AT 0700. PT SLEPT WELL, HAD A HYDROCODONE FOR GENERALIZED ACHES. THIS MORNING, DENIES ANY PAIN. ALERT, NON VERBAL DUE TO TRACH INSITU. ABLE TO VOICE NEEDS. SUCTIONING PRN WITH MEDIUM LOOSE BEIGE/WHITE SECRETIONS. SAT 99-100% ON CONT PULSE 02. NOCTURNAL FEEDING STOPPED AT 0830. NO RESIDUAL, TOLERATED AM MEDS WITHOUT DIFFICULTY. SCOPOLAMINE PATCH APPLIED TO BEHIND R EAR. LUNGS SOUND COARSE AND DIM AT THE BASES, CLEARS AFTER SUCTIONING. HAD A LARGE LOOSE BM ON 05/12. DIURESING ADEQUATELY. CONT TO MONITOR.
[2020-05-13 19:00] VITALS: BP 129/78
--- NOTE | 2020-05-13 23:27 | NUR ---
PATIENT HAS BEEN BEEN PLEASANT AND COOPERATIVE. INTER TRACH CHANGED BY RT TONIGHT. PATIENT GIVEN HYDROCODONE AT 2140 TONITE FOR THROAT PAIN. PATIENT HAS CONTINUOUS TUBE FEEDING GOING AT 60CC/HR. WATER FLUSHES BEING DONE WITH 325ML Q4H. PATIENT HAD MEDS AND BENEPROTEIN CRUSHED IN WATER THRU TUBE AT HS. PT TOLERATED WELL. VSS. BUTTOCK DRESSING DRY AND INTACT. RIGHT ANKLE/FOOT WOUNDS DRY AND INTACT AND KATELYNN ON OTHERS. PATIENT APPEARS TO BE A/0X4. HE SAT UP IN BED AND WATCHED CHIEFS FB. OXYGEN ON AT 10L ATTACHED TO TRACH. BED IN LOW POSITION AND BED ALARM IS ON. CONTINUING TO MONITOR.
--- NOTE | 2020-05-14 01:40 | NUR ---
PATIENT COUGHING AND SUCTIONING WAS DONE BY EDGARDO LYNN. MODERATE AMOUNT OF WHITE THICK SPUTUM WAS EXPELLED THRU SUCTION. PATIENT BACK TO SLEEP AFTERWARDS. RESPIRATIONS EVEN AND UNLABORED. CONTINUING TO MONITOR.
--- NOTE | 2020-05-14 02:04 | NUR ---
PATIENT'S PEG TUBE PAUSED AND CHECKED FOR RESIDUAL, WHICH WAS ZERO. HYDRATED PATIENT THRU PEG TUBE WITH 325CC WATER WITH ONE PACKET OF BENEPROTEIN IN IT. TUBE IS OPEN AND PATENT. FLUSHED WITH 60CC OF CLEAR WATER. PATIENT SLEEPING.
[2020-05-14 06:11] LABS: CALCIUM 9.4 mg/dL (8.5-10.1); CREATININE 0.5 mg/dL (0.7-1.3); POTASSIUM 4.2 mmol/L (3.5-5.1)
[2020-05-14 08:05] VITALS: BP 107/57
--- NOTE | 2020-05-14 10:14 | NUR ---
WOUND CARE F/U; THIS INDIVIDUAL IS RAPIDLY IMPROVING. THE ONLY WOUND THAT REMAINS IS A LEFT BUTTOCK RESOLVING PRESSURE INJURY. THE RN TODAY HAS ALREADY COMPLETED WOUND CARE AND DISCUSSED HER ASSESSMENT WITH ME. NO CHANGES AT THIS TIME. DISCUSSED WITH RN TODAY.
[2020-05-14 11:35] LABS: HEMATOCRIT 33.7 % (42.0-52.0); HEMOGLOBIN 10.9 gm/dL (14.0-18.0); MCH 29.5 pg (26.0-34.0); MCHC 32.5 g/dL (28.0-37.0); RBC 3.71 mil/uL (4.50-6.00); RDW 15.1 % (10.5-14.5); WBC 9.4 thou/uL (4.0-11.0)
--- NOTE | 2020-05-14 13:25 | NUR ---
PT TOLERATED THERAPIES THIS AM VERY WELL. SHOWERED, THEN DRESSINGS CHANGED TO UPPER RT BACK AND LEFT BUTTOCK. BOTH AREAS HEALING WELL. BACK INCISIONAL WOUND IS HEALING WITH BEEFY RED GRANULATION TISSUE AND MINIMAL SEROSANGUINOUS DRAINAGE. AQUACEL DRESSING HAD DISLODGED AND WAS NO LONGER COVERING THE WOUND, SO THIS WAS REPLACED FOLLOWING CLEANSING. LEFT BUTTOCK WOUND HEALING VERY WELL WITH APPROX 2X1CM GRANULATION TISSUE AND VERY SMALL YELLOW AREA AT THE CENTER. AREA CLEANSED AND MEDIHONEY APPLIED, COVERED WITH MEPILEX BORDER DRESSING. 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 PT HAD TRACHE CARE THIS AM, AND HAS BEEN SUCTIONED X2 THIS AM. NO RESIDUALS WITH PEG FLUSHES Q 4 H, AND PT TOLERATING BENEPROTIEN WELL. PT CURRENTLY UP OOB WALKING WITH THERAPY.
--- NOTE | 2020-05-14 14:58 | NUR ---
TRACI G[facility] REP TO CONFIRM RECEIPT DISABILITY PAPERWORK. PER REP, FORMS HAVE NOT BEEN "UPLOADED INTO THE SYSTEM...IT TAKES TWO BUSINESS DAYS...THURSDAY THE LATEST." TRACI ASTUDILLO W/PT SON JANEEN TO UPDATE HIM AND TOLD HIM A COPY OF THE THE PAPERWORK WAS LEFT IN PT ROOM. TRACI EXPLAINED THIS TO PT, WHO SMILED PLEASANTLY AND NODDED IN AGREEMENT. TRACI LFT A SECOND COPY IN PT'S CHART. CERTIFIED MEDICAL CODER, JUSTA, ALSO NOTIFIED. TRACI TO CONT TO FOLLOW.
[2020-05-14 19:15] VITALS: BP 119/70
--- NOTE | 2020-05-15 00:19 | NUR ---
PATIENT HAS BEEN RESTING IN BED THIS EVENING. PATIENT HAS TRACH IN AND CARES GIVEN. PATIENT SUCTIONED PRN. PATIENT WAS ASSISTED TO THE BATHROOM ONCE THIS EVENING AND HAD LARGE AMOUNT OF BROWN LIQUID STOOL. 02 SAT HAS BEEN AVERAGING 98% TONIGHT. PATIENT HAS TUBE FEEDING AT 60CC/HR GOING TILL 0800 THIS MORNING. HE IS GETTING 325ML WATER FLUSHES WITH BENEPROTEIN. HIS MEDS HAVE BEEN CRUSHED AND ADDED TO WATER AND GIVEN PER PEG TUBE. PATIENT IS NPO. 02 TO TRACH SET AT 10L 02. 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 TEMP WAS 99.1 EARLY EVENING. PATIENT ASKED FOR FAN TO BE TURNED ON. PATIENT UNABLE TO VOICE CONCERNS BUT DOES USE CALL LIGHT, AND MOUTHS WORDS AND SHAKES HEAD APPROPRIATELY TO ANSWER AND CAN WRITE ON PAPER NEEDED. PATIENT HAS BEEN CALM AND COOPERATIVE AND APPROPRIATE. HE IS A/0X4. PATIENT DENIES PAIN. DRESSING AT COCCYX AND SACRUM AREA DRY AND INTACT. BED IS LOW AIRLOSS MATTRESS. BED IN LOW POSITION AND BED ALARM IS ON. VSS. ROUTINE ROUNDING TO ASSESS SAFETY AND STATUS OF PATIENT. CONTINUING TO MONITOR.
--- NOTE | 2020-05-15 02:18 | NUR ---
PATIENT'S PEG TUBE FLUSHED WITH 325ML H20 WITH BENEPROTEIN + 50CC PLAIN WATER. CHECKED FOR RESIDUAL FIRST AND THERE WAS 0 RESIDUAL. HOB UP 40 DEGREES FOR FLUSHING. PT TOLERATED WELL. PATIENT DENIES PAIN. 02 SAT AT 100% AND PULSE 90. PATIENT BACK TO SLEEP. CONTINUING TO MONITOR.
[2020-05-15 07:15] VITALS: BP 114/70
--- NOTE | 2020-05-15 13:04 | NUR ---
Nutrition: REC trial transition tube feeds to full bolus regimen. Needs 5 cans 2 Kai HN daily with 325 mL H20 flush q 4 hrs with beneprotein added.
--- NOTE | 2020-05-15 18:44 | NUR ---
Alert and orientated X4. Nonverbal d/t trach but does mouth words and occassionally cover trach. Calm, cooperative and compliant. Reg even spontaneous resp without nasal flaring or retraction. FIO2 10 L per humidified trach collar. 6.0 Shiley trach with healed trachestomy, slight erythema. Breath sounds clear. Sxing thick clear with 14Fr cathetar. Strong cough. Trach care done. O2 sats 99-100%. Reg HR auscultated. Color pink with brisk capillary refill and palpable peripheral pulses. Yellow urine per urinal. Active bowel sounds over soft rounded abdomen. Instilling water and formula per GT, flushes without diff. Site without s/o infection. Son at bedside late in day.
[2020-05-15 19:24] VITALS: BP 90/56
--- NOTE | 2020-05-16 02:50 | NUR ---
ASSESSED AT START OF SHIFT. PT RESTING IN BED. MEDS CRUSHED GIVEN VIA TUBE. URINAL AT BEDSIDE. Q6 BLOOD SUGAR CHECKED AND INSULIN ADMINISTERED. WATER FLUSHES GIVEN WITH BENZOPROTEIN.TUBE FEEDING INFUISING. TRACHEA SUCTIONED. FALL PREC IN PLACE. CALL LIGHT AT REACH WILL CONT TO MONITOR.
[2020-05-16 07:20] VITALS: BP 97/58
--- NOTE | 2020-05-16 13:17 | NUR ---
Team conference held yesterday. Update given to pt's on son Jagdish. He notes that they are planning on the pt going home with him and his at [place]. They also have an adult child (pt's nancy) who lives there so they would have lots of supervision and support. Jagdish and his both are working from home and are open to any teaching for trach/peg care. They have 5 steps with a railing to enter their home and the pt will be staying in the master bedroom/bath on the main level. He is aware that pulm plans for 4-6mos more months with the trach. ST is working with the pt on trialing a PMV for speaking and well as possible capping his trach (per pulm) if he can tolerate it. His trach was downsized to a #6 uncuffed. He is having thicker secretions and needs suction throughout the day. He is walking with PT 200' with FWW CGA, SBA for tx, SBA for adl's. The goal for this next week is to start working on self care of trach/suction/peg-bolus feedings and continued emphasis on independence. The pt will need a FWW, enteral formula and supplies, trach supplies 02/suction/humidification at ne. Will need to check with the pt's insurance plan to see which providers are in network for these things as well as HH. Would recommend all therapies, nursing and RT for HH f/u. Reteam next Monday 05/22. Son states all his std and ltd is going smoothly. All parties are hoping the pt will not need to apply for permanent disability per SS and that he can return to work with in a year. Will follow.
--- NOTE | 2020-05-16 14:34 | NUR ---
WOUND CARE F/U; THE LEFT BUTTOCK WOUND IS ALMOST HEALED. NO S/S OF INFECTION. THIS WOUND IS RESPONDING WELL. RECOMMEDNATIONS; D/C PETRA, USE ONLY A BORDER FOAM, CHANGE M/W/F. DISCUSSED WITH EDGARDO
--- NOTE | 2020-05-16 15:35 | NUR ---
RN ASSUMED PT'S CARE AT 0700AM, PT IS ON TRACH MASK O2 35% TO REACH O2SAT 93-98%, PT'S VS ARE STABLE, BUT WE STILL NEED SUCTION , PT IS TOLERATED TUBE FEEDING, PT GETS UP TO W/C WITH ASSIST,PT IS A&OX3, PT CAN FOLLOW ALL COMMANDS, PT DENIES PAIN AND SOB AT THIS TIME.
--- NOTE | 2020-05-16 15:48 | NUR ---
RN HAS CALLED ENT CONSULT PRACHI FOR THIS PT, DR VELARDE WILL SEE TODAY .
[2020-05-16 19:42] VITALS: BP 93/78
--- NOTE | 2020-05-16 23:53 | NUR ---
05-16-20 CARE TRANSFERRED 1914. PT AAOX4, VSS, TRACH MASK 02 35% WITH GOAL OF 93-98%, PT TOLERATED SUCTION OF TRACH WELL, DRESSING INTACT. PT PEG TUBE RUNNING AT 50ML AND PT TOLERATED MEDICATION ADMIN WELL WITH 325ML FLUSH. PT REPORTS PAIN AND PAIN MANAGED WITH PRN MEDICATION. PT HAS BEEN CALM AND COOPERATIVE AND CAN COMMUNICATE BY MOUTHING WORDS, OR WRITING ON PAD. ZERO S/S OF ACUTE DISTRESS NOTED, PT WILL CONTINUE TO BE MONITOIR.
--- NOTE | 2020-05-17 14:46 | NUR ---
NON-VERBAL D/T TRACH AND CONTINUES TO HAVE THICK SECRETIONS REQUIRING SUCTIONING X 2 SO FAR THIS SHIFT-02 SAT RANGING FROM 98-92 MONITORED CONSTANTLY PER BEDSIDE-TUBE FEEDINGS PER ORDER AND ALL MEDS VIA PEG TUBE-NORCO 10/325 GIVEN VIA PEG AT APPROX 1015 THIS AM FOR NOTED FACIAL GRIMACING,AND AFFIRMATION BY NODDING HEAD WITH AM MED PASS-DOES APPEAR TO BE RESTING COMFORTABLY AFTER ADMINISTRATION. ABLE TO COMMUNICATE NEEDS VIA WRITING OR GESTURES-TRANSFERS WITH SBA X 1-2-VOIDING PER URINAL. VS STABLE,
[2020-05-17 19:26] VITALS: BP 115/69
--- NOTE | 2020-05-18 02:14 | NUR ---
PT CARE ASSUMED WITH PT IN BED WATCHING TV.PT IS A/O X4.PT COMMUNICATE BY GESTURE AND HAS A TRACH IN PLACE.PT ALSO HAS PEG TUBE IN PLACE FOR FEEDING AND MEDICATION ADMINISTRATION.PT IS ACCUCHECK Q6 WITH SSI.PT HAD NORCO FOR PAIN MANAGEMENT.PT UP WITH X1 ASSIST TO BSC.WILL CONTINUE TO MONITOR POC
--- NOTE | 2020-05-18 14:26 | NUR ---
MORAIMA faxed face sheet to [facility] [place] to determine if they are in-network with pt's insurance for O2, trach supplies and enteral feeding supplies. MORAIMA notified [facility] [place] liaison of referral. Team conference will be held on Thursday. MORAIMA is following to assist as needed with discharge planning.
--- NOTE | 2020-05-18 17:29 | NUR ---
ASSUMED CARE AT 0700. SLEPT FAIRLY WELL, RECEIVED HYDROCODONE LAST NIGHT FOR GEN PAIN. ALERT, NON VERBAL DUE TO TRACH, ABLE TO MOUTH WORDS AND MAKE NEEDS KNOWN. DENIES ANY PAIN. UP WITH X 1 ASSIST WITH WALKER. COMPLAINED OF SHORT OF AIR AFTER SHOWER, RT CHANGED INNER CANNULA AND SUCTIONING DONE, SAT IS 100% AND PT REPORTED FEELING MUCH BETTER. TOLERATING NOCTURNAL FEEDING WITH MIN RESIDUAL. DIURESING WELL. HAD A LARGE LOOSE BM TODAY. PARTICIPATED WITH THERAPY. WOUND CARE DONE TO L BUTTOCK, HEALING APPROPRIATELY. CONT TO MONITOR.
[2020-05-18 19:50] VITALS: BP 113/69
--- NOTE | 2020-05-19 01:41 | NUR ---
DECLINES OFFERS TO TURN TO SIDE, LOW AIR LOSS MATTRESS CONTINUES. MINIMAL RESIDUAL WHEN PEG TUBE CHECKED WHEN GIVEN 325 CC FREE WATER AND PACKAGE OF BENEPROTEIN EVERY 4 HOURS DURING OVERNIGHT TWOCAL FEEDING AT 60 CC PER HOUR. SUCTIONED TWICE PER TRAECH SO FAR THIS SHIFT. USING URINAL WITHOUT ASSIST.
[2020-05-19 08:00] VITALS: BP 109/73
--- NOTE | 2020-05-19 14:45 | NUR ---
PATIENT HAS BEEN QUITE PLEASANT TODAY. NO COMPLAINT OF PAIN. HE HAS BEEN QUITE WET IN HIS TRACH. SUCTIONED AND KEPT CLEAN AND DRY. HE WAS UP WITH THERAPY AND SEEMS TO DO WELL HE COULD. NOW RESTING IN BED. WILL CONT WITH PLAN OF CARE.
[2020-05-19 20:00] VITALS: BP 90/52
--- NOTE | 2020-05-20 01:58 | NUR ---
ASSESSMENT: PT REMAIN ALERT AND ORIENT TIMES FOUR. TRACH INTACT AND PATENT. MODERATED SUCTIONING WITH THICK TANNISH SECRETIONS. PT ABLE TO MOUTH WORDS AND GESTURE TO LET NEEDS BE KNOWN. VSS, AFEBRILE. PEG TUBE INTACT AND PATENT. TF INFUSING WITHOUT DIFFICULTY. MEDS PER PEG WITHOUT DIFFICULTY. PT RECEIVED 3 UNITS OF LISPRO AT MN FOR BS = 156. LEFT BUTTOCK WOUND HEALING SLOWLY. UNEVENTFUL EVENING. SLOW BUT CONTINUAL PROGRESS TOWARDS DC GOALS. WILL CONTINUE TO MONITOR.
[2020-05-20 07:52] VITALS: BP 96/56
--- NOTE | 2020-05-20 14:00 | NUR ---
ASSUMED CARE AT 0700. SLEPT FAIRLY WELL, RECEIVED HYDROCODONE LAST NIGHT. ALERT, NON VERBAL DUE TO TRACH IN SITU. ON TRACH SHIELD . SUCTIONING PRN WITH MIN THICK WHITISH SECRETION. NPO, TOLERATED TUBE FEEDING WITH MIN RESIDUAL. UP WITH SBA WITH WALKER. PARTICIPATED WITH PHY THERAPY. REFUSED MIRALAX TODAY. HAD A BM YESTERDAY. DENIES ANY PAIN.
[2020-05-20 19:12] VITALS: BP 124/72
--- NOTE | 2020-05-21 01:44 | NUR ---
PATIENT IS A/0X4. HE HAS BEEN ON BEDREST ALL NIGHT. HE HAS A [place] #[address] WITH MEDICAL AIR AT 1. NO 02. PATIENT'S TF IS AT 60CC/HR AND WAS STARTED AT 1600 AND IS STOPPED AT 0800. PT IS TOLERATING WELL. HIS ACCUCHECK AT MIDNIGHT WAS 152 AND LISPRO 3U WAS GIVEN. PATIENT IS GETTING H20 FLUSHES OF 325CC EVERY 4 HOURS WITH BENEPROTEIN. PATIENT HAS NO RESIDUAL SO FAR TONIGHT. MEDS GIVEN THRU PEG TUBE. VSS. HYDROCODONE GIVEN TO PT CRUSHED AND THROUGH PT FOR BLE/LOW BACK PAIN AND THROAT PAIN. PATIENT HAS OPTIFORM DRESSING TO BUTTOCKS WHICH IS DRY AND INTACT. PATIENT IS ASSIST X 1-2 FOR TRANSFERS TO BATHROOM FOR BM'S. HE HAS NOT HAD ONE TODAY OR YESTERDAY. PT IS SUCTIONED PRN. HIS 02 SATS ARE RUNNING 98%. ROUTINE ROUNDS TO ASSESS SAFETY AND STATUS OF PATIENT.
[2020-05-21 05:52] LABS: ABSOLUTE NEUTROPHILS 4.3 thou/uL (1.4-8.2); BASOPHILS 1.5 % (0.0-2.0); EOSINOPHILS 3.5 % (0.0-3.0); HEMATOCRIT 34.8 % (42.0-52.0); HEMOGLOBIN 11.3 gm/dL (14.0-18.0); LYMPHOCYTES 28.4 % (24.0-44.0); MCH 29.1 pg (26.0-34.0); MCHC 32.4 g/dL (28.0-37.0); MONOCYTES 12.7 % (1.0-8.0); PLATELET COUNT 320 thou/uL (150-400); POLYS 53.9 % (36.0-66.0); RBC 3.86 mil/uL (4.50-6.00); RDW 14.7 % (10.5-14.5); WBC 8.1 thou/uL (4.0-11.0)
[2020-05-21 06:14] LABS: CALCIUM 9.5 mg/dL (8.5-10.1); CREATININE 0.7 mg/dL (0.7-1.3); MAGNESIUM 2.1 mg/dL (1.8-2.4); POTASSIUM 4.6 mmol/L (3.5-5.1)
[2020-05-21 07:58] VITALS: BP 112/60
--- NOTE | 2020-05-21 13:03 | NUR ---
WOUND CARE DISCHARGE NOTE; THE WOUND TO THE LEFT BUTTOCK IS HEALED. THE PATIENT IS WELL VERSED IN OFFLOADING TECHNIQUES AND MY OPINION IS HE WILL DO WELL. RECOMMENDATIONS; D/C WOUND CARE. DISCUSSED WITH STAFF
--- NOTE | 2020-05-21 15:50 | NUR ---
MORAIMA received call from [facility] stating they are in network with pt's insurance for home trach/O2 supplies. Will need more updates closer to discharge regarding trach size and supplies needed. MORAIMA faxed face sheet and clinical info to [facility] Enteral feeding dept. Notified Adele of new referral. Pt's insurance to be verified for peg/tube feeding supplies. Team conference to be held tomorrow. MORAIMA is following to assist as needed with discharge planning.
--- NOTE | 2020-05-21 16:23 | NUR ---
ASSUMED CARE AT 0700. SLEPT FAIRLY WELL. ALERT AND ORIENTATED, NON VERBAL R/T TRACH. PT IS ON MEDICAL RA ATTACHED TO HIS TRACH SHEILD, PT SATS 99-100%. PT HAS BEEN TOLERATING WELL. SUCTIONING DONE PRN, HAS MOD BEIGE THICK SPUTUM. TOLERATED NOCTURNAL TUBE FEEDING WITH MIN RESIDUAL. DENIES ANY PAIN. TAUGHT PT TO DO TUBE FEEDING THIS AFTERNOON, PT WAS ABLE TO DEMONSTRATE TECHNIQUE. PARTICIPATED WITH THERAPIES. WALKED WITHOUT HIS 02 AND TOLERATED ACTIVITY WELL WITH 02 CHECKED. NO SIGN OF DISTRESS. PT REFUSED MIRALAX. HAD A LARGE LOOSE BM TODAY. WOUND CARE DONE TO SACRAL, WOUND HEALING AND DRY.
[2020-05-21 19:34] VITALS: BP 102/67
--- NOTE | 2020-05-22 06:00 | NUR ---
SLIDING SCALE INSULIN 3 UNITS FOR GLUCOSE OF 170, TUBE FEEDING CONTINUES AT 60 CC AN HOUR OVERNIGHT. MOISTURE BARRIER TO BUTTOCK WOUND, PATIENT DECLINES OFFERS TO POSITION ON SIDE. SUCTIONED TWICE OVERNIGHT FOR CLEAR WHITE SPUTUM. VOIDING PER URINAL.
[2020-05-22 07:15] VITALS: BP 117/71
--- NOTE | 2020-05-22 13:06 | NUR ---
team meeting, reccomendation: passed video swallow, last night for tf, if does ok with st tomorrow meal, he will be on puree diet, thin liquid and no straw. resp to education on trach care. follow up ent outpt. will need fww, bath bench, trach and o2 supplies with suction. cornelio for dme supplies. family needs teaching with resp therapy. 05/25 dc, hh ( pt, ot, st, nursing, and st with vital stim). and fww and bath bench.
--- NOTE | 2020-05-22 15:26 | NUR ---
ASSUMED CARE AT 0700. PATIENT IS ALERT AND ORIENTED X4. PATIENT CACERES'S, POWER REGULATOR ARE EQUAL. PATIENT REMAINS NPO. PATIENT CONTINUES ON T.F. AT 60 CC/HR FROM 4PM TO 8AM. LUNGS ARE COARSE AND DEMINISHED. TRACH INTACT, PATIENT HAS HUMIFIED AIR TO HIS TRACH AND IS BEING SUCTIONED 1-3 TIMES PER SHIFT. PATIENT HAD VIDEO SWALLOW TODAY. PATIENT WILL START ON PUREED FOOD IN AM WITH THIN LIQUIDS. FALL AND SAFETY PROTOCOLS IN PLACE. DENIES PAIN AT THIS TIME. CONTINUES TO PROGRESS TOWARDS D/C GOALS. UP IN THE CHAIR WITH P.T. G.T. FLUSHES WELL. CONTINUES WITH WATER FLUSHES. WOUND CARE NURSE HERE TO SEE PATIENT. BOTTOM IS HEALED AND WE CAN USE BARRIER CREAM. WILL CONTINUE TO MONITER.
[2020-05-22 19:15] VITALS: BP 108/74
--- NOTE | 2020-05-23 01:31 | NUR ---
PATIENT TOLERATED ALL PM MEDS ONE AT A TIME CRUSHED WITH APPLESAUCE DOUBLE SWALLOWED AFTER EACH MED AND TOOK SIPS OF COLD WATER IN BETWEEN. COUGH SYRUP ALSO SWALLOWED AND WAS THAT ONLY MED THAT TASTED NOTICABLY BAD. NO COUGHING, CHOKING, OR MORE SUCTIONING NECESSARY. TUBE FEEDING AT 60 PER HOUR, WATER AND PROTEIN TO SUPPLEMENT PER TUBE
[2020-05-23 07:15] VITALS: BP 106/64
--- NOTE | 2020-05-23 08:09 | NUR ---
ASSUMED CARE AT 0700. PATIENT IS ALERT AND ORIENTED X4. PATIENT CACERES'S, VENEER PATCHER ARE EQUAL. LUNGS ARE COARSE. PATIENT HAS HUMIDIFIED ROOM AIR TO TRACH. RT HERE TO DO TRACH CARE. ABD IS SOFT WITH BSX4. PATIENT HAS G.T. THAT IS PATIENT. PATIENT IS TO START ON PUREED DIET WITH THIN LIQUIDS WITH S.T. TODAY. MEDS ARE TO BE CRUSHED IN APPLESAUCE. PATIENT WILL BE ON CALORIE COUNT FOR THE NEXT COUPLE OF DAYS. FALL AND SAFETY PROTOCOLS IN PLACE. DENIES PAIN AT THIS TIME. CONTINUES TO PROGRESS TOWARDS D/C GOALS. WILL CONTINUE TO MONITER. PLAN FOR SON TO BE HERE AT 1600 FOR HOME TRAINING WITH RT. WILL CONTINUE TO MONITER
--- NOTE | 2020-05-23 10:12 | NUR ---
DR. 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 PLAN D/C ON THU AND F/U WITH DR. VELARDE, ENT IN [address] WICK.
--- NOTE | 2020-05-23 13:35 | NUR ---
FAXED REFERRAL TO [facility] SPOKE WITH MAUREEN IN INTAKE SHE RECEIVED REFERRAL AND WILL ACCEPT AT [place].
[2020-05-23 13:38] VITALS: BP 106/64
--- NOTE | 2020-05-23 13:39 | NUR ---
prabhu left message with cornelio, to see if needing anything else for his trach and peg supplies prior to dc home on thursday, need to know when supplies will be sent to annabella son home, and rebekah pineda will follow at dc.
--- NOTE | 2020-05-23 16:07 | NUR ---
1600 PATIENT'S SON HERE FOR TRAINING ON SUCTIONING AND TRACH CARE BY Seun
[2020-05-23 19:31] VITALS: BP 121/73
--- NOTE | 2020-05-24 02:33 | NUR ---
assumed care approx 1900 evening 05/23. pt lying in bed with head of bed elevated at change of shift dozing off and on. pt with trach shield in place, denied need for suctioning. pt took hs meds with applesauce crushed tolerating well. peg tube in place and tube feeding started at 2000 at 60/hr per previous RN report and to be continued until 0600. continuous pulse oximeter in place with 02 sats 92% and greater. pt voiding per urinal. pt appears to be sleeping soundly with hourly rounding. bed alarm on and call light in reach. will continue to monitor.
--- NOTE | 2020-05-24 07:39 | NUR ---
ASSUMED CARE AT 0700. PATIENT IS ALERT AND ORIENTED X4. PATIENT CACERES'S, HEATER MECHANIC ARE EQUAL. LUNGS ARE COARSE AND DEMINISHED. TRACH CARE DONE BY R.T. PATIENT REMAINS ON HUMIDIFIED R.A. PATIENT REMAINS ON RESPIRATORY TX AND WAS SUCTIONED BY R.T. ABD IS SOFT WITH BSX4. PATIENT HAS G.T. THAT IS PATENT AND CLAMPED. PATIENT IS VOIDING TOMAS COLORED URINE PER URINAL. PATIENT ON PO THIN LIQUIDS, PUREED DIET WITH S.T. FALL AND SAFETY PROTOCOLS IN PLACE. DENIES PAIN AT THIS TIME. WILL CONTINUE TO MONITER.
[2020-05-24] MEDS ORDERED: PULMICORT0.5 MG/22 INH (08:21)
[2020-05-24] MEDS ORDERED: VITAMIN D3125 MC1 PO (08:21)
[2020-05-24] MEDS ORDERED: Transderm-Scop 1MG/7 TRANSDERM (08:21)
[2020-05-24] MEDS ORDERED: TYLENOL EXTRA500 MG PER TUBE (08:21)
[2020-05-24] MEDS ORDERED: IPRAT-ALBUT 0.5-3 ML INH (08:21)
[2020-05-24] MEDS ORDERED: METFORMIN HCL500 MG PO (08:21)
[2020-05-24] MEDS ORDERED: ELIQUIS5 MG PER TUBE (08:21)
[2020-05-24] MEDS ORDERED: CARDURA4 MG PER TUBE (08:21)
[2020-05-24] MEDS ORDERED: LOPRESSOR50 PO (08:21)
--- NOTE | 2020-05-24 12:00 | NUR ---
cm fax orders to [facility], supplies will be sent to pt son house on day of dc 5th.
[2020-05-24 19:29] VITALS: BP 118/70
--- NOTE | 2020-05-25 00:24 | NUR ---
PT ALERT AND ORIENTED X 4. TRACH INTACT WITH WHITE SPUTUM. SUCTIONED BY RT. PEG TUBE PATENT. FLUSHED WITHOUT DIFFICULTY. PT C/O PAIN IN HIS LEGS. HYDROCODONE GIVEN AT HS. PT TOOK HS MEDS CRUSHED IN APPLESAUCE WITHOUT DIFFICULTY. BED ALARM ON FOR SAFETY. PT APPEARS TO BE SLEEPING ON HOURLY ROUNDS.
[2020-05-25 08:00] VITALS: BP 118/66
[2020-05-25 08:48] VITALS: BP 118/70
--- NOTE | 2020-05-25 11:06 | NUR ---
ASSUMED CARE AT 0700. SLEPT FAIRLY WELL. ALERT AND ORIENTATED, NON VERBAL DUE TO TRACH. ON TRACH MASK ON 21% MEDICAL AIR. SUCTIONING DONE PRN. DENIES ANY PAIN. PT IS TOLERATING HIS PO INTAKE AND ATE 50% OF HIS BREAKFAST TODAY. TOLERATED PO FLUID INTAKE. TOOK ALL HIS MEDS CRUSHED WITH APPLE SAUCE. PT IS EXICTED ABOUT GOIND HOME TODAY WITH SON AND HH. DC PLANNING DONE AND WILL DISCUSSED WITH FAMILY AND PT WITH DC INSTRUCTIONS. PLAN TO LEAVE AFTER 1400.
[2020-05-25] MEDS ORDERED: LOVASTATIN 20 M20 MG PER TUBE (13:08)
[2020-05-25] MEDS ORDERED: TRANSDERM-SCOP1 EACH TRANSDERM (13:08)
[2020-05-25] MEDS ORDERED: LOPRESSOR50 PO (13:08)
[2020-05-25] MEDS ORDERED: ELIQUIS5 MG PER TUBE (13:08)
[2020-05-25] MEDS ORDERED: METFORMIN HCL500 MG PO (13:08)
[2020-05-25] MEDS ORDERED: VITAMIN D3125 MC1 PO (13:08)
[2020-05-29] MEDS ORDERED: TRANSDERM-SCOP1 EACH TRANSDERM (17:29)
== END 2020-05-25 14:15 | disposition home health service (06) | DRG 91 ==
PROVIDERS: Hospitalist; Internal Medicine; Nurse Practitioner; Nurse Practitioner Family; Pediatrics; ADMIT Physical Medicine & Rehabilitation; ATTEND Physical Medicine & Rehabilitation
DX: G72.81 Critical illness myopathy (principal); G92 Toxic encephalopathy; J96.01 Acute respiratory failure with hypoxia; C34.31 Malignant neoplasm of lower lobe, right bronchus or lung; E87.0 Hyperosmolality and hypernatremia; E44.0 Moderate protein-calorie malnutrition; J95.851 Ventilator associated pneumonia; J44.0 Chronic obstructive pulmonary disease with (acute) lower respiratory infection; T81.30XA Disruption of wound, unspecified, initial encounter; I82.613 Acute embolism and thrombosis of superficial veins of upper extremity, bilateral; E11.42 Type 2 diabetes mellitus with diabetic polyneuropathy; I10 Essential (primary) hypertension; E78.5 Hyperlipidemia, unspecified; B96.5 Pseudomonas (aeruginosa) (mallei) (pseudomallei) as the cause of diseases classified elsewhere; F32.9 Major depressive disorder, single episode, unspecified; F41.9 Anxiety disorder, unspecified; F43.23 Adjustment disorder with mixed anxiety and depressed mood; R41.0 Disorientation, unspecified; E87.6 Hypokalemia; R13.10 Dysphagia, unspecified; D64.9 Anemia, unspecified; I48.0 Paroxysmal atrial fibrillation; Z60.2 Problems related to living alone; Y83.8 Other surgical procedures as the cause of abnormal reaction of the patient, or of later complication, without mention of misadventure at the time of the procedure; K59.00 Constipation, unspecified; Z68.24 Body mass index [BMI] 24.0-24.9, adult; Z95.1 Presence of aortocoronary bypass graft; Z88.0 Allergy status to penicillin; Z87.891 Personal history of nicotine dependence; Y92.89 Other specified places as the place of occurrence of the external cause; Z79.01 Long term (current) use of anticoagulants
CPT/HCPCS: 10112

== ENCOUNTER 2020-06-04 00:10 | Inpatient (IN) | payer OTHER ==
[~2020-06-04] VITALS: Ht 182.9 cm; Wt 91.6 kg
[~2020-06-04 00:10] MED LIST changes: +CARDURA4 MG PER TUBE; +ELIQUIS5 MG PER TUBE; +METFORMIN HCL500 MG PO; +PULMICORT0.5 MG/22 INH; +TRANSDERM-SCOP1 EACH TRANSDERM; +TYLENOL EXTRA500 MG PER TUBE; +Transderm-Scop 1MG/7 TRANSDERM; +VITAMIN D3125 MC1 PO
[2020-06-04 00:11] VITALS: BP 198/99
[2020-06-04 02:11] LABS: BE(vivo) -1.8 mmol/L (-2 to +3); HCO3 20.2 mmol/L (22.0-26.0); PCO2 27.7 mmHg (35.0-45.0); PO2 85.7 mmHg (80.0-100.0); pH 7.481 (7.360-7.450); sO2 97.2 % (92.0-98.0)
[2020-06-04 02:13] LABS: ANION GAP 14 mmol/L (7-16); BUN 8 mg/dL (7-18); CALCIUM 9.8 mg/dL (8.5-10.1); CHLORIDE 101 mmol/L (98-107); CO2 25 mmol/L (21-32); CREATININE 0.6 mg/dL (0.7-1.3); GLUCOSE 169 mg/dL (74-106); POTASSIUM 3.6 mmol/L (3.5-5.1); SODIUM 140 mmol/L (136-145)
[2020-06-04 02:15] LABS: ABSOLUTE NEUTROPHILS 13.6 thou/uL (1.4-8.2); BASOPHILS 0.7 % (0.0-2.0); HEMATOCRIT 42.4 % (42.0-52.0); HEMOGLOBIN 13.5 gm/dL (14.0-18.0); LYMPHOCYTES 10.2 % (24.0-44.0); MCH 28.4 pg (26.0-34.0); MCHC 31.9 g/dL (28.0-37.0); MONOCYTES 7.1 % (1.0-8.0); PLATELET COUNT 385 thou/uL (150-400); RBC 4.76 mil/uL (4.50-6.00); RDW 14.6 % (10.5-14.5); WBC 16.8 thou/uL (4.0-11.0)
[2020-06-04 02:23] LABS: ALBUMIN 3.4 g/dL (3.4-5.0); SGOT 32 U/L (15-37); SGPT 64 U/L (30-65); TOTAL BILIRUBIN 0.3 mg/dL (0.2-1.0); TOTAL PROTEIN 6.8 g/dL (6.4-8.2); TROPONIN-I <0.06 ng/mL (<0.06)
--- NOTE | 2020-06-04 13:01 | NUR ---
Received consult for tube feeding. Pt had recent extensive medical stay on both acute and 5N inpatient rehab unit. Hx lung cancer, trach, PEG. Pt has not been assigned inpatient bed at this time. Was taking po at time of recent discharge 05/25, now readmitted with acute on chronic respiratory failure. Has orders for ST to eval. Will follow up again 06/05 to determine if pt will be able to take oral intake and eval for any enteral nutrition needs.
--- NOTE | 2020-06-04 17:04 | NUR ---
50-year-old male with a history of non-small cell lung cancer s/p right lower lobectomy, acute hypoxic respiratory failure s/p tracheostomy and PEG, COPD on no home 02, Afib on Eliquis, hypertension, hyperlipidemia, diabetes type 2, and anemia who presents to the ED with c/o SOA that began yesterday. Associated productive cough. Pt has 02 saturation of 88% that improved with breathing treatment. The patient is status post right lower lobe thoracotomy related to respiratory failure. He was trach and peg. He was sent to our in-pt rehab unit. He was discharged home on 05/25. The patient has been admitted with Acute Hypoxic respiratory failure, Weakness, Non-small cell lung CA, HTN, HLD, PAFIB and DM2. The patient was last seen by CM on 05-23 to discharge home with DME with [facility] and [facility]. CM will follow for discharge needs.
[2020-06-04 18:19] VITALS: BP 128/62
--- NOTE | 2020-06-04 18:23 | NUR ---
ATTMEPTED TO CALL REPORT. WAITED ON HOLD FOR SEVERAL MINUTES. WILL SEND PT. TO FLOOR AND NURSE CAN CALL FOR REPORT
[2020-06-04 18:50] VITALS: BP 128/66
[2020-06-04 18:55] VITALS: BP 134/59
[2020-06-05 00:30] VITALS: BP 126/67
[2020-06-05 04:30] VITALS: BP 110/46
[2020-06-05 04:39] LABS: CALCIUM 9.1 mg/dL (8.5-10.1); CREATININE 0.7 mg/dL (0.7-1.3); POTASSIUM 3.1 mmol/L (3.5-5.1)
[2020-06-05 05:02] LABS: HEMATOCRIT 32.5 % (42.0-52.0); HEMOGLOBIN 10.4 gm/dL (14.0-18.0); MCH 28.6 pg (26.0-34.0); MCHC 32.1 g/dL (28.0-37.0); MCV 89.3 fL (80.0-100.0); RBC 3.64 mil/uL (4.50-6.00); RDW 14.3 % (10.5-14.5); WBC 12.2 thou/uL (4.0-11.0)
--- NOTE | 2020-06-05 06:32 | NUR ---
PATIENTS CARES WERE ASSUMED AT SHIFT CHANGE. PATIENT WAS ASSESSED AND MEDS WERE PASSED. PATIENT HAS A HARD TIME WITH SPEECH D/T HIS TRACH. NO WHITE BOARDS WERE FOUND. WILL GIVE PAPER AND PEN BEFORE I LEAVE. ROUNDING WAS DONE . THE BED IS IN A LOW AND LOCKED POSITION
--- NOTE | 2020-06-05 06:47 | EKG ---
[place] [address] [facility] [place] [address] ELECTROCARDIOGRAM REPORT Name: SHAN PETERSEN Room #: 218-P ADM IN M.R.#: [id number] Admission: 06/04/20 Attend Phys: Leonel Wade MD Discharge: Date of : 56 Report #: [id number] [facility] ED Test Date: 2020-06-04 Test Time: 01:01:50 Pat Name: SHAN PETERSEN Department: Room: 218 Gender: M Sales Trainee: : 1960 Requested By: Joseph Rivers Order Number: [id number] MD: Vignesh Denson Measurements Intervals [place] Rate: 83 P: 54 OR: 161 QRS: 8 QRSD: 83 T: 45 QT: 369 QTc: 434 Interpretive Statements Sinus rhythm Low voltage, extremity leads Compared to ECG 05/04/2020 11:31:56 Low QRS voltage now present ST (T wave) deviation now present Electronically Signed On 06-05-2020 6:47:40 GENERAL MACHINIST by Vignesh Denson [email or web address] <ELECTRONICALLY SIGNED> By: Vignesh Denson MD, [facility] 06/05/20 0647 0 0 Vignesh Denson MD, FACC /EPI
[2020-06-05 07:55] VITALS: BP 132/60
--- NOTE | 2020-06-05 10:22 | NUR ---
RECEIVED CALL FROM CHRISTIANO FROM [facility] PT ON SERVICE WITH THEM PRIOR TO ADM.
--- NOTE | 2020-06-05 10:54 | NUR ---
FAXED CLINICAL UPDATES AND COVID NEGATIVE RESULTS TO [facility]. P [phone]; FAX [phone]
[2020-06-05 12:10] VITALS: BP 124/59
--- NOTE | 2020-06-05 15:25 | NUR ---
Nutrition: To supplement current po intakes and assist in prevention of further weight loss, muscle atrophy, REC bolus 2 cans 2 Kai HN daily (best time frame could be determined by pt). Will meet 36-37% of needs.
[2020-06-05 15:30] VITALS: BP 116/73
--- NOTE | 2020-06-05 17:19 | NUR ---
ASSUMED CARE OF PT AT SHIFT CHANGE. ASSESSMENTS CHARTED. MEDS GIVEN PER JUN. PT A7OX4, NO C/O PAIN. PT CAN'T TALKS BUT MOUTHS WORDS WELL. PT TOLERATING PUREED DIET AND THIN LIQUIDS WELL. WILL START BOLUS FEED THROUGH PEG TUBE AT NIGHT TO GAIN WEIGHT. PT WORKED WITH PT/OT, WALKING IN [place]. WILL CONTINUE TO MONITOR FOR CHANGE AND FOLLOW POC.
[2020-06-05 19:45] VITALS: BP 103/55
[2020-06-06] VITALS (7 sets, daily range): BP systolic 95–133; BP diastolic 51–66
[2020-06-06 06:02] LABS: ABSOLUTE NEUTROPHILS 4.1 thou/uL (1.4-8.2); BASOPHILS 1.9 % (0.0-2.0); EOSINOPHILS 1.8 % (0.0-3.0); HEMATOCRIT 35.7 % (42.0-52.0); HEMOGLOBIN 11.6 gm/dL (14.0-18.0); LYMPHOCYTES 35.9 % (24.0-44.0); MCH 29.1 pg (26.0-34.0); MCHC 32.5 g/dL (28.0-37.0); MCV 89.5 fL (80.0-100.0); MONOCYTES 10.3 % (1.0-8.0); PLATELET COUNT 297 thou/uL (150-400); POLYS 50.1 % (36.0-66.0); RBC 3.98 mil/uL (4.50-6.00); RDW 14.9 % (10.5-14.5); WBC 8.2 thou/uL (4.0-11.0)
--- NOTE | 2020-06-06 12:04 | NUR ---
Case discussed with the care team. Following for resumption of hh services with Ender at dc. Pt has enteral/trach supplies/o2 per Waylon. He is living with his son since his dc from acute rehab a couple of weeks ago. He has been up walking with therapy. Tank Charger recommendtions for 2cans of enteral formula to supplement his po intake noted. ENT consult pending due to issues with his trach. Continues on IV atb. Dc timeframe 1-2 days. Will follow.
--- NOTE | 2020-06-06 13:49 | NUR ---
PT ON SERVICE WITH [facility] FAXED CLINICAL UPDATE RECEIVED CONFIRMATION AND SPOKE WITH MAUREEN IN INTAKE.
[2020-06-06 18:54] LABS: HEMATOCRIT 36.6 % (42.0-52.0); HEMOGLOBIN 11.7 gm/dL (14.0-18.0); MCH 28.2 pg (26.0-34.0); MCHC 32.1 g/dL (28.0-37.0); MCV 87.8 fL (80.0-100.0); RBC 4.17 mil/uL (4.50-6.00); RDW 14.2 % (10.5-14.5); WBC 9.5 thou/uL (4.0-11.0)
[2020-06-06 19:09] LABS: INR 1.1; PROTIME 11.8 Seconds (9.3-11.4)
[2020-06-07 01:38] LABS: ALBUMIN 2.5 g/dL (3.4-5.0); CALCIUM 8.4 mg/dL (8.5-10.1); CREATININE 0.6 mg/dL (0.7-1.3); PHOSPHORUS 2.8 mg/dL (2.5-4.9)
[2020-06-07 01:40] LABS: POTASSIUM 2.9 mmol/L (3.5-5.1)
[2020-06-07 03:10] VITALS: BP 150/68
[2020-06-07 08:27] VITALS: BP 131/65
[2020-06-07 11:28] VITALS: BP 84/46
--- NOTE | 2020-06-07 15:19 | NUR ---
A #4F POWER MIDLINE WAS PLACED PER HOSPITAL POLICY. LINE WAS TRIMMED TO 15CM, SECURED AND RELEASED FOR USE
[2020-06-07 16:20] VITALS: BP 109/56
--- NOTE | 2020-06-07 19:58 | NUR ---
ASSUMED CARE AT CHANGE OF SHIFT. PT REMAINS ALERTX4, CHRONIC BACK PAIN MANAGED WTIH MEDIATIONS. PT ABLE TO MANAGE MUCUS DRAINAGE FROM TRACH WITH TISSUE. SUPPLEMENTS ANF PO MEDS GIVEN THROUGH PEG PER ORDERS. CONSENT FOR SURGERY SIGNED SURGERY PLANNED FOR NOON. UPDATED SON ON PT'S STATUS. SON BROUGHT PERSONAL ITEMS THAT HE REQUESTED INCLUDING PT'S PHONE/PRODUCT DEVELOPMENT TECHNICIAN. IV IN RIGHT HAND AND WRIST DC'S NEW MIDLINE PLACED BY IV-TEAM. APTT AT 9AM 83.7 AND RATE REDUCED PER PROTOCOL. APTT AT 1500 61.9 NO CHANGES. HEPARIN TO BE STOPPED AT MIDNIGHT FOR SURGERY TOMORROW AND DIET CHANGE TO CLD. PERSONAL ITEMS IN REACH. PT STABLE WILL CALL FOR STAND BY TO BATHROOM. USES URINAL BEDSIDE.
[2020-06-07 20:10] VITALS: BP 126/65
[2020-06-08 04:32] VITALS: BP 122/64
--- NOTE | 2020-06-08 07:42 | NUR ---
SLEPT MOST OF SHIFT. UP WITH STANDBY ASSIST. WORKING ON GOALS AND PLAN OF CARE FOR NOC. PROGRESSING TOWARDS SURGERY THIS AM. HEPARIN GTT OFF AT 0000. DENIES PAIN THIS AM. CONTINUE TO ASSES CLOSELY.
[2020-06-08 08:00] VITALS: BP 132/65
[2020-06-08 11:41] LABS: CREATININE 0.6 mg/dL (0.7-1.3); POTASSIUM 3.4 mmol/L (3.5-5.1)
[2020-06-08 12:30] VITALS: BP 131/73
--- NOTE | 2020-06-08 16:06 | NUR ---
Pt down for ENT surgery today to remove the granuloma and replace his trach. ENT note faxed to [facility] per the [place] materials planner. Will fax op notes and any updates to [facility] next week for trach and peg supplies and enteral formula. The pt has suction/o2 in place. ST to work with the pt postop on speaking value and swallow tx. No weekend dc anticipated. Pt is doing well with PT/OT. Ender is on standby to resume at [place]. The pt has been staying with his son and will likely return there at la. Will follow.
[2020-06-08 16:10] VITALS: BP 108/52
[2020-06-08 16:30] VITALS: BP 140/68
--- NOTE | 2020-06-08 19:47 | NUR ---
PT PROGRESSING TOWARDS GOALS. PT HAS MICROLARANGEALSCOPY TODAY BY Christel VALENZUELA NOTE. PT COUGHING UP PINK MUCUS AT TRACH SIGHT. PAIN MANAGED WITH MEDICATION. DIET TO BE ADVANCED TOLERATED. HEPERON TO BE HELD UNTIL DR ROJO ROUNDS IN THE MORNING.
[2020-06-08 20:45] VITALS: BP 110/65
[2020-06-09 04:45] VITALS: BP 110/66
[2020-06-09 05:53] LABS: HEMATOCRIT 37.3 % (42.0-52.0); HEMOGLOBIN 12.2 gm/dL (14.0-18.0); MCH 28.7 pg (26.0-34.0); MCHC 32.6 g/dL (28.0-37.0); MCV 88.2 fL (80.0-100.0); RBC 4.24 mil/uL (4.50-6.00); RDW 14.5 % (10.5-14.5); WBC 9.3 thou/uL (4.0-11.0)
--- NOTE | 2020-06-09 07:13 | NUR ---
PT RESTING QUIETLY IN ROOM THRU THE NOC, VSS, PRN PAIN MEDS GIVEN FOR THROAT PAIN, SUPPLEMENT BOLUS GIVEN AT HS, VOIDING PER URINAL, REMAINS ON TRACH SHIELD, R UPPER MIDLINE NOT DRAWING BLOOD, WILL CON'T TO MONITOR PER PPOC.
[2020-06-09 08:00] VITALS: BP 124/71
[2020-06-09 12:00] VITALS: BP 105/63
--- NOTE | 2020-06-09 15:53 | NUR ---
ASSUMED CARE OF PT AT SHIFT CHANGE. ASSESSMENTS CHARTED. MEDS GIVEN PER JUN. PT A&OX4, C/O PAIN BUT DECLINED PAIN MEDS. PT USING FINGER OCLUSSION ON TO TALK. TOLERATING REG DIET WELL. SURGEON WANTS CT OF NECK ON THURSDAY. WILL CONTINUE TO MONITOR FOR CHANGES AND FOLLOW POC.
[2020-06-09 16:00] VITALS: BP 97/48
[2020-06-09 19:25] VITALS: BP 101/58
[2020-06-10 03:30] VITALS: BP 119/64
--- NOTE | 2020-06-10 06:43 | NUR ---
SLEPT PART OF SHIFT. UP WITH STANDBY ASSIST. DENIES COMPLAINTS AT THIS TIME. MAINTAIN HEPARIN GTT. WORKING ON GOALS AND PLAN OF CARE FOR NOC. CONTINUE TO ASSES CLOSELY. DENIES COMPLAINTS OF DIFFICULTY BREATHING.
[2020-06-10 08:54] VITALS: BP 127/67
[2020-06-10 12:41] VITALS: BP 125/52
--- NOTE | 2020-06-10 15:00 | NUR ---
ASSUMED CARE OF PT AT SHIFT CHANGE. ASSESSMENTS CHARTED. MEDS GIVEN PER JUN. PT A&OX4, NO C/O PAIN OR DISTRESS. TOLERATEING REG DIET WELL. ON HEPARIN GTTS. PLAN FOR ENT EVALUATION TOMORROW AND SPEEACH EVAL FOR SPEAKING VALVE. WILL CONTINUE TO MONITOR FOR CHANGE AND FOLLOW POC
[2020-06-10 16:15] VITALS: BP 129/57
[2020-06-10 20:02] VITALS: BP 110/50
[2020-06-11 04:29] VITALS: BP 145/61
--- NOTE | 2020-06-11 07:37 | NUR ---
SLEPT MOST OF SHIFT. UP WITH STANDBY ASSIST NEEDED. PROGRESSING TOWARDS GOALS FOR AM PROCEDURE WITH ENT. HEPARIN GTT OFF AT MN. NPO PAST MIDNIGHT. WORKING ON GOALS AND PLAN OF CARE FOR NOC. DENIES COMPLAINTS OF PAIN THIS AM.
[2020-06-11 08:00] VITALS: BP 142/67
--- NOTE | 2020-06-11 09:11 | NUR ---
ASSUMED PT CARE AT 0700. PT RESTING WATCHING TV IN BED. ASSESSMENT PERFORMED. PT DENIES PAIN AT THIS TIME. PT PREPARING TO GO TO CT.
--- NOTE | 2020-06-11 11:29 | NUR ---
PT RESTING. ASSESSMENT UNCHANGED. PT DENIES NEW PAIN, HOWEVER STATES HE DOES HAVE SOME CHRONIC PAIN AT THIS TIME. PT DENIES MEDS AT THIS TIME. VSS. WILL CONTINUE TO MONITOR.
[2020-06-11 12:00] VITALS: BP 140/63
--- NOTE | 2020-06-11 12:52 | O ---
[facility] [place] [address] OPERATIVE REPORT Name: SHAN PETERSEN Room #: 218-P [facility] IN M.R.#: [id number] Admission: 06/04/20 Attend Phys: Leonel Wade MD Discharge: Date of : 56 Report #: [id number] THIS REPORT FOR: cc: Gary Wade David J. DO Thompson, Robert F. MD ~ DATE OF SERVICE: 06/08/2020 PREOPERATIVE DIAGNOSES: 1. Tracheostomy. 2. Subglottic tracheal obstruction. POSTOPERATIVE DIAGNOSES: 1. Tracheostomy. 2. Subglottic tracheal stenosis. OPERATIVE PROCEDURES: 1. Rigid bronchoscopy. 2. Microlaryngoscopy. 3. Laser excision of subglottic tracheal stenosis. ANESTHESIA: General. ESTIMATED BLOOD LOSS: 30 mL. INDICATIONS FOR SURGERY: The patient is a 60-year-old male who had a partial pneumonectomy as treatment for lung cancer. This necessitated prolonged ventilator support and ultimately a tracheostomy. He has had a tracheostomy tube for some time and has not been able to be weaned off of it. He has no voice when plugging the tracheostomy tube. Fiberoptic laryngoscopy at the bedside revealed subglottic tracheal obstruction. It was my initial impression that this may represent a large granuloma, but I was unable to rule out fibrous tissue at that time. DESCRIPTION OF OPERATION: The patient was placed on the operating table in the supine position. After general anesthesia was achieved via the tracheostomy site, I proceeded to evaluate them endoscopically. First, I inserted the Dedo laryngoscope to examine the oropharynx, hypopharynx and larynx. This all appeared normal to the level of the subglottis. The piriform sinuses, post-cricoid root in the vallecula, the epiglottis and the glottic larynx all appeared normal. I then suspended the larynx with the Lewy suspension device. I then inserted a 5-mm telescope through the laryngoscope between the vocal cords and into the subglottic trachea. I encountered an obstructed soft tissue mass in the trachea. I palpated this and it was firm. Prior to removing it, I [facility] [address] [place] [address] OPERATIVE REPORT Name: SHAN PETERSEN Room #: 218-P [facility] IN M.R.#: [id number] Admission: 06/04/20 Attend Phys: Leonel Wade MD Discharge: Date of : 56 Report #: [id number] injected it with lidocaine with epinephrine. I also topically decongested this area with epinephrine on cottonoid pledgets. We then removed the endotracheal tube from the tracheostomy stoma and inserted a laser safe endotracheal tube. The cuff was then inflated with saline. I then turned my attention back to the larynx, which was now viewed telescopically with a 5-mm telescope and intermittently microscopically with a microscope and a 400 mm lens. Again, I encountered firm fibrous tissue in the subglottic trachea. I used a cup biopsy forceps to bite into this tissue and take some for histopathology, which was sent in formalin. I eventually pushed through this firm tissue inferiorly with the cupped biopsy forceps into the subglottic trachea. I then made a large enough hole that I was able to insert the telescope and remove the endotracheal tube and performed a tracheoscopy and rigid bronchoscopy. This was done to the level of the main stem bronchi. There was edema of the tracheobronchial tree, but no other pathology. The laser safe endotracheal tube was reinserted and reinflated. I then passed a moist cottonoid through the opening in the fibrous tissue to coat under tube plugged off the distal portion of the subglottic trachea. I then hooked the CO2 laser to the microscope. It was set at 10 elizalde of continuous power. I then lasered away at the subglottic fibrous tracheal stenosis and opened up the subglottic trachea. I went circumferentially around it. I did this with great care creating about 1-1.5 cm maximal diameter subglottic tracheal airway. When I completed this procedure, I injected 1 mm Kenalog 40 into the submucosa the surrounding trachea. I then removed the endotracheal tube and reexamined this area with a telescope. I think this will be a continued problem with this, I thought was as much as we could do at this time. The tracheostomy tube was then changed to a #6 Shiley cuffless tracheostomy tube. The patient was then awakened in the operating room, taken to recovery room in stable condition. PLAN: The patient will be observed over the weekend. I instructed him in the recovery room on how to vocalize by placing his finger over the tracheostomy opening. We will likely switch this to a fenestrated tracheostomy tube without a cuff. He needs case management involved in discharge planning for home tracheostomy care including suction devices, mist and oxygen, tracheostomy ties. He will need education on the tracheostomy care and the importance of not allowing the tracheostomy tube to come out, since this may be his only airway ____. Currently, I have the tracheostomy secured with tight tracheostomy ties. We will get a CT scan early in the upcoming week for the purpose of defining the level of the stenosis as well as the level of the tracheostomy tube, especially on sagittal view. I believe that he is a high likelihood of restenosis and then [facility] [place] [address] OPERATIVE REPORT Name: SHAN PETERSEN Room #: 218-P ADM IN M.R.#: [id number] Admission: 06/04/20 Attend Phys: Leonel aWde MD Discharge: Date of : 56 Report #: [id number] ultimately he may need a laryngotracheal reconstruction procedure, which may necessitate moving the tracheostomy tube downward or inferiorly. <ELECTRONICALLY SIGNED> By: Hansel Luis MD 06/11/20 1252 1536 1611 Hansel Luis MD /nt
--- NOTE | 2020-06-11 12:52 | O ---
[facility] [place] [address] OPERATIVE REPORT Name: SHAN PETERSEN Room #: 218-P ADM IN M.R.#: [id number] Admission: 06/04/20 Attend Phys: Leonel Wade MD Discharge: Date of : 56 Report #: [id number] THIS REPORT FOR: cc: Gary Wade David J. DO Thompson, Robert F. MD ~ DATE OF SERVICE: 06/06/2020 PREOPERATIVE DIAGNOSIS: Airway obstruction. POSTOPERATIVE DIAGNOSIS: Subglottic tracheal mass causing obstruction of the subglottic tracheal airway. OPERATIVE PROCEDURE: Fiberoptic tracheobronchoscopy and fiberoptic laryngoscopy. ANESTHESIA: None. DESCRIPTION OF PROCEDURE: The fiberoptic nasopharyngoscope was introduced through the tracheostomy tube into the mid trachea. The distal trachea and main stem bronchi were normal with the exception of mucosal edema and thick mucus. The fiberoptic scope was removed. The tracheostomy tube was then removed. This procedure was repeated with the same findings. There was no distal mass or granuloma below the tracheostomy stoma. I then attempted to look through the tracheostomy stoma to the upper subglottic trachea. There was a soft tissue mass obstructing the upper subglottic trachea, not able to see the vocal cords through this approach. The nature of the mass cannot be defined through this approach, but there was no subglottic tracheal airway present. I then introduced the fiberoptic scope through the right side of the nose into the nasopharynx and oropharynx. I examined the larynx from above. The supraglottic larynx and hypopharynx was normal. The vocal cord mobility was normal. I could not visualize through the vocal cords into the subglottic trachea due to the patient's tolerance. This concluded the procedure with the impression that there appears to be a subglottic tracheal mass. This may be a granuloma or it could be fibrous tracheal stenosis that is obstructing the subglottic tracheal airway. He will [facility] [place] [address] OPERATIVE REPORT Name: SHAN PETERSEN Room #: 218-P [facility] IN ..#: [id number] Admission: 06/04/20 Attend Phys: Leonel Wade MD Discharge: Date of : 56 Report #: [id number] be scheduled for microlaryngoscopy and bronchoscopy with use of the laser to attempt to resolve the subglottic tracheal obstruction. <ELECTRONICALLY SIGNED> By: Hansel Luis MD 06/11/20 1252 0943 0953 Hansel Luis MD /nt
[2020-06-11 15:00] VITALS: BP 128/60
[2020-06-11 20:45] VITALS: BP 124/59; BP 136/85
--- NOTE | 2020-06-12 04:54 | NUR ---
SLEPT MOST OF SHIFT. COUGHING UP CLEAR WHITE SPUTUM. TALKING WITH HOLDING FINGER OVER TRACH. WORKING ON GOALS AND PLAN OF CARE FOR NOC. DENIES COMPLAINTS OF CHEST PAIN. MEDICATION GIVEN NEEDED FOR PAIN AT TRACH SITE. PROGRESSING SLOWLY TOWARDS DISCHARGE GOALS TO [facility]. CONTINUE TO ASSES CLOSELY AND MAINTAIN HEPARING GTT PER PROTOCOL.
[2020-06-12 05:03] VITALS: BP 151/67
[2020-06-12 05:58] LABS: HEMATOCRIT 33.4 % (42.0-52.0); HEMOGLOBIN 10.8 gm/dL (14.0-18.0); MCH 28.8 pg (26.0-34.0); MCHC 32.3 g/dL (28.0-37.0); MCV 88.9 fL (80.0-100.0); RBC 3.76 mil/uL (4.50-6.00); RDW 14.4 % (10.5-14.5); WBC 8.4 thou/uL (4.0-11.0)
[2020-06-12 08:00] VITALS: BP 137/72
[2020-06-12 12:05] VITALS: BP 149/61
--- NOTE | 2020-06-12 14:35 | NUR ---
SPOKE WITH ANTHONY FROM [facility] AND CONFIRMED THAT THEY ARE FOLLOWING PT FOR TRACH SUPPLIES AND THAT THEY DO NOT DO ENTERAL FEEDINGS. SPOKE WITH SAULO AT [facility] REGARDING ENTERAL FEEDING SHE RECEIVED REFERRAL AND IS WTG TO SEE WHEN PT IS GOING TO DISCHARGE. DP TO FOLLOW.
[2020-06-12 16:30] VITALS: BP 149/79
--- NOTE | 2020-06-12 18:05 | NUR ---
plans for discharge tomorrow. patient eating and voiding well. heparin gtt stopped today.
[2020-06-12 20:52] VITALS: BP 124/71
[2020-06-13] VITALS (7 sets, daily range): BP systolic 108–147; BP diastolic 52–86
[2020-06-13] MEDS ORDERED: PEPCID20 MG PER TUBE (08:09)
[2020-06-13] MEDS ORDERED: CEFUROXIME500 MG PO (08:10)
--- NOTE | 2020-06-13 13:05 | NUR ---
PT DISCHARGING TODAY TO HOME WITH [facility] FAXED DC ORDERS/SUMMARY SPOKE WITH MAUREEN IN INTAKE SHE RECEIVED ORDERS AND WILL ARRANGE VISITS WITH PT.
--- NOTE | 2020-06-13 13:51 | NUR ---
PT IS AXOX4, PLEASANT. DR ROJO CONSULTED. PT TO DISCHARGE TO HOME WITH SON. FOLLOW UP IN THREE TO FOUR WEEKS TO ASSESS PROGRESS OF TRACH. PT HAS BEEN UP TO TOILET AD DALILA. DISCHARGE EDUCATION CONDUCTED ON FOLLOW UP, RX, AND AIR QUALITY AT HOME. PT CONFIRMED HE UNDERSTOOD. NO CONCERNS AT THIS TIME.
--- NOTE | 2020-06-13 18:06 | PATH ---
[facility] [place] [address] PATHOLOGY RPT PROCEDURE Name: TRINITYCLIFFORD Room #: 218-P DIS IN M.R.#: [id number] Admission: 06/04/20 Date of : 56 Discharge: 06/13/20 Report #: [id number] Path Case #: [id number] [facility] Accession Number: [id number] . 01 Material submitted: . trachea - SUBGLOTTIC TRACHEAL MASS . 01 Clinical history: . SUBGLOTTIC TRACHEAL OBSTRUCTION TRACHAEAL GRANULOMA . 02 Diagnosis: Subglottic tracheal mass, excision: - Ciliated epithelium, overlying a dense fibroinflammatory process with dystrophic calcification, focal ossification, and scattered foci of reactive hyaline cartilage; negative for dysplasia and malignancy. - Please see comment. (LEON:zuleika; 06/13/2020) QMS 06/13/2020 1733 Local . 02 Comment: Sections of the tracheal mass show a subepithelial fibroinflammatory process, with scattered plasma cells, lymphocytes, histiocytes and rare neutrophils. There are foci of dystrophic calcification, nodules of reactive hyaline cartilage, and focal areas of ossification. A robust granulomatous process is not identified. There is no evidence of dysplasia or malignancy. (MLK:zuleika; 06/13/2020) . 02 Electronically signed: . Jazlyn Newberry MD, Pathologist NPI- [id number] . 01 Gross description: . Received in formalin labeled "[place], subglottic tracheal mass" are multiple kaye-brown soft tissue fragments measuring in aggregate 2.3 x 0.5 x 0.3 cm. The specimen is submitted entirely in A1. ([facility]; 06/11/2020) GZA/GZA 06/11/2020 1652 Local . 02 Pathologist provided ICD-10: J39.8 . 02 CPT . 144666 Specimen Comment: Report sent to Performed at: [address] [place] [address] PATHOLOGY RPT PROCEDURE Name: CLIFFORD HI Room #: 218-P DIS IN M.R.#: [id number] Admission: 06/04/20 Date of : 56 Discharge: 06/13/20 Report #: [id number] Path Case #: [id number] [address], [place], [place] [id number] MD Kalin Brand MD Phone: [phone] Performed at: [address] [id number] MD Marilyn Bond MD Phone: [phone]
== END 2020-06-13 16:35 | disposition home health service (06) | DRG 166 ==
LOC: ER 00:10 → 2N 03:10 → EROBS 03:10 → 2N 19:03
PROVIDERS: Emergency Medicine; Hospitalist; Nurse Practitioner Family; Pediatrics; ADMIT Internal Medicine; ATTEND Internal Medicine
PROC: 0CJS8ZZ Inspection of Larynx, Via Natural or Artificial Opening Endoscopic (ICD-10-PCS; principal; 2020-06-06)
PROC: 05HB33Z Insertion of Infusion Device into Right Basilic Vein, Percutaneous Approach (ICD-10-PCS; 2020-06-07)
PROC: 0BB Respiratory System, Excision (ICD-10-PCS; 2020-06-08)
PROC: 0BP1XDZ Removal of Intraluminal Device from Trachea, External Approach (ICD-10-PCS; 2020-06-08)
DX: J96.21 Acute and chronic respiratory failure with hypoxia (principal); J18.9 Pneumonia, unspecified organism; E43 Unspecified severe protein-calorie malnutrition; J44.1 Chronic obstructive pulmonary disease with (acute) exacerbation; G72.81 Critical illness myopathy; J44.0 Chronic obstructive pulmonary disease with (acute) lower respiratory infection; E11.9 Type 2 diabetes mellitus without complications; I10 Essential (primary) hypertension; E78.5 Hyperlipidemia, unspecified; I48.91 Unspecified atrial fibrillation; J38.6 Stenosis of larynx; I48.0 Paroxysmal atrial fibrillation; Z20.822 Contact with and (suspected) exposure to COVID-19; Z93.1 Gastrostomy status; Z90.49 Acquired absence of other specified parts of digestive tract; Z95.1 Presence of aortocoronary bypass graft; Z85.118 Personal history of other malignant neoplasm of bronchus and lung; Z88.0 Allergy status to penicillin; Z87.891 Personal history of nicotine dependence; Z79.01 Long term (current) use of anticoagulants; Z93.0 Tracheostomy status
CPT/HCPCS: 10081; 27000; 50010; 50101; 50917; 62110; 62900; 65100; 65129; 70005

== ENCOUNTER → 2020-08-17 | Outpatient (CLI) | payer OTHER ==
[~2020-08-17] MED LIST changes: +CEFUROXIME500 MG PO; +LOPRESSOR50 MG PER TUBE; +METFORMIN HCL500 M3 PER TUBE; +PEPCID20 MG PER TUBE
== END ==
LOC: LAB 13:44
PROVIDERS: ATTEND Otolaryngology Plastic Surgery within the Head & Neck
DX: Z01.812 Encounter for preprocedural laboratory examination (principal); Z20.822 Contact with and (suspected) exposure to COVID-19

== ENCOUNTER 2020-08-21 11:47 | Day surgery (SDC) | payer OTHER ==
[~2020-08-21] VITALS: Ht 198.1 cm; Wt 95.7 kg
--- NOTE | ~2020-08-21 | O ---
[facility] [place] [address] OPERATIVE REPORT Name: SHAN PETERSEN Room #: DEP [facility].#: [id number] Admission: 08/21/20 Attend Phys: Hansel Luis MD Discharge: 08/21/20 Date of : 56 Report #: [id number] THIS REPORT FOR: cc: Gary Wade David J. DO Thompson, Robert F. MD ~ DOC #: [id number] cc: Gary Wade DO, Tommy K. Ko, MD Robert F. Thompson, MD DATE OF SERVICE: 08/21/2020 PREOPERATIVE DIAGNOSIS: Subglottic tracheal stenosis. POSTOPERATIVE DIAGNOSIS: Subglottic tracheal stenosis. OPERATIVE PROCEDURES: 1. Microlaryngoscopy and excision subglottic tracheal stenosis with CO2 laser. 2. Rigid bronchoscopy. 3. Balloon dilation of tracheal stenosis. ANESTHESIA: General. ESTIMATED BLOOD LOSS: 10 mL. INDICATIONS FOR SURGERY: The patient is a 60-year-old male who sustained a subglottic tracheal stenosis following intubation and tracheostomy tube placement. This is his second attempt at correcting his subglottic tracheal stenosis. He initially had a laser procedure done earlier this year after he was found to be completely obstructed at the level of the subglottic trachea. He now still has about a 3 mm subglottic airway, but it is inadequate for his ventilation and vocalization. He has a tracheostomy and is able to manage with his tracheostomy. DESCRIPTION OF PROCEDURE: The patient was placed on the operating table in the supine position. After general anesthesia was achieved via the tracheostomy tube, the tracheostomy tube itself was removed and a new 8.0 laser safe endotracheal tube was inserted through his tracheostomy site and inflated with saline. This was used through the procedure to avoid ignition of the laser on endotracheal tube. I then proceeded with a microlaryngoscopy using first a Dedo laryngoscope and then a 4 mm telescope. The supraglottic larynx, endolarynx, and hypopharynx all looked normal. The larynx was suspended with a Lewy suspension device and a Dedo type laryngoscope. The subglottic trachea was then visualized and photographed with 4 mm telescope. There was a near total stenosis of the [address] [address] OPERATIVE REPORT Name: SHAN PETERSEN Mar Room #: DEP [facility] M.R.#: [id number] Admission: 08/21/20 Attend Phys: Hansel Luis MD Discharge: 08/21/20 Date of : 56 Report #: [id number] subglottic trachea with about a 3 mm airway at approximately 5 o'clock in the posterior right side. I used a topical epinephrine on cottonoids to vasoconstrict this tissue. I pushed one small cottonoid through the perforation to act as a backdrop. I then used the CO2 laser and the micro manipulator. The CO2 laser was set on 10 elizalde continuous power. I extensively lasered through the stenosis, mostly from the midportion to the anterior tracheal wall. I made a radial cuts to the left and radial cuts to the right with the laser avoiding the vocal cords at the same time. I did place a larger wet cottonoid through the stenosis into the subglottic trachea to avoid hitting the laser against the endotracheal tube. I lasered this thoroughly for a duration of about 30 minutes to try to open this up as best I could. The tissue that I laser through was very firm and dense and even calcified. I then inserted the Acclarent 16 mm tracheal balloon into the trachea through the laryngoscope. It was inflated to 8 cm of water pressure. After 30 seconds, the balloon was deflated and removed, and we examined the end result. We then lasered some more and did this one additional time with the balloon. I then injected 1.0 mL of Kenalog 20 into the submucosa of the tracheal wall. A much improved subglottic tracheal airway was achieved. We shall see whether it mucosalized and becomes adequate for him. The endotracheal tube was then withdrawn, and I inserted the fiberoptic telescope and performed a bronchoscopy with it through the laryngoscope. The scope was passed down to the ai. The subglottic, the distal trachea, and ai all looked normal. The scope was then removed. A #6 Shiley tracheostomy tube was reinserted and secured to the neck with ties. The patient had his larynx and trachea sprayed with topical lidocaine. He was awakened in the operating room and taken to recovery room in stable condition. He will be discharged home with acetaminophen and hydrocodone ____. His diet will be as tolerated. He will return to follow up in 3 weeks. Activity is limited. He cannot return to work. Hansel Luis MD RFMendoza/ANA/KELLI By: 1352 1458 Hansel Luis MD /nt
== END 2020-08-21 16:25 | disposition home or self-care (01) ==
LOC: OR 11:47 → TBA 11:47 → OR 16:25
PROVIDERS: ATTEND Otolaryngology Plastic Surgery within the Head & Neck
DX: J95.5 Postprocedural subglottic stenosis (principal); I10 Essential (primary) hypertension; E78.5 Hyperlipidemia, unspecified; E11.9 Type 2 diabetes mellitus without complications; I48.91 Unspecified atrial fibrillation; J43.9 Emphysema, unspecified; F17.210 Nicotine dependence, cigarettes, uncomplicated; Z85.118 Personal history of other malignant neoplasm of bronchus and lung; Z98.890 Other specified postprocedural states; Z79.899 Other long term (current) drug therapy; Z20.822 Contact with and (suspected) exposure to COVID-19; Z88.0 Allergy status to penicillin; Z79.01 Long term (current) use of anticoagulants
CPT/HCPCS: 50010; 50101; 58707; 62110; 62900; 70005

== ENCOUNTER → 2020-08-29 | Outpatient (CLI) | payer OTHER ==
[2020-08-29 10:48] LABS: ABSOLUTE NEUTROPHILS 8.9 thou/uL (1.4-8.2); BASOPHILS 0.7 % (0.0-2.0); EOSINOPHILS 0.3 % (0.0-3.0); HEMATOCRIT 48.1 % (42.0-52.0); HEMOGLOBIN 15.7 gm/dL (14.0-18.0); LYMPHOCYTES 13.5 % (24.0-44.0); MCH 29.8 pg (26.0-34.0); MCHC 32.7 g/dL (28.0-37.0); MONOCYTES 9.5 % (1.0-8.0); PLATELET COUNT 412 thou/uL (150-400); RBC 5.28 mil/uL (4.50-6.00); RDW 15.7 % (10.5-14.5); WBC 11.7 thou/uL (4.0-11.0)
[2020-08-29 21:13] LABS: ALBUMIN 4.1 g/dL (3.4-5.0); ANION GAP 9 mmol/L (7-16); BUN 11 mg/dL (7-18); CALCIUM 9.4 mg/dL (8.5-10.1); CHLORIDE 102 mmol/L (98-107); CHOLESTEROL 280 mg/dL (<200); CO2 28 mmol/L (21-32); GLUCOSE 163 mg/dL (74-106); HDL CHOLESTEROL 182 mg/dL (>40); LDL CHOLESTEROL 87 mg/dL (<100); POTASSIUM 4.4 mmol/L (3.5-5.1); SGOT 48 U/L (15-37); SGPT 50 U/L (30-65); SODIUM 139 mmol/L (136-145); TC:HDL 1.5 Ratio (Not establshd); TOTAL BILIRUBIN 0.7 mg/dL (0.2-1.0); TOTAL PROTEIN 7.6 g/dL (6.4-8.2); TRIGLYCERIDE 55 mg/dL (<150); URIC ACID* 7.7 mg/dL (3.5-7.2); VLDL 11 mg/dL (<40)
[2020-08-29 23:06] LABS: GLYCOHEMOGLOBIN (HGB A1C) 6.3 % (4.8-5.6)
== END ==
LOC: LAB 10:03
PROVIDERS: ATTEND Family Medicine
DX: E11.40 Type 2 diabetes mellitus with diabetic neuropathy, unspecified (principal); E78.5 Hyperlipidemia, unspecified; M79.604 Pain in right leg

== ENCOUNTER → 2020-09-18 | Outpatient (CLI) | payer OTHER | LOC: LAB 11:27 | PROVIDERS: ATTEND Family Medicine | DX: S91.309A Unspecified open wound, unspecified foot, initial encounter (principal); X58.XXXA Exposure to other specified factors, initial encounter; Y93.89 Activity, other specified; Y92.89 Other specified places as the place of occurrence of the external cause; Y99.8 Other external cause status ==

== ENCOUNTER → 2021-03-13 | Outpatient (CLI) | payer OTHER ==
[2021-03-13 10:46] LABS: ABSOLUTE NEUTROPHILS 5.8 thou/uL (1.4-8.2); BASOPHILS 1.3 % (0.0-2.0); EOSINOPHILS 1.2 % (0.0-3.0); HEMATOCRIT 46.9 % (42.0-52.0); HEMOGLOBIN 15.3 gm/dL (14.0-18.0); LYMPHOCYTES 19.1 % (24.0-44.0); MCHC 32.6 g/dL (28.0-37.0); MCV 95.1 fL (80.0-100.0); MONOCYTES 12.4 % (1.0-8.0); PLATELET COUNT 302 thou/uL (150-400); RBC 4.93 mil/uL (4.50-6.00); RDW 14.3 % (10.5-14.5); WBC 8.9 thou/uL (4.0-11.0)
[2021-03-13 11:00] LABS: ALBUMIN 3.9 g/dL (3.4-5.0); ANION GAP 7 mmol/L (7-16); BUN 8 mg/dL (7-18); CALCIUM 9.2 mg/dL (8.5-10.1); CHLORIDE 97 mmol/L (98-107); CHOLESTEROL 187 mg/dL (<200); CO2 29 mmol/L (21-32); CREATININE 0.8 mg/dL (0.7-1.3); GLUCOSE 153 mg/dL (74-106); HDL CHOLESTEROL 118 mg/dL (>40); LDL CHOLESTEROL 60 mg/dL (<100); POTASSIUM 4.4 mmol/L (3.5-5.1); SGOT 49 U/L (15-37); SGPT 70 U/L (30-65); SODIUM 133 mmol/L (136-145); TC:HDL 1.6 Ratio (Not establshd); TOTAL BILIRUBIN 0.5 mg/dL (0.2-1.0); TOTAL PROTEIN 7.5 g/dL (6.4-8.2); TRIGLYCERIDE 48 mg/dL (<150); VLDL 10 mg/dL (<40)
[2021-03-14 00:06] LABS: CREATININE (ALB/CR) 220.6 mg/dL (Not Estab.); MICROALBUMIN-RND URINE 7.4 ug/mL (Not Estab.)
[2021-03-14 02:06] LABS: GLYCOHEMOGLOBIN (HGB A1C) 6.6 % (4.8-5.6)
== END ==
LOC: LAB 09:35
PROVIDERS: ATTEND Family Medicine
DX: E11.9 Type 2 diabetes mellitus without complications (principal)